=== PATIENT | female | born 1950 | race Caucasian/White ===

== ENCOUNTER 2021-03-18 19:56 | Inpatient (IN) | payer MEDICARE, SELFPAY ==
[2021-03-18 20:30] VITALS: BP 114/77; PULSE 84; PULSE 91; RESP 16; TEMP 36.1; O2SAT 96; O2SAT 97; BMI 24.5
[2021-03-18 21:03] VITALS: BP 114/77; PULSE 91; RESP 16; TEMP 36.1; O2SAT 97
--- NOTE | 2021-03-18 21:11 | PC.NURSE ---
PT arrived to the as an inpatient bed search, seen in the community by TORSTEN.
--- NOTE | 2021-03-18 21:12 | PC.NURSE ---
Aracely OLIVIER provided a contact for the PT's health care proxy. Sirena Brady (daughter) [phone].
--- NOTE | 2021-03-18 22:05 | ED.PSYCH ---
HPI - Psych General Chief Complaint: Psychiatric Symptoms Stated Complaint: SECTION 12 Time Seen by Provider: 03/18/21 21:57 Source: patient Mode of arrival: EMS Limitations: no limitations History of Present Illness HPI Narrative: Patient has history of bipolar disorder with multiple episodes of manic episode when she thrashes the stuff today she trashed her trailer and had only 1 glass of Kahlua earlier at this time patient's car relaxed does not know why this happened, patient on Zyprexa complaint: anxiety Duration: intermittent History of same: Yes Related Data Home Medications Medication Instructions Recorded Confirmed atorvastatin 1 tab PO BEDTIME 03/18/21 03/18/21 lisinopril 1 tab PO DAILY 03/18/21 03/18/21 olanzapine 1 tab PO BEDTIME 03/18/21 03/18/21 trazodone 1 tab PO BEDTIME 03/18/21 03/18/21 Allergies Allergy/AdvReac Type Severity Reaction Status Date / Time No Known Allergies Allergy Unverified 08/13/20 17:06 [No Known Allergies*] Review of Systems Review of Systems: Constitutional : No Fever, No Chills ENT/Mouth : No Ear Pain, No Nasal Congestion, No sore throat Eyes: No Eye Pain, No Swelling, No Redness Cardiovascular : No Chest Pain, No SOB Respiratory : No Cough, No Sputum, No Dyspnea Gastrointestinal : No Nausea, No Vomiting, No Diarrhea, No Hematochezia, No Melena Genitourinary : No Dysuria, No Urinary Frequency, No Hematuria Musculoskeletal : No Myalgias Skin : No Skin Lesions, No rash Neuro : No Weakness, No Numbness, No Paresthesias, No Dizziness, No Headache Psych : positive Anxiety, -ve Depression, -ve SI/HI Heme/Lymph: No Lymphadenopathy Endocrine : No Polyuria, No Polydipsia PMFSH Past Medical History Medical History (Updated 03/19/21 @ 01:36 by Mj Mccann MD) Bipolar 1 disorder Social History Social History Alcohol intake: current Alcohol intake frequency: a few times a month Alcohol type: other Smoking Status: Never smoker Use of substances other than those prescribed or required for medical reasons: No Advance Directives: No Advance Directives Information Provided: Yes Physical Exam Vital Signs: Vital Signs: Last Vital Signs Temp 97 F 03/18/21 21:03 Pulse 91 03/18/21 21:03 Resp 16 03/18/21 21:03 BP 114/77 03/18/21 21:03 Pulse Ox 97 03/18/21 21:03 Body Mass Index 24.5 Appearance: Alert. Oriented X3. No acute distress. Eyes: Pupils equal, round and reactive to light. ENT: Pharynx normal. Neck: Normal inspection. Neck supple. CVS: Normal heart rate and rhythm. Pulses normal. Respiratory: No respiratory distress. Breath sounds normal. Abdomen: Soft and nontender. Bowel sounds are present, no mass palpable, no CVA tenderness Skin: Skin warm and dry. Normal skin color. Normal skin turgor. Extremities: No lower extremity edema. No calf tenderness Neuro: Oriented X 3. No motor deficit. No sensory deficit. Cranial nerves intact no focal deficit Psych: Calm and cooperative fair judgment denied any suicidal ideation or homicidal feeling. No hallucination or delusions MDM - Psych MDM Narrative Medical decision making narrative: Patient with bipolar disorder with episodes of walter. Will get crisis evaluation. Lab Data Attestation: I reviewed the patient's lab results. Labs: Lab Results 03/18/21 03/18/21 03/18/21 Range/Units 21:16 21:16 23:24 Urine Color YELLOW Urine Appearance CLEAR Urine pH 7.0 (5.0-8.0) Ur Specific [place] 1.015 (1.005-1.025) Urine Protein NEG (NEG-TRACE) MG/DL Urine Glucose (UA) NEG (NEG) MG/DL Urine Ketones NEG (NEG) MG/DL Urine Blood NEG (NEG) Urine Nitrite NEG (NEG) Ur Leukocyte Esterase NEG (NEG) Urine Opiates Screen Not Detected (Not Detect) Ur Barbiturates Screen Not Detected (Not Detect) Ur Phencyclidine Scrn Not Detected (Not Detect) Ur Amphetamines Screen Not Detected (Not Detect) U Benzodiazepines Scrn Not Detected (Not Detect) Urine Cocaine Screen Not Detected (Not Detect) U Marijuana (THC) Screen Not Detected (Not Detect) COVID-19 ([facility]) Negative (Negative) COVID-19 Clin Com See Note Discharge Plan Discharge Clinical Impression: Bipolar disorder Qualifiers: Active/Remission status: currently active Current bipolar episode type: mixed Current episode severity: moderate Qualified Code(s): F31.62 - Bipolar disorder, current episode mixed, moderate Prescriptions: No Action atorvastatin 80 mg tablet 1 tab PO BEDTIME RF: 0 trazodone 50 mg tablet 1 tab PO BEDTIME RF: 0 lisinopril 20 mg tablet 1 tab PO DAILY RF: 0 olanzapine 20 mg tablet 1 tab PO BEDTIME RF: 0
[2021-03-18 22:25] LABS: Amphetamine Screen Urine Not Detected (Not Detect); Barbiturates, Urine Not Detected (Not Detect); Benzodiazepines Screen Urine Not Detected (Not Detect); Cannabinoid Screen Urine Not Detected (Not Detect); Cocaine Screen Urine Not Detected (Not Detect); Opiate Screen Urine Not Detected (Not Detect); Phencyclidine Screen Urine Not Detected (Not Detect)
--- NOTE | 2021-03-18 22:41 | PC.NURSE ---
This nurse made two attempt to collect labs from the PT. PT refused to have labs drawn.
[2021-03-18 22:46] LABS: Glucose Urine UA NEG (NEG); Leukocyte Esterase Urine NEG (NEG); Nitrite Urine NEG (NEG); Specific Gravity - Urine 1.015 (1.005-1.025); Urine Blood NEG (NEG); Urine Ketones NEG (NEG); Urine Protein NEG (NEG-TRACE)
[2021-03-18 22:49] LABS: Appearance Urine CLEAR; Color Urine YELLOW
[2021-03-18 23:46] LABS: COVID-19 Test Negative (Negative)
[2021-03-19] MEDS: OLANZapine 10 MG TABLET 20 MG PO ×2 (00:28→20:21)
[2021-03-19] MEDS: traZODone HCL 50 MG TABLET PO ×2 (00:29→20:21)
[2021-03-19] MEDS: Atorvastatin Calcium 80 MG TABLET PO (00:29)
[2021-03-19 01:50] VITALS: BP 122/78; PULSE 97; RESP 16; TEMP 36.9; O2SAT 95
--- NOTE | 2021-03-19 06:56 | PC.NURSE ---
Report recieved. PT currently sleeping, respirations even and unlabored, in no apparent distress. PT is inpatient bedsearch.
[2021-03-19 09:03] VITALS: BP 134/80; PULSE 91; RESP 14; TEMP 36.4; O2SAT 97
--- NOTE | 2021-03-19 09:16 | PC.NURSE ---
Pt politely declined AM medication, states she is too tired. Medication education provided, pt continues to decline.
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
[2021-03-19 12:56] VITALS: BP 146/104; PULSE 110; O2SAT 96
--- NOTE | 2021-03-19 13:00 | PC.NURSE ---
Pt's blood pressure elevated 146/104 HR 110, pt declined am lisinopril, provider notified, ok to give lisinopril now.
[2021-03-19 13:01] VITALS: BP 146/104; PULSE 110
[2021-03-19] MEDS: lisinopriL 20 MG TABLET PO (13:01)
[2021-03-19 18:28] VITALS: BP 103/70; PULSE 116; RESP 18; TEMP 36.6; O2SAT 98
[2021-03-19 20:31] VITALS: BP 107/91; PULSE 82; RESP 16; TEMP 36.7; O2SAT 94
[2021-03-20 01:12] VITALS: BP 101/51; PULSE 65; RESP 15; TEMP 36.7; O2SAT 97
[2021-03-20] MEDS: Docusate Sodium 100 MG CAPSULE PO (02:17)
--- NOTE | 2021-03-20 07:10 | PC.NURSE ---
Report received from PIA Webber. Pt awake, alert, no concerns reported at this time.
[2021-03-20 08:10] VITALS: BP 138/88; PULSE 98; RESP 17; TEMP 36.8; O2SAT 98
--- NOTE | 2021-03-20 08:27 | ECG_ITS ---
Test Reason : MEDCLEARANCE Blood Pressure : / mmHG Vent. Rate : 073 BPM Atrial Rate : 073 BPM P-R Int : 152 ms QRS Dur : 080 ms QT Int : 400 ms P-R-T Axes : 076 051 040 degrees QTc Int : 440 ms Normal sinus rhythm Normal ECG No previous ECGs available Referred By: Madison Rodriguez Electronically Signed By:BENJIE SAMUEL MD
[2021-03-20 08:30] VITALS: BP 138/88; PULSE 88
[2021-03-20] MEDS: lisinopriL 20 MG TABLET PO (08:30)
--- NOTE | 2021-03-20 08:56 | PC.NURSE ---
Pt alert, oriented x3 - states that she has not moved her bowels in one week. Provider aware. Pt denies pain when lying down but reports some when she is walking- walks w/ limp chronically. Pt offered ibuprofen for pain. Pt gives staff permission to speak with daughter.
[2021-03-20 09:17] LABS: MANUAL DIFF FLAG NO
[2021-03-20 09:18] LABS: Basophils Absolute Auto 0.1 X10*3/uL (0.0-0.2); Basophils Percent Auto 0.9 % (0-2); Eosinophils Absolute Auto 0.5 X10*3/uL (0.0-0.4); Eosinophils Percent Auto 6.7 % (0-4); Hematocrit 39.2 % (37-47); Hemoglobin 12.7 g/dl (12.0-16.0); Imm Gran Abs Auto 0.02 X10*3/uL (0.00-0.03); Imm Gran Pct Auto 0.3 % (0.0-0.4); Lymphocytes Absolute Auto 1.8 X10*3/uL (1.2-4.9); Mean Corpuscular HGB Conc 32.4 g/dl (31.0-35.0); Mean Corpuscular Hemoglobin 28.9 pg (27.0-33.0); Mean Corpuscular Volume 89.3 fL (80-98); Mean Platelet Volume 8.9 fL (9.4-12.3); Monocytes Absolute Auto 0.7 X10*3/uL (0.1-1.2); Monocytes Percent Auto 10.8 % (2-11); Neutrophils Absolute Auto 3.7 X10*3/uL (2.0-8.3); Neutrophils Percent Auto 54.3 % (45-73); Platelet Count 292 X10*3/uL (160-400); Red Blood Count 4.39 X10*6/uL (4.20-5.50); Red Cell Distribution Width 12.9 % (11.0-16.0); White Blood Count 6.7 X10*3/uL (4.8-10.8)
[2021-03-20 09:41] LABS: Alanine Aminotransferase 19 U/L (0-31); Albumin Level 3.7 g/dL (3.5-5.0); Alkaline Phosphatase 56 U/L (39-117); Anion Gap 11 (12-20); Aspartate Amino Transferase 19 U/L (5-31); Bilirubin Direct < 0.2 mg/dL (0.0-0.5); Bilirubin Total 0.3 mg/dL (0.0-1.0); Blood Urea Nitrogen 18 mg/dL (9-16); Calcium 8.9 mg/dL (8.4-10.2); Carbon Dioxide 26 mmol/L (22-29); Chloride 108 mmol/L (96-108); Creatinine Clr Calc Pharmacy 61.6; Estimated Glomerular Filt Rate > 60; Glucose Random 76 mg/dL (60-115); Sodium 141 mmol/L (135-145); Total Protein 6.4 g/dL (6.5-8.0)
[2021-03-20 09:49] LABS: Glucose Urine UA NEG (NEG); Leukocyte Esterase Urine 1+ (NEG); Nitrite Urine NEG (NEG); PH 6.5 (5.0-8.0); Specific Gravity - Urine <= 1.005 (1.005-1.025); UACC Culture Trigger YES; Urine Blood NEG (NEG); Urine Ketones NEG (NEG); Urine Protein NEG (NEG-TRACE)
[2021-03-20 09:50] LABS: Appearance Urine CLEAR; Color Urine STRAW
[2021-03-20 10:22] LABS: RBC Urine 0 /HPF (0); Squamous Epithelial Cell Urine 1+ /LPF
[2021-03-20] MEDS: Ibuprofen 600 MG TABLET PO ×2 (10:22→16:59)
--- NOTE | 2021-03-20 10:23 | PC.NURSE ---
Pt pleasant, conversing appropriately w/ staff, no concerns reported at this time.
--- NOTE | 2021-03-20 12:08 | PC.NURSE ---
Report received. Pt resting comfortably. No complaints at this time. Calm and cooperative. Continues to be a section 12 bed search
--- NOTE | 2021-03-20 15:24 | PC.NURSE ---
Pt watching TV in the common area at current, calm and cooperative, no complaints at this time.
[2021-03-20 15:53] VITALS: BP 130/94; PULSE 118; RESP 20; TEMP 36.2; O2SAT 99
--- NOTE | 2021-03-20 18:09 | PC.NURSE ---
Pt eating dinner in the common area, calm and cooperative, no complaints at this time.
[2021-03-20] MEDS: OLANZapine 10 MG TABLET 20 MG PO (20:22)
[2021-03-20] MEDS: traZODone HCL 50 MG TABLET PO (20:22)
[2021-03-20] MEDS: Ibuprofen 400 MG TABLET PO (23:57)
[2021-03-21 01:04] VITALS: BP 136/85; PULSE 64; RESP 15; TEMP 36.6; O2SAT 96
--- NOTE | 2021-03-21 07:08 | PC.NURSE ---
Report received from PIA Webber. Pt awake, stating she has not moved her bowels in '6 or 7 days.' Pt assured will review w/ provider.
[2021-03-21 07:45] VITALS: BP 142/76; PULSE 86
[2021-03-21] MEDS: lisinopriL 20 MG TABLET PO (07:45)
--- NOTE | 2021-03-21 07:50 | PC.NURSE ---
Pt alert, oriented x3. Pt reports no effect from Senna given yesterday. States that Fish oil is the only treatment helpful for constipation. Pt states she slept well.
[2021-03-21 07:53] VITALS: BP 142/76; PULSE 86; RESP 15; TEMP 36.7; O2SAT 96
--- NOTE | 2021-03-21 10:53 | PC.NURSE ---
Pt declined MOM stating 'I can't take that it makes me throw up.' Reviewed medications w/ pt- pt appears able to take medications as pill but not as liquid or powder.
--- NOTE | 2021-03-21 12:06 | PC.NURSE ---
Daughter in to visit- pt alert, pleasant. No concerns at this time.
[2021-03-21] MEDS: bisacodyL 5 MG TABLET.DR 10 MG PO (13:14)
[2021-03-21 14:00] VITALS: RESP 20
--- NOTE | 2021-03-21 16:22 | PC.NURSE ---
Pt awake, alert, pleasant. Conversing w/ staff and other patients at time. No report of any concerns, states visit w/ daughter and friend went well.
[2021-03-21 16:39] VITALS: BP 134/84; PULSE 112; RESP 18; TEMP 36.2; O2SAT 96
--- NOTE | 2021-03-21 17:23 | PC.NURSE ---
Pt initially reporting some pain, chronic in hip and knee- offered tylenol which pt refused. Pt then offered Ibuprofen but now stating she is not having significant pain, and declined. Pt states pain is worse when she has been lying down but when upright or in motion, pt states pain is not significant.
--- NOTE | 2021-03-21 18:16 | PC.NURSE ---
Pt awake, alert, pleasant- currently eating dinner. No concerns reported.
--- NOTE | 2021-03-21 19:36 | PC.NURSE ---
Patient in bed appears sleeping at this time, no distress reported, per report patient had uneventful day, will continue to monitor.
[2021-03-21] MEDS: OLANZapine 10 MG TABLET 20 MG PO (20:33)
[2021-03-21] MEDS: traZODone HCL 50 MG TABLET PO (20:33)
[2021-03-21 23:44] VITALS: BP 119/69; PULSE 87; RESP 16; TEMP 36.6; O2SAT 99
[2021-03-22] MEDS: Ibuprofen 600 MG TABLET PO (05:43)
--- NOTE | 2021-03-22 05:44 | PC.NURSE ---
Patient reported hip pain 05/06, administered Ibuprofen 600 mg as requested/ordered, pending effect, patient in her room refreshing with coffee and gram crackers, will continue to monitor
[2021-03-22 05:45] VITALS: RESP 16
--- NOTE | 2021-03-22 07:03 | PC.NURSE ---
Report received from PIA Webber. Pt resting, resp unlabored.
[2021-03-22 08:40] VITALS: BP 154/94; PULSE 91
[2021-03-22] MEDS: lisinopriL 20 MG TABLET PO (08:40)
--- NOTE | 2021-03-22 10:30 | PC.NURSE ---
Pt reports she moved her bowels yesterday. Also stating that she is having knee pain. Je Rodriguez notified. Pt alert, pleasant, no other concerns reported.
--- NOTE | 2021-03-22 12:08 | PC.NURSE ---
Pt resting, resp unlabored
[2021-03-22 14:00] VITALS: RESP 18
--- NOTE | 2021-03-22 14:48 | PC.NURSE ---
Pt updated re: bed status, currently resting in room.
[2021-03-22] MEDS: Ibuprofen 400 MG TABLET PO (14:55)
[2021-03-22 16:17] VITALS: BP 132/79; PULSE 81; RESP 20; O2SAT 97
--- NOTE | 2021-03-22 16:43 | PC.NURSE ---
Pt reports good effect from the ibuprofen given, awaiting re-evaluation by [facility].
--- NOTE | 2021-03-22 17:13 | PC.NURSE ---
Pt evaluated by TORSTEN
--- NOTE | 2021-03-22 18:39 | PC.NURSE ---
Pt resting, resp unlabored
--- NOTE | 2021-03-22 19:02 | PC.NURSE ---
Report received. PT is sleeping in bed. Respirations even and unlabored. PT is inpatient bed search.
[2021-03-22] MEDS: OLANZapine 10 MG TABLET 20 MG PO (20:38)
[2021-03-22] MEDS: traZODone HCL 50 MG TABLET PO (20:39)
[2021-03-22] MEDS: Atorvastatin Calcium 80 MG TABLET PO (20:40)
[2021-03-23 00:05] VITALS: BP 100/62; PULSE 80; RESP 16; TEMP 36.2; O2SAT 93
--- NOTE | 2021-03-23 07:06 | PC.NURSE ---
Report recieved. PT currently walking around unit, calm and cooperative. PT is inpatient bedsearch.
[2021-03-23 09:41] VITALS: BP 115/79; PULSE 96; RESP 17; TEMP 36.2; O2SAT 96
[2021-03-23 10:01] VITALS: BP 115/79; PULSE 96
[2021-03-23] MEDS: lisinopriL 20 MG TABLET PO (10:01)
[2021-03-23] MEDS: Docusate Sodium 100 MG CAPSULE PO (14:05)
[2021-03-23 18:46] VITALS: BP 118/62; PULSE 75; RESP 18; TEMP 36.7; O2SAT 95
--- NOTE | 2021-03-23 19:20 | PC.NURSE ---
Report received. Pt is sleeping in her room. Respirations even and unlabored. PT waiting to be transferred to .
[2021-03-23] MEDS: OLANZapine 10 MG TABLET 20 MG PO (20:25)
[2021-03-23] MEDS: traZODone HCL 50 MG TABLET PO (20:26)
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
[2021-03-24 06:00] VITALS: BP 147/98; PULSE 103; RESP 18; TEMP 36.2; O2SAT 97
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
[2021-03-24 09:13] VITALS: BP 112/61; PULSE 112; RESP 17; TEMP 36.4; O2SAT 96
[2021-03-24 09:15] VITALS: BP 112/61; PULSE 112
[2021-03-24] MEDS: lisinopriL 20 MG TABLET PO (09:15)
[2021-03-24 11:27] LABS: Cholesterol 155 mg/dL; HDL Cholesterol 69 mg/dL; LDL Cholesterol Calculated 61 mg/dl; Triglycerides 127 mg/dL
[2021-03-24 12:35] LABS: Estimated Average Glucose 111 mg/dL; Hemoglobin A1c % 5.5 %
[2021-03-24] MEDS: Docusate Sodium 100 MG CAPSULE PO (14:50)
[2021-03-24 18:00] VITALS: BP 145/70; PULSE 116; TEMP 36.6
[2021-03-24] MEDS: Ibuprofen 400 MG TABLET PO (19:44)
[2021-03-24] MEDS: OLANZapine 10 MG TABLET 20 MG PO (20:59)
[2021-03-24] MEDS: Atorvastatin Calcium 80 MG TABLET PO (20:59)
[2021-03-24] MEDS: traZODone HCL 50 MG TABLET PO (21:00)
[2021-03-25 05:11] VITALS: BP 101/68; PULSE 92; RESP 18; TEMP 36.4; O2SAT 95
[2021-03-25 07:00] VITALS: BMI 23.3
[2021-03-25 08:23] VITALS: BP 108/74; PULSE 85
[2021-03-25] MEDS: lisinopriL 20 MG TABLET PO (08:23)
--- NOTE | 2021-03-25 10:01 | HO.PSYCHPN ---
Subjective Subjective Date of Service: 03/25/21 Reason For Visit: Acute Psychosis Interim History: Vitals: WNL Pt friendly, calm and cooperative on approach. She reports she's in a good mood and that she slept well. Patient asked if flex o writer operator has spoken to her daughter and says she's hoping to go home soon. Parts Specialist discussed history further and pt explained that right after she spoke to her sister she became upset and started destroying the house but that it got it all out of me and fully resolved. She shared that she has a history of severe manic episodes but none for a while. Parts Specialist asked pt about daughters concern that patient sometimes lets homeless people stay with her. Dena says she does this from time to time and knows it's not a good idea; she explains she's trying to help them, but ultimately it's not really fair to [her] since they take advantage of [her] kindness and ultimately not fair to them since they expect money even when patient does not have extra. Patient says she won't do it anymore. Pt reiterates she'd like to go home but that she'll defer to teams decision. Other hx: hurt rt knee in skiing accident decades ago Hurt right hip from fall at work pt used to work for [employer] and retired at 65 Parts Specialist spoke with patients daughter Adriane who corroborates patients account Daughter, who visited yesterday and speaks to her daily while on the unit, agrees that patient is with it...not manic and pretty much back to her normal self. She reports patient has had a very good year since her last admission may 2020 and has been stable and in good mood. She says she may have been a little off in the day or two leading up to incident, but agrees it appears to have fully resolved and corroborates that patients relationship with sister is very triggering. Daughter agrees that patient is safe and likely able to discharge soon to return home. Medication Compliance: Yes Side effects from medications: No Mental Status Exam Mental Status Exam Narrative: Pt is alert and oriented; behavior is cooperative, friendly and calm; patient is not in distress; dressed in hospital gown with adequate hygiene; mood is described as good and affect congruent; eye contact appropriate; Speech is normal rate, volume and prosody and not pressured; no psychomotor agitation/retardation present; thought process is organized, linear, logical and goal directed. Thought content is on getting back home and otherwise pertinent to relevant topics and without any delusional content, paranoid ideations or grandiosity; denies any SI/HI. There is no evidence of perceptual disturbance. Patients insight and judgment appear intact. Diagnostics Vital Signs (24Hr): Vital Signs - 24 hr 03/24/21 18:00 03/25/21 05:11 03/25/21 08:23 Temperature 97.9 F 97.5 F Pulse Rate 116 H 92 85 Respiratory Rate 18 Blood Pressure 145/70 H 101/68 108/74 Pulse Oximetry 95 Body Mass Index 24.5 Labs Results: 03/20/21 09:12 03/20/21 09:12 Labs: Laboratory Results - last 48 hr 03/24/21 03/24/21 10:45 10:45 Estimat Average Glucose 111 Hemoglobin A1c % 5.5 Triglycerides 127 Cholesterol 155 LDL Cholesterol, Calc 61 HDL Cholesterol 69 Medications Medications Current Medications Generic Name Dose Route Start Last Admin Trade Name Freq PRN Reason Stop Dose Admin Acetaminophen 650 mg 03/23/21 21:34 Acetaminophen 325 Mg Tablet PO Q6H PRN Headache/Pain Mild Scale (1-3) Al Hydroxide/Mg Hydroxide 30 ml 03/23/21 21:34 Magnesium Hydrox/Alum Hydrox 30 Ml Oral.Susp PO Q6H PRN Heartburn/Nausea Atorvastatin Calcium 80 mg 03/18/21 23:45 03/24/21 20:59 Atorvastatin Calcium 80 Mg Tablet PO 80 mg BEDTIME RAFAELA Administration Cefuroxime Axetil 250 mg 03/22/21 10:00 03/24/21 21:00 Cefuroxime Axetil 250 Mg Tablet PO 03/29/21 09:59 250 mg Q12H RAFAELA Administration Docusate Sodium 100 mg 03/23/21 13:23 03/24/21 14:50 Docusate Sodium 100 Mg Capsule PO 100 mg BID PRN Administration Constipation Ibuprofen 400 mg 03/22/21 10:56 03/24/21 19:44 Ibuprofen 400 Mg Tablet PO 400 mg RQ6H PRN Administration pain Lisinopril 20 mg 03/19/21 09:00 03/25/21 08:23 Lisinopril 20 Mg Tablet PO 20 mg DAILY RAFAELA Administration Protocol Magnesium Hydroxide 30 ml 03/21/21 09:05 Milk Of Magnesia 30 Ml Oral.Susp PO DAILY PRN Constipation Magnesium Hydroxide 30 ml 03/23/21 21:34 Milk Of Magnesia 30 Ml Oral.Susp PO DAILY PRN Constipation Nicotine Polacrilex 4 mg 03/23/21 21:34 Nicotine Polacrilex 2 Mg Gum BUCCAL Q2H PRN Nicotine Cravings Olanzapine 20 mg 03/18/21 23:45 03/24/21 20:59 Olanzapine 10 Mg Tablet PO 20 mg BEDTIME RAFAELA Administration Senna 7.5 ml 03/20/21 10:28 03/20/21 15:55 Senna [place] Extract Oral Syrup 15 Ml Syrup PO 7.5 ml ONCE PRN Administration Constipation Trazodone HCl 50 mg 03/18/21 23:45 03/24/21 21:00 Trazodone Hcl 50 Mg Tablet PO 50 mg BEDTIME RAFAELA Administration Allergies Allergies Allergy/AdvReac Type Severity Reaction Status Date / Time No Known Allergies Allergy Unverified 08/13/20 17:06 [No Known Allergies*] Assessment & Plan Assessment/Plan: Pt is a 68 yo female with hx of Bipolar disorder, hx of trauma and etoh abuse (sober for 3 years) who presents following few days of decompensation and destructive behavior in face of psychosocial stresses. Pt has been stable for the past year, without manic or depressive episodes, sober and taking medications regularly until this incident, the explosive part only lasting a few hours. Pt's has chronic guilt over past behaviors which can intermittently become overwhelming; this recent brief bout of dysregulated behavior seems to have been triggered by upsetting phone call with patients sister which historically exacerbates guilt. Patient's behaviors did get out of control. However, given that pt was at baseline until the episode, the episode was triggered by a specific event, was brief and quickly fully resolved (pt says i got it out of my system ), it seems this incident was an overwhelmingly emotional response following exacerbation of her past trauma and not a manic episode. Since admission, pt has remained calm, in good behavioral control, without manic symptoms and with insight into illness. She is taking medications that seems to be effective and are well tolerated; she has good rapport with outpt providers and supportive family. Patient daughter corroborates and agrees patient is at baseline. Parts Specialist discussed admission and patient is willing to remain on unit to further demonstrate stability, however as long as she continues to remain stable, patient is appropriate for discharge on 03/26/21. DX: Adjustment disorder with disturbance of mood and conduct, in full remission Bipolar 1, severe, recurrent in remission (by hx) Provisional dx of PTSD, chronic PLAN: -safety, stabilization -pt on CV -continue Zyprexa 20mg at bedtime (flex o writer operator confirmed with [facility] in [place] that pt is consistent with this med); pt says she likes this med, it's effective and denies any side-effects. Parts Specialist offered to explain risks of taking this medication but patient said she did not want to hear it and wants to remain taking on it -continue other home meds -pt reached out to primary provider, Dr. Db Figueredo. Greater than 50% of the session was spent on counseling and/or coordination of care Reason for contiued inpatient stay Substantial Risk for: stable for discharge (further demonstrate stability)
--- NOTE | 2021-03-25 14:34 | PM.PSYDC ---
DS: Providers Provider Date of Service: 03/26/21 Date of admission: 03/23/21 21:22 Primary care physician: Unknown Physician DS: Diagnosis Discharge Diagnosis (1) Bipolar 1 disorder, manic, full remission: Status: Acute (2) Adjustment disorder with mixed disturbance of emotions and conduct in remission: Status: Acute DS: Medications Discharge Medications Home Medications: Home Medications Medication Instructions Recorded Confirmed atorvastatin 1 tab PO BEDTIME 03/18/21 03/18/21 lisinopril 1 tab PO DAILY 03/18/21 03/18/21 olanzapine 1 tab PO BEDTIME 03/18/21 03/18/21 trazodone 1 tab PO BEDTIME 03/18/21 03/18/21 Discharge Plan Discharge Patient Disposition: Home, Self-Care Discharge Diagnosis: adjustment disorder with disturbance of emotion and conduct, in full remission bipolar type I, severe in full remission Referrals: LIN [facility]IEST [Other] - 03/27/21 ([facility] 03[facility]21 they will assist with medication administration and will also assess the need for physical therapy. ) [facility] [Other] (Referral submitted. They will follow up with you to arrange an in-home assessment) Aparna Paez (therapist) [Other] (Referral made. Either they will call you, or hospital social work supervisor will call you with appointment) Db Figueredo (psychiatrist) [Other] (Referral made. Either they will call you, or hospital social work supervisor will call you with appointment) Gail Kirkpatrick MD [Physician] - 03/31/21 9:45 am (Follow up appointment over phone. ) Discharge Medications: Continued atorvastatin 80 mg tablet 1 tab PO BEDTIME RF: 0 trazodone 50 mg tablet 1 tab PO BEDTIME RF: 0 lisinopril 20 mg tablet 1 tab PO DAILY RF: 0 olanzapine 20 mg tablet 1 tab PO BEDTIME RF: 0 Discharge Orders: Discharge Order (Routine); Ordered 03/26/21 Ordered By: Wesley Bacon Diet: regular diet Activity on Discharge: As tolerated Stand Alone Forms: Patient Portal Discharge page, Community Support Care Plan Goals: Take medications as prescribed. See outpatient providers for follow up. Health Concerns: Follow up with PCP regarding lipid panel and HBA1C Plan of Treatment: Continue with outpatient providers Assessment: Patient is not in imminent risk of harm to self or others, is stable and appropriate for discharge Data Data Completed and Pending Completed studies during hospitalization [Text1]: 03/18/21 03/18/21 03/18/21 21:16 21:16 23:24 WBC RBC Hgb Hct MCV MCH MCHC RDW Plt Count MPV Immature Gran % (Auto) Neut % (Auto) Lymph % (Auto) [place] % (Auto) Eos % (Auto) Baso % (Auto) Lymph # (Auto) [place] # (Auto) Eos # (Auto) Baso # (Auto) Abs Immat Gran (auto) Absolute Neuts (auto) Absolute Nucleated RBC Nucleated RBC % (auto) Sodium Potassium Chloride Carbon Dioxide Anion Gap BUN Creatinine Estim Creat Clear Calc Estimated GFR Random Glucose Estimat Average Glucose Hemoglobin A1c % Calcium Total Bilirubin Direct Bilirubin AST ALT Alkaline Phosphatase Total Protein Albumin Triglycerides Cholesterol LDL Cholesterol, Calc HDL Cholesterol Urine Color YELLOW Urine Appearance CLEAR Urine pH 7.0 Ur Specific [place] 1.015 Urine Protein NEG Urine Glucose (UA) NEG Urine Ketones NEG Urine Blood NEG Urine Nitrite NEG Ur Leukocyte Esterase NEG Urine RBC Urine WBC Ur Squamous Epith Cells Urine Bacteria Urine Mucus Urine Opiates Screen Not Detected Ur Barbiturates Screen Not Detected Ur Phencyclidine Scrn Not Detected Ur Amphetamines Screen Not Detected U Benzodiazepines Scrn Not Detected Urine Cocaine Screen Not Detected U Marijuana (THC) Screen Not Detected COVID-19 ([facility]) Negative COVID-19 Clin Com See Note 03/20/21 03/20/21 03/20/21 09:12 09:12 09:35 WBC 6.7 RBC 4.39 Hgb 12.7 Hct 39.2 MCV 89.3 MCH 28.9 MCHC 32.4 RDW 12.9 Plt Count 292 MPV 8.9 L Immature Gran % (Auto) 0.3 Neut % (Auto) 54.3 Lymph % (Auto) 27.0 [place] % (Auto) 10.8 Eos % (Auto) 6.7 H Baso % (Auto) 0.9 Lymph # (Auto) 1.8 [place] # (Auto) 0.7 Eos # (Auto) 0.5 H Baso # (Auto) 0.1 Abs Immat Gran (auto) 0.02 Absolute Neuts (auto) 3.7 Absolute Nucleated RBC 0.000 Nucleated RBC % (auto) 0.0 Sodium 141 Potassium 4.0 Chloride 108 Carbon Dioxide 26 Anion Gap 11 L BUN 18 H Creatinine 0.69 Estim Creat Clear Calc 61.6 Estimated GFR > 60 Random Glucose 76 Estimat Average Glucose Hemoglobin A1c % Calcium 8.9 Total Bilirubin 0.3 Direct Bilirubin < 0.2 AST 19 ALT 19 Alkaline Phosphatase 56 Total Protein 6.4 L Albumin 3.7 Triglycerides Cholesterol LDL Cholesterol, Calc HDL Cholesterol Urine Color STRAW Urine Appearance CLEAR Urine pH 6.5 Ur Specific [place] <= 1.005 Urine Protein NEG Urine Glucose (UA) NEG Urine Ketones NEG Urine Blood NEG Urine Nitrite NEG Ur Leukocyte Esterase 1+ H Urine RBC 0 Urine WBC 5-9 H Ur Squamous Epith Cells 1+ Urine Bacteria NONE Urine Mucus NONE Urine Opiates Screen Ur Barbiturates Screen Ur Phencyclidine Scrn Ur Amphetamines Screen U Benzodiazepines Scrn Urine Cocaine Screen U Marijuana (THC) Screen COVID-19 ([facility]) Ion Core 03/24/21 03/24/21 10:45 10:45 WBC RBC Hgb Hct MCV MCH MCHC RDW Plt Count MPV Immature Gran % (Auto) Neut % (Auto) Lymph % (Auto) [place] % (Auto) Eos % (Auto) Baso % (Auto) Lymph # (Auto) [place] # (Auto) Eos # (Auto) Baso # (Auto) Abs Immat Gran (auto) Absolute Neuts (auto) Absolute Nucleated RBC Nucleated RBC % (auto) Sodium Potassium Chloride Carbon Dioxide Anion Gap BUN Creatinine Estim Creat Clear Calc Estimated GFR Random Glucose Estimat Average Glucose 111 Hemoglobin A1c % 5.5 Calcium Total Bilirubin Direct Bilirubin AST ALT Alkaline Phosphatase Total Protein Albumin Triglycerides 127 Cholesterol 155 LDL Cholesterol, Calc 61 HDL Cholesterol 69 Urine Color Urine Appearance Urine pH Ur Specific [place] Urine Protein Urine Glucose (UA) Urine Ketones Urine Blood Urine Nitrite Ur Leukocyte Esterase Urine RBC Urine WBC Ur Squamous Epith Cells Urine Bacteria Urine Mucus Urine Opiates Screen Ur Barbiturates Screen Ur Phencyclidine Scrn Ur Amphetamines Screen U Benzodiazepines Scrn Urine Cocaine Screen U Marijuana (THC) Screen COVID-19 ([facility]) COVID-[facility] CRM 03/20/21 09:32 Urine clean catch - Clean Catch Midstream Urine Culture - Final No growth. DS: Summary Time Spent with Patient Time attestation: Total time spent providing and/or coordinating discharge services:
[2021-03-25] MEDS: Ibuprofen 400 MG TABLET PO (16:19)
[2021-03-25 16:46] VITALS: BP 102/60; PULSE 86; RESP 16; TEMP 36.5; O2SAT 96
[2021-03-25] MEDS: Docusate Sodium 100 MG CAPSULE PO (18:43)
[2021-03-25] MEDS: OLANZapine 10 MG TABLET 20 MG PO (20:17)
[2021-03-25] MEDS: traZODone HCL 50 MG TABLET PO (20:17)
[2021-03-26 05:48] VITALS: BP 106/68; PULSE 104; RESP 18; TEMP 36.4; O2SAT 96
[2021-03-26 08:19] VITALS: BP 100/55; PULSE 93; RESP 16; O2SAT 95
[2021-03-26 08:48] VITALS: BP 100/55; PULSE 93
[2021-03-26] MEDS: lisinopriL 20 MG TABLET PO (08:48)
--- NOTE | 2021-03-26 10:05 | PC.NURSE ---
PT REPORTS READINESS AND AWARENESS FOR DISCHARGE. PT REPORTS A DECREASE IN ANXIETY AND DEPRESSION. PT STATES THAT SHE THOUGHT SHE WAS EMILIANO BUT REALIZED SHE IS NOT . PT DOES NOT RECALL WHAT HAPPENED WHEN SHE BLACKED OUT AND DESTROYED HER HOUSE. PT HAS BEEN VISIBLE ON THE UNIT. SHE IN SOCIALIZING WITH HER PEERS AND STAFF. PT HAS BEEN EATING WELL. SHE HAS BEEN SLEEPING BETTER. PT STATES THAT SHE IS EXCITED TO GO HOME BUT EVERYONEHERE HAS RACHAEL SO NICE AND IT HAS BEEN A PLEASANT EXPERIENCE . PT IS INDEPENDENTLY TAKING CARE OF HER ADLS, SHOWERING AND CHANGING HER CLOTHING. PT WAS RECEPTIVE TO EDUCATION REGARDING COPING SKILLS AND MEDICATION. PT IS GOAL ORIENTED AND DRIVEN TO SUCCEED IN HER TREATMENT PLAN. PTS PAPERWORK HAS BEEN FAXED TO PROVIDER PER PROTOCOL.
--- NOTE | 2021-03-26 10:31 | P.PNPSI_ITS ---
Subjective Subjective Date of Service: 03/26/21 Reason For Visit: Acute Psychosis Interim History: met with patient she reports being in a good mood and looking forward to returning home. She says she slept well and denies any SI or AVH. She continues to feel back to her normal self. She reiterates that she does not need any prescriptions for medications as they were recently filled. Medication Compliance: Yes Side effects from medications: No Attending Groups: Yes Mental Status Exam Mental Status Exam Narrative: Pt is alert and oriented; behavior is cooperative, friendly and calm; patient is not in distress; dressed in casual and appropriate cloths with good hygiene; mood is described as good and affect congruent; eye contact appropriate; Speech is normal rate, volume and prosody and not pressured; no psychomotor agitation/retardation present; thought process is organized, linear, logical and goal directed. Thought content is on getting back home and otherwise pertinent to relevant topics and without any delusional content, paranoid ideations or grandiosity; denies any SI/HI. There is no evidence of perceptual disturbance. Patients insight and judgment appear intact. Diagnostics Vital Signs (24Hr): Vital Signs - 24 hr 03/25/21 16:46 03/26/21 05:48 03/26/21 08:19 Temperature 97.7 F 97.6 F Pulse Rate 86 104 H 93 Respiratory Rate 16 18 16 Blood Pressure 102/60 106/68 100/55 L Pulse Oximetry 96 96 95 03/26/21 08:48 Temperature Pulse Rate 93 Respiratory Rate Blood Pressure 100/55 L Pulse Oximetry Body Mass Index 23.3 Labs Results: 03/20/21 09:12 03/20/21 09:12 Labs: Laboratory Results - last 48 hr 03/24/21 03/24/21 10:45 10:45 Estimat Average Glucose 111 Hemoglobin A1c % 5.5 Triglycerides 127 Cholesterol 155 LDL Cholesterol, Calc 61 HDL Cholesterol 69 Medications Medications Current Medications Generic Name Dose Route Start Last Admin Trade Name Freq PRN Reason Stop Dose Admin Acetaminophen 650 mg 03/23/21 21:34 Acetaminophen 325 Mg Tablet PO Q6H PRN Headache/Pain Mild Scale (1-3) Al Hydroxide/Mg Hydroxide 30 ml 03/23/21 21:34 Magnesium Hydrox/Alum Hydrox 30 Ml Oral.Susp PO Q6H PRN Heartburn/Nausea Atorvastatin Calcium 80 mg 03/18/21 23:45 03/25/21 20:18 Atorvastatin Calcium 80 Mg Tablet PO Not Given BEDTIME RAFAELA Cefuroxime Axetil 250 mg 03/22/21 10:00 03/26/21 08:48 Cefuroxime Axetil 250 Mg Tablet PO 03/29/21 09:59 250 mg Q12H RAFAELA Administration Docusate Sodium 100 mg 03/23/21 13:23 03/25/21 18:43 Docusate Sodium 100 Mg Capsule PO 100 mg BID PRN Administration Constipation Ibuprofen 400 mg 03/22/21 10:56 03/25/21 16:19 Ibuprofen 400 Mg Tablet PO 400 mg RQ6H PRN Administration pain Lisinopril 20 mg 03/19/21 09:00 03/26/21 08:48 Lisinopril 20 Mg Tablet PO 20 mg DAILY RAFAELA Administration Protocol Magnesium Hydroxide 30 ml 03/21/21 09:05 Milk Of Magnesia 30 Ml Oral.Susp PO DAILY PRN Constipation Magnesium Hydroxide 30 ml 03/23/21 21:34 Milk Of Magnesia 30 Ml Oral.Susp PO DAILY PRN Constipation Nicotine Polacrilex 4 mg 03/23/21 21:34 Nicotine Polacrilex 2 Mg Gum BUCCAL Q2H PRN Nicotine Cravings Olanzapine 20 mg 03/18/21 23:45 03/25/21 20:17 Olanzapine 10 Mg Tablet PO 20 mg BEDTIME RAFAELA Administration Senna 7.5 ml 03/20/21 10:28 03/20/21 15:55 Senna [place] Extract Oral Syrup 15 Ml Syrup PO 7.5 ml ONCE PRN Administration Constipation Trazodone HCl 50 mg 03/18/21 23:45 03/25/21 20:17 Trazodone Hcl 50 Mg Tablet PO 50 mg BEDTIME RAFAELA Administration Allergies Allergies Allergy/AdvReac Type Severity Reaction Status Date / Time No Known Allergies Allergy Unverified 08/13/20 17:06 [No Known Allergies*] Assessment & Plan Assessment & Plan (1) Bipolar 1 disorder, manic, full remission: Status: Acute Code(s): F31.74 - Bipolar disorder, in full remission, most recent episode manic (2) Adjustment disorder with mixed disturbance of emotions and conduct in remission: Status: Acute Code(s): F43.25 - Adjustment disorder with mixed disturbance of emotions and conduct Assessment and Plan: Impression Pt is a 68 yo female with hx of Bipolar disorder, hx of trauma and etoh abuse (sober for 3 years) who presents following few days of decompensation and destructive behavior in face of psychosocial stresses. Pt seems to have been stable, without manic episodes and taking medications until this incident which reportedly lasted only 1-2 days. Pt's has chronic guilt over past behaviors which can intermittently become overwhelming; this recent brief bout of dysreg ulation seems to have been triggered by upsetting phone call with patients sister which historically exacerbates guilt. Patient's behaviors did get out of control. However, although she dissociated, destroyed furniture and had delusional thought that she was Declan Dayo, this episode does not seem to be a manic episode, but rather an overwhelmingly emotional response following exacerbation of her past trauma. Patient was reportedly at baseline prior to this, the episode was triggered by a specific event, brief and now seems to have fully resolved. Patient currently presents as calm, in behavioral control and with insight into illness. She says she feels her normal self, stable and safe and would like discharge home. Her daughter agrees that patient is stable and appropriate for discharge home. Patient is taking medications that are effective and well tolerated and she has good rapport with outpt providers. Rib Cloth Knitter communicated with Dr. Figureedo who agrees that patient has been stable on Olanzapine and does not recommend med changes. In addition to enjoying support from her daughters, patient will also now have a VNA whose first visit is tomorrow. Patient is not in imminent risk of self-harm or harm of others and does not meet criteria for involuntary commitment; her request for discharge is honored. DX: adjustment disorder with mixed disturbance of emotions and conduct, in remission Bipolar 1, severe, recurrent in remission (by hx) Provisional dx of PTSD, chronic PLAN: appropriate for discharge PATIENT IS NOT ON MORE THAN ONE SCHEDULED ANTIPSYCHOTIC MEDICATION Greater than 50% of the session was spent on counseling and/or coordination of care Reason for contiued inpatient stay Substantial Risk for: stable for discharge
== END 2021-03-26 11:00 | disposition home or self-care (01) | DRG 882 ==
LOC: HO.ED 03-23 14:30 → HO.PM5 03-23 21:25
PROVIDERS: Physician Assistant; Admitting Provider Psychiatry & Neurology Psychiatry; Emergency Provider Internal Medicine; Visit Provider Psychiatry & Neurology Psychiatry
DX: F43.25 Adjustment disorder with mixed disturbance of emotions and conduct (principal); N39.0 Urinary tract infection, site not specified; F31.62 Bipolar disorder, current episode mixed, moderate; F10.11 Alcohol abuse, in remission; Z20.822 Contact with and (suspected) exposure to COVID-19; Z79.899 Other long term (current) drug therapy
CPT/HCPCS: 36415; 80048; 80061; 80076; 80307; 81001; 81003; 83036; 85025; 87086; 87635; 93005; 99285

== ENCOUNTER 2021-10-08 15:43 | Emergency (ER) | payer MEDICARE, SELFPAY ==
[2021-10-08 16:06] VITALS: BP 158/67; BP 171/96; PULSE 56; PULSE 75; RESP 18; TEMP 36.4; O2SAT 96; O2SAT 98; BMI 21.4
--- NOTE | 2021-10-08 16:29 | ED_ITS ---
HPI - General Adult General Chief complaint: Psychiatric Symptoms Stated complaint: CRISIS Time Seen by Provider: 10/08/21 16:26 Source: patient Limitations: no limitations History of Present Illness HPI narrative: This is a 71-year-old female who was brought in by ambulance. The the patient's family stated that they believe she is having a manic episode and has been destroying things at her home. Patient herself complains that she think she drank too much wine last night. She is somewhat vague. She cannot say if she drank anything today. She complains of nausea. She denies depression. She denies any headache, chest pain, shortness of breath, abdominal pain. She cannot explain who called the ambulance. She states she lives at home alone and that no one checks on her daily. She is not aware of any neighbor's she may have disrupted Related Data Home Medications Medication Instructions Recorded Confirmed atorvastatin 80 mg tablet 1 tab PO BEDTIME 03/18/21 03/18/21 lisinopril 20 mg tablet 1 tab PO DAILY 03/18/21 03/18/21 olanzapine 20 mg tablet 1 tab PO BEDTIME 03/18/21 03/18/21 trazodone 50 mg tablet 1 tab PO BEDTIME 03/18/21 03/18/21 Allergies Allergy/AdvReac Type Severity Reaction Status Date / Time No Known Allergies Allergy Unverified 08/13/20 17:06 [No Known Allergies*] Review of Systems Review of Systems: Yes all other systems are reviewed and are negative Constitutional: Constitutional: Reports as per HPI Eyes: Eyes: Reports as per HPI and Reports no additional eye complaints ENT: Reports system reviewed and no additional complaints, except as documented, Reports as per HPI, Denies nasal congestion, Denies nasal discharge and Denies sore throat Cardiovascular: Cardiovascular: Reports as per HPI, Denies chest pain and Denies dyspnea Respiratory: Respiratory: Reports as per HPI, Denies cough and Denies dyspnea Gastrointestinal: Gastrointestinal: Reports as per HPI, Denies abdominal pain, Denies diarrhea, Reports nausea and Denies vomiting Genitourinary: Genitourinary: Reports as per HPI, Denies hematuria, Denies urinary frequency and Denies dysuria Musculoskeletal: Musculoskeletal: Reports no additional musculoskeletal complaints and Denies numbness Integumentary/Breasts: Skin/Breast: Reports as per HPI and Denies rash Neurologic: Reports as per HPI, Denies focal weakness, Denies numbness and Denies Sensory deficit (Neuro) Psychiatric: Psychiatric: Reports no additional psychiatric complaints and Reports as per HPI Endocrine: Endocrine: Reports no additional endocrine complaints and Reports as per HPI Hematologic/Lymphatic: Hematologic/Lymphatic: Reports no additional hematologic/lymphatic complaints, Reports as per HPI and Reports other (No peripheral edema) [facility] Past Medical History Medical History Bipolar 1 disorder Social History Social History Household Members: None Housing: House Do you presently have visiting nurse or other home services: No Alcohol intake: current Alcohol intake frequency: a few times a month Alcohol type: other Advance Directives: Yes Advance Directives on File: Yes Advance Directives Date on File: 03/19/21 service: No Sexual orientation: Straight/Heterosexual Physical Exam Vital Signs: Vital Signs: Last Vital Signs Temp 97.6 F 10/08/21 16:06 Pulse 56 10/08/21 16:06 Resp 18 10/08/21 16:06 BP 158/67 H 10/08/21 16:06 Pulse Ox 96 10/08/21 16:06 Body Mass Index 21.4 Const: Other: Patient does not appear manic, she is lying on her side, holding a vomit bag over her mouth, speaking normally, without any pressured speech or tangential speech. Patient actually appears more depressed than manic. No psychomotor agitation General: cooperative, no acute distress and alert Orientation/consciousness: oriented to person and patient oriented x3 HENMT: Head: Yes normal to inspection Eyes: General: appearance normal, both eyes and all related structures Eyelids: Yes eyelids normal Conjunctivae: conjunctivae normal Pupils: Equal, round and reactive pupils present Neck: Neck: Yes normal visual inspection and Yes supple Chest: Chest palpation & inspection: normal inspection of the chest Resp: Effort & Inspection: normal respiratory effort Auscultation: clear to auscultation bilaterally Cardio: Rate: regular rate Rhythm: regular rhythm Heart sounds: S1 normal heart sound present, S2 normal heart sound present, no gallops, no murmurs and no rubs GI: Palpation (GI): Soft to palpation, nontender and Other GI palpation findings present (Non-distended) Auscultation: normal bowel sounds Skin: General skin exam: no rashes or lesions noted Neuro: General: oriented to person, patient oriented x3, no focal motor deficits and CN's II-XI intact bilaterally Cranial nerves: Yes Equal, round and reactive pupils present Cognition (Neuro): normal cognition Motor exam (neuro): 5/5 motor strength present throughout Sensory Exam: No Sensory deficit (Neuro) Extrem: General: Yes normal to inspection and Yes no pedal edema Psych: Appearance: grossly normal Affect: normal affect Medical Decision Making MDM Narrative Medical decision making narrative: Upon re-evaluation at 17:39, the patient is sitting up eating a sandwich, feels better. She wants to go home. She is not suicidal. She admits alcohol use but does not want her daughter to know that she is here. She recalls being on the floor but cannot recall exactly what happened. She wants to go home by taxi. She has common cooperative, no evidence of any manic episode. Review of records reveals that she had had a similar presentation in February and was evaluated by Psychiatry, was found not to be a danger to herself, was found not to have any reason to be held against her will, and was discharged. The patient's alcohol level is about 0.14. Labs are otherwise unremarkable. If the patient is clinically sober she will be discharged home The patient ate voraciously, but still stated that she felt weak. Ambulation was assessed and the patient still required assistance. Patient has no medical indication for admission. I do not believe she needs a crisis evaluation. Patient is to be held in the emergency department overnight and re-evaluated for discharge home in the morning. Patient is being signed out to Dr. Anderson at change of shift at 21:00, who will re-evaluate the patient prior to discharge in the morning Lab Data Result diagrams: 10/08/21 16:49 10/08/21 16:49 Labs: Lab Results 10/08/21 10/08/21 10/08/21 Range/Units 16:49 16:49 16:49 WBC 6.3 (4.8-10.8) X10*3/uL RBC 4.46 (4.20-5.50) X10*6/uL Hgb 12.9 (12.0-16.0) g/dl Hct 38.7 (37.0-47.0) % MCV 86.8 (80.0-98.0) fL MCH 28.9 (27.0-33.0) pg MCHC 33.3 (31.0-35.0) g/dl RDW 12.9 (11.0-16.0) % Plt Count 277 (160-400) X10*3/uL MPV 8.9 L (9.4-12.3) fL Immature Gran % (Auto) 0.3 (0.0-0.4) % Neut % (Auto) 70.4 (45-73) % Lymph % (Auto) 21.1 (20-40) % [place] % (Auto) 6.2 (2-11) % Eos % (Auto) 1.4 (0-4) % Baso % (Auto) 0.6 (0-2) % Lymph # (Auto) 1.3 (1.2-4.9) X10*3/uL [place] # (Auto) 0.4 (0.1-1.2) X10*3/uL Eos # (Auto) 0.1 (0.0-0.4) X10*3/uL Baso # (Auto) 0.0 (0.0-0.2) X10*3/uL Abs Immat Gran (auto) 0.02 (0.00-0.03) X10*3/uL Absolute Neuts (auto) 4.4 (2.0-8.3) x10*3/uL Absolute Nucleated RBC 0.000 (0.0-0.012) X10*3/uL Nucleated RBC % (auto) 0.0 (0.0-0.2) /100WBC Sodium 130 L (135-145) mmol/L Potassium 4.0 (3.3-5.1) mmol/L Chloride 100 (96-108) mmol/L Carbon Dioxide 16 L (22-29) mmol/L Anion Gap 18 (12-20) BUN 9 (9-16) mg/dL Creatinine 0.62 (0.5-1.4) mg/dL Estim Creat Clear Calc 59.8 Estimated GFR > 60 Random Glucose 92 (60-115) mg/dL Calcium 8.8 (8.4-10.2) mg/dL Total Bilirubin 0.6 (0.0-1.0) mg/dL AST 32 H D (5-31) U/L ALT 33 H (0-31) U/L Alkaline Phosphatase 59 (39-117) U/L Total Protein 7.2 (6.5-8.0) g/dL Albumin 4.2 (3.5-5.0) g/dL Urine Color Urine Appearance Urine pH (5.0-8.0) Ur Specific [place] (1.005-1.025) Urine Protein (NEG-TRACE) MG/DL Urine Glucose (UA) (NEG) MG/DL Urine Ketones (NEG) MG/DL Urine Blood (NEG) Urine Nitrite (NEG) Ur Leukocyte Esterase (NEG) Urine Opiates Screen (Not Detect) Urine Fentanyl Screen (Not Detect) Ur Barbiturates Screen (Not Detect) Ur Phencyclidine Scrn (Not Detect) Ur Amphetamines Screen (Not Detect) U Benzodiazepines Scrn (Not Detect) Urine Cocaine Screen (Not Detect) U Marijuana (THC) Screen (Not Detect) Ethyl Alcohol 141 mg/dL 10/08/21 10/08/21 Range/Units 17:38 17:38 WBC (4.8-10.8) X10*3/uL RBC (4.20-5.50) X10*6/uL Hgb (12.0-16.0) g/dl Hct (37.0-47.0) % MCV (80.0-98.0) fL MCH (27.0-33.0) pg MCHC (31.0-35.0) g/dl RDW (11.0-16.0) % Plt Count (160-400) X10*3/uL MPV (9.4-12.3) fL Immature Gran % (Auto) (0.0-0.4) % Neut % (Auto) (45-73) % Lymph % (Auto) (20-40) % [place] % (Auto) (2-11) % Eos % (Auto) (0-4) % Baso % (Auto) (0-2) % Lymph # (Auto) (1.2-4.9) X10*3/uL [place] # (Auto) (0.1-1.2) X10*3/uL Eos # (Auto) (0.0-0.4) X10*3/uL Baso # (Auto) (0.0-0.2) X10*3/uL Abs Immat Gran (auto) (0.00-0.03) X10*3/uL Absolute Neuts (auto) (2.0-8.3) x10*3/uL Absolute Nucleated RBC (0.0-0.012) X10*3/uL Nucleated RBC % (auto) (0.0-0.2) /100WBC Sodium (135-145) mmol/L Potassium (3.3-5.1) mmol/L Chloride (96-108) mmol/L Carbon Dioxide (22-29) mmol/L Anion Gap (12-20) BUN (9-16) mg/dL Creatinine (0.5-1.4) mg/dL Estim Creat Clear Calc Estimated GFR Random Glucose (60-115) mg/dL Calcium (8.4-10.2) mg/dL Total Bilirubin (0.0-1.0) mg/dL AST (5-31) U/L ALT (0-31) U/L Alkaline Phosphatase (39-117) U/L Total Protein (6.5-8.0) g/dL Albumin (3.5-5.0) g/dL Urine Color STRAW Urine Appearance CLEAR Urine pH 6.0 (5.0-8.0) Ur Specific [place] 1.010 (1.005-1.025) Urine Protein NEG (NEG-TRACE) MG/DL Urine Glucose (UA) NEG (NEG) MG/DL Urine Ketones NEG (NEG) MG/DL Urine Blood NEG (NEG) Urine Nitrite NEG (NEG) Ur Leukocyte Esterase NEG (NEG) Urine Opiates Screen Not Detected (Not Detect) Urine Fentanyl Screen Not Detected (Not Detect) Ur Barbiturates Screen Not Detected (Not Detect) Ur Phencyclidine Scrn Not Detected (Not Detect) Ur Amphetamines Screen Not Detected (Not Detect) U Benzodiazepines Scrn Not Detected (Not Detect) Urine Cocaine Screen Not Detected (Not Detect) U Marijuana (THC) Screen Not Detected (Not Detect) Ethyl Alcohol mg/dL Discharge Plan Discharge Clinical Impression: Alcohol intoxication, Weakness Patient Disposition: Still a Patient Instructions: Alcohol Intoxication (ED), Weakness (ED) Additional Instructions: Follow-up with your primary care physician. Take yourmedications as usual. Avoid alcohol use. Return for any new or worsened symptoms. Prescriptions: No Action atorvastatin 80 mg tablet 1 tab PO BEDTIME RF: 0 trazodone 50 mg tablet 1 tab PO BEDTIME RF: 0 lisinopril 20 mg tablet 1 tab PO DAILY RF: 0 olanzapine 20 mg tablet 1 tab PO BEDTIME RF: 0
[2021-10-08 16:55] LABS: MANUAL DIFF FLAG NO
[2021-10-08 16:56] LABS: Basophils Percent Auto 0.6 % (0-2); Eosinophils Absolute Auto 0.1 X10*3/uL (0.0-0.4); Eosinophils Percent Auto 1.4 % (0-4); Hematocrit 38.7 % (37.0-47.0); Hemoglobin 12.9 g/dl (12.0-16.0); Imm Gran Abs Auto 0.02 X10*3/uL (0.00-0.03); Imm Gran Pct Auto 0.3 % (0.0-0.4); Lymphocytes Absolute Auto 1.3 X10*3/uL (1.2-4.9); Lymphocytes Percent Auto 21.1 % (20-40); Mean Corpuscular HGB Conc 33.3 g/dl (31.0-35.0); Mean Corpuscular Hemoglobin 28.9 pg (27.0-33.0); Mean Corpuscular Volume 86.8 fL (80.0-98.0); Mean Platelet Volume 8.9 fL (9.4-12.3); Monocytes Absolute Auto 0.4 X10*3/uL (0.1-1.2); Monocytes Percent Auto 6.2 % (2-11); Neutrophils Absolute Auto 4.4 x10*3/uL (2.0-8.3); Neutrophils Percent Auto 70.4 % (45-73); Platelet Count 277 X10*3/uL (160-400); Red Blood Count 4.46 X10*6/uL (4.20-5.50); Red Cell Distribution Width 12.9 % (11.0-16.0); White Blood Count 6.3 X10*3/uL (4.8-10.8)
[2021-10-08] MEDS: Ondansetron ODT 4 MG TAB.RAPDIS TRANSLINGU (17:08)
[2021-10-08 17:28] LABS: Alanine Aminotransferase 33 U/L (0-31); Albumin Level 4.2 g/dL (3.5-5.0); Alkaline Phosphatase 59 U/L (39-117); Anion Gap 18 (12-20); Aspartate Amino Transferase 32 U/L (5-31); Bilirubin Total 0.6 mg/dL (0.0-1.0); Blood Urea Nitrogen 9 mg/dL (9-16); Calcium 8.8 mg/dL (8.4-10.2); Carbon Dioxide 16 mmol/L (22-29); Chloride 100 mmol/L (96-108); Creatinine Clr Calc Pharmacy 59.8; Estimated Glomerular Filt Rate > 60; Glucose Random 92 mg/dL (60-115); Sodium 130 mmol/L (135-145); Total Protein 7.2 g/dL (6.5-8.0)
[2021-10-08 17:32] LABS: Ethanol 141 mg/dL
[2021-10-08 18:12] LABS: Appearance Urine CLEAR; Color Urine STRAW; Glucose Urine UA NEG (NEG); Leukocyte Esterase Urine NEG (NEG); Nitrite Urine NEG (NEG); Urine Blood NEG (NEG); Urine Ketones NEG (NEG); Urine Protein NEG (NEG-TRACE)
[2021-10-08 18:25] LABS: Amphetamine Screen Urine Not Detected (Not Detect); Barbiturates, Urine Not Detected (Not Detect); Benzodiazepines Screen Urine Not Detected (Not Detect); Cannabinoid Screen Urine Not Detected (Not Detect); Cocaine Screen Urine Not Detected (Not Detect); Fentanyl, urine Not Detected (Not Detect); Opiate Screen Urine Not Detected (Not Detect); Phencyclidine Screen Urine Not Detected (Not Detect)
[2021-10-09 01:54] VITALS: BP 106/59; PULSE 70; RESP 18; TEMP 36.1; O2SAT 96
== END 2021-10-09 05:57 | disposition home or self-care (01) ==
PROVIDERS: Emergency Provider Emergency Medicine; PCP Internal Medicine
DX: F10.129 Alcohol abuse with intoxication, unspecified (principal); Y90.6 Blood alcohol level of 120-199 mg/100 ml; R53.1 Weakness; M16.11 Unilateral primary osteoarthritis, right hip
CPT/HCPCS: 36415; 80053; 80307; 81003; 82077; 85025; 99283; 99285

== ENCOUNTER 2021-10-15 09:43 | Inpatient (IN) | payer MEDICARE, SELFPAY ==
--- NOTE | 2021-10-15 09:51 | ED.PSYCH ---
HPI - Psych General Chief Complaint: Psychiatric Symptoms Stated Complaint: ams Time Seen by Provider: 10/15/21 09:51 Source: patient and EMS Mode of arrival: EMS Limitations: other (poor cooperation) History of Present Illness MD complaint: other (delusions not taking medications) Onset (ago): unknown Duration: constant History of same: Yes Relieving factors: none Exacerbating factors: none Context: not taking psychiatric medications Associated psychiatric symptoms: delusions ( I am Declan ) Associated symptoms: denies other symptoms Treatments prior to arrival: placed on mental health hold Related Data Home Medications Medication Instructions Recorded Confirmed lisinopril 20 mg tablet 1 tab PO DAILY 03/18/21 10/15/21 trazodone 50 mg tablet 1 tab PO BEDTIME PRN 03/18/21 10/15/21 Allergies Allergy/AdvReac Type Severity Reaction Status Date / Time No Known Allergies Allergy Unverified 08/13/20 17:06 [No Known Allergies*] Review of Systems Review of Systems: ROS unable to be obtained due to poor cooperation [facility] Past Medical History Attestation statement: The following information was validated with the patient. Medical History Bipolar 1 disorder Social History Social History Household Members: None Housing: House Do you presently have visiting nurse or other home services: No Alcohol intake: current Alcohol intake frequency: a few times a month Alcohol type: other Patient Tobacco Use Status: Tobacco use Unknown Advance Directives: Yes Advance Directives on File: Yes Advance Directives Date on File: 03/19/21 Healthcare Proxy: Yes Guardian: No service: No Sexual orientation: Straight/Heterosexual Physical Exam Vital Signs: Vital Signs: Last Vital Signs Temp 98.4 F 10/15/21 10:25 Pulse 92 10/15/21 10:25 Resp 16 10/15/21 10:25 BP 124/78 10/15/21 10:25 Pulse Ox 96 10/15/21 10:25 Body Mass Index 20.9 Appearance: Alert. Oriented X2. No acute distress. Eyes: Pupils equal, round and reactive to light. ENT: Pharynx normal. Neck: Normal inspection. Neck supple. CVS: Normal heart rate and rhythm. Pulses normal. Respiratory: No respiratory distress. Breath sounds normal. Abdomen: Soft and non-tender. Skin: Skin warm and dry. Normal skin color. Normal skin turgor. Extremities: trace pitting lower extremity edema. No calf ttp Neuro: Oriented X 2. No motor deficit. No sensory deficit. CN2-12 intact Psych: calm but then refuses workup, I am declan. my daughter states I need to get admitted. Course Course Course Narrative: Physician observation started at 123pm Patient placed in physician observation because the patient needed more time for evaluation and to assess the need for inpatient psychiatry. At the time observation was started the patient's vitals were stable, patient is alert and oriented but slightly agitated, Neuro confused: nonfocal, CV RRR, Lungs clear signed out pending labs MDM - Psych MDM Narrative Medical decision making narrative: 71 yo female with bipolar off of her medications at this time will obtain labs once medically cleared [facility] consult - dispo per their input Lab Data Labs: Lab Results 10/15/21 Range/Units 14:01 COVID-19 ([facility]) Negative (Negative) COVID-19 Clin Com See Note Discharge Plan Discharge Clinical Impression: Bipolar disorder Qualifiers: Active/Remission status: remission status unspecified Qualified Code(s): F31.9 - Bipolar disorder, unspecified Patient Disposition: Admitted As Inpatient
[2021-10-15 10:25] VITALS: BP 124/78; BP 137/84; PULSE 90; PULSE 92; RESP 16; TEMP 36.9; O2SAT 96; O2SAT 97; BMI 20.9
--- NOTE | 2021-10-15 10:47 | PHA.MEDREC ---
Pharmacy Consult ? Medication Reconciliation Pharmacy has completed the medication reconciliation. Patient reports the only medication she takes regular is her lisinopril but does not think she should be on it. She stoped taking atorvastatin 80 mg at bedtime and olanzaping 20 mg at bedtime. Suzie Joe, PharmD
--- NOTE | 2021-10-15 11:00 | PC.NURSE ---
patients daughter [phone] states shes the HCP reported last admits meds helped patient look her best
--- NOTE | 2021-10-15 11:39 | PC.NURSE ---
patient continues t refuse covid swab
--- NOTE | 2021-10-15 13:52 | PC.NURSE ---
despite agreeing to [facility] c., provider patient has since declined to be swabbed for covid, and to complete labs
[2021-10-15 14:27] LABS: COVID-19 Test Negative (Negative)
--- NOTE | 2021-10-15 16:49 | PC.NURSE ---
Rn to Rn with Hazel Duncan.
--- NOTE | 2021-10-15 17:49 | PC.NURSE ---
pt has been ambulatory in department since this rn arrival at 3pm. uses walker mostly. steady on feet. frequent snacks. answers questions appropriately. awaits transfer to S1. Report has been given to RN on S1. Pt finally gave a urine but continues to refuse EKG and labs.
[2021-10-15 18:03] LABS: Amphetamine Screen Urine Not Detected (Not Detect); Barbiturates, Urine Not Detected (Not Detect); Benzodiazepines Screen Urine Not Detected (Not Detect); Cannabinoid Screen Urine Not Detected (Not Detect); Cocaine Screen Urine Not Detected (Not Detect); Fentanyl, urine Not Detected (Not Detect); Opiate Screen Urine Not Detected (Not Detect); Phencyclidine Screen Urine Not Detected (Not Detect)
[2021-10-15 18:17] VITALS: BP 125/71; PULSE 94; TEMP 36.2; O2SAT 94
[2021-10-15 18:44] LABS: Appearance Urine CLEAR; Color Urine YELLOW; Glucose Urine UA NEG (NEG); Leukocyte Esterase Urine NEG (NEG); Nitrite Urine NEG (NEG); Specific Gravity - Urine >= 1.030 (1.005-1.025); Urine Blood NEG (NEG); Urine Ketones NEG (NEG); Urine Protein NEG (NEG-TRACE)
[2021-10-15 20:00] VITALS: BP 115/76; PULSE 92; RESP 17; TEMP 36.8; O2SAT 96
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
--- NOTE | 2021-10-15 22:04 | PC.ADMIT ---
PT is 71 year old female admitted to this unit at 19:50. Ar[place] [facility] by WC with [employer]PRES[employer]ATIVE, 2 MHAs, and RN. PT alert to self only. PT called her daughter Damaris to let her know she was here. PT has had prior admissions to . PT presnting with delusional toughts, I am Declan and so are you. PT signed CV in ER before arriving to unit, once on unit PT signed a 3 day, all parties were notified of this. PT has PMH of multiple [facility] admissions, manic episodes, bipolar D/O. Daughter Sirena reports PT has not been sleeping, off medications and recently went missing. PT unable to answer some admission questions, denies Si/HI A/VH. PT feels safe on unit.
[2021-10-16] MEDS: Acetaminophen 325 MG TABLET 650 MG PO (04:20)
[2021-10-16] MEDS: hydrOXYzine HCL 25 MG TABLET PO ×2 (04:21→11:26)
--- NOTE | 2021-10-16 05:40 | PC.NURSE ---
At about 00:00 pt woke up and requested to have toast and coffee which pt got and was redirected to bed. pt then woke up about 3 hours later, she appeared agitated, anxious, nervous, weepy, loud and disruptive. When staff approached pt, pt held on to staff and let go of her body weight. Staff assisted her to a sitting position on floor. Pt then began to yell, curse, threw her walker severally while stating we are a team. Team work. I am Declan and you fucking have to listen to me. Pt requested some coffee and water and on both occasions, pt threw them on floor and appeared to be smiling. Pt later requested some tylenol for headache which was given to pt.
[2021-10-16 06:00] VITALS: BP 149/79; TEMP 36.9
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
[2021-10-16] MEDS: OLANZapine 10 MG VIAL IM (17:15)
--- NOTE | 2021-10-16 17:56 | PC.NURSE ---
Pt. eating calmly standing at the dresser in her room. This nurse standing outside room, because pt threw food and drinks given to her earlier in the shift. Suddenly, without obvious external provocation, pt disrobed to naked and began throwing food and belongings around room, yelling, cursing at Lang and Aditya. Pt began walking toward doorway naked and agitated. Staff stood in doorway redirecting. Pt refused medication for agitation and continued throwing items and threatening staff ( get the f--- out or you will be condemned like Declan on the cross and i will hammer you with my own fists . Security and hospitalist informed. Zyprexa 10mg IM administered (right gluteus) at 1715. Pt cries, paces around room. Pt refuses vital signs at 1730, but states, I'm better now. Pt asleep on bed at 1740, no signs of discomfort or distress. Daughter notified of incident and need for medical intervention. Daughter reports that disrobing is a common behavior for this pt when not taking prescribed medications. Daughter reports however long she told you she's been off her meds, its actually way longer than that. I've been trying to get her help from crisis, but they wouldn't help, I'm so glad she is there now.
--- NOTE | 2021-10-16 18:15 | PM.EVENT ---
Event Note Date of Service: 10/16/21 Event Note: Patient seen examined post medical restraint, at 6:15 pm Patient noted to have normal breath sounds, awake answering questions appropriately in no distress Offered no acute complaints.
[2021-10-16 19:51] VITALS: BP 141/77; PULSE 98; RESP 18; TEMP 36.3; O2SAT 96
[2021-10-16] MEDS: OLANZapine 5 MG TABLET PO (20:04)
[2021-10-17 06:00] VITALS: BP 129/74; PULSE 99; RESP 16; TEMP 36.6; O2SAT 95
[2021-10-17 08:42] VITALS: BP 129/74; PULSE 99
[2021-10-17] MEDS: lisinopriL 20 MG TABLET PO (08:42)
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
[2021-10-17 19:52] VITALS: BP 115/60; PULSE 102; RESP 18; TEMP 36.5; O2SAT 92
[2021-10-17] MEDS: OLANZapine 10 MG TABLET PO (20:33)
[2021-10-17] MEDS: Acetaminophen 325 MG TABLET 650 MG PO (21:56)
[2021-10-18] MEDS: traZODone HCL 50 MG TABLET PO ×3 (01:22→23:23)
[2021-10-18 06:00] VITALS: BP 90/62; PULSE 82; TEMP 36.2; O2SAT 95
[2021-10-18 09:21] VITALS: BP 90/60; PULSE 82
[2021-10-18] MEDS: lisinopriL 20 MG TABLET PO (09:21)
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
[2021-10-18] MEDS: OLANZapine 10 MG TABLET PO (22:58)
[2021-10-19] MEDS: OLANZapine ODT 10 MG TAB.RAPDIS TRANSLINGU (03:55)
[2021-10-19] MEDS: traZODone HCL 50 MG TABLET PO (03:55)
[2021-10-19 06:00] VITALS: RESP 18; TEMP 36.4; O2SAT 99
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
[2021-10-19 18:00] VITALS: PULSE 94; RESP 18; TEMP 36.2; O2SAT 95
[2021-10-20] MEDS: OLANZapine ODT 10 MG TAB.RAPDIS 15 MG TRANSLINGU ×2 (02:00→20:36)
[2021-10-20 06:00] VITALS: RESP 18; TEMP 36.9; O2SAT 96
[2021-10-20] MEDS: OLANZapine ODT 10 MG TAB.RAPDIS TRANSLINGU (08:05)
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
[2021-10-21 01:40] VITALS: BP 121/68; PULSE 76; RESP 18; O2SAT 96
--- NOTE | 2021-10-21 01:54 | PC.NURSE ---
At about 01:15am, patient Dena was observed holding side bar while partially awake. Staff offered to assist patient to bed which she declined and would not move. Just about when staff had stepped away, patient was observed lowering self to floor in a sitting position while holding unto side bar. Staff immediately ran to assist patient and unfortunately, patient had already reached the floor by the time staff got to her. Vitals taken immediately after P76, Bp 121/68 and O2 sat 96%. MD Byrd aware. It is important to note that prior to this incident, patient has been and is independent with ambulation on unit.
[2021-10-21 06:00] VITALS: BP 106/52; PULSE 96; RESP 16; O2SAT 96
[2021-10-21 07:00] VITALS: BMI 22.4
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
[2021-10-21 18:00] VITALS: BP 129/83; PULSE 102; RESP 16; TEMP 36.8; O2SAT 95
[2021-10-21] MEDS: OLANZapine ODT 10 MG TAB.RAPDIS 15 MG TRANSLINGU (22:40)
--- NOTE | 2021-10-22 02:27 | PC.NURSE ---
PT needing frequent redirection to go to bed to try to sleep. PT ringing call light repeatedly asking for help. PT is independent with ambulation and transfers, asking for help to put shoes on, ect. At 2:20 am PT continuously ringing call barillas so RN was standing outside the room and had to go in every few seconds to turn off call barillas. This nurse witnessed PT slide from bed to purposely sit on floor. VSS, no injuries, playground supervisor and MD notified. T 97, O2 97%RA, P 68, BP 144/74. PT keeps coming out of room, not listening, being loud.
--- NOTE | 2021-10-22 02:46 | PC.NURSE ---
PT offerred prn zyprexa, at 2:40am PT took from RN threw it on the floor and threw cup of water on this RN. PT refused zyprexa prn for agitation at this time.
--- NOTE | 2021-10-22 05:32 | PC.NURSE ---
PT reaching over desk at nurse station to knock things over after being told phones do not get turned on until 7am, redirected away
[2021-10-22 06:00] VITALS: BP 110/55; PULSE 98; RESP 18; TEMP 36.4; O2SAT 94
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
[2021-10-22 21:20] VITALS: PULSE 88; RESP 17; TEMP 36.7; O2SAT 94
--- NOTE | 2021-10-23 04:20 | PC.NURSE ---
PT asking for 'a chocolate chip cookie' this gag writer said I do not have a chocolate chip cookie and PT proceeded to tip over computer monitors and throw pens and pencils that she had reached for. PT said 'if I don't get a cookie I will destroy the place.' PT trying to rip glass out at nurse station. PT also took apart the paper trash can and was walking around with it, PT dumped out the trash onto the floor. Security called, PT talked to security and was acting very calm and sweet. PT needs constant redirection.
[2021-10-23] MEDS: OLANZapine ODT 10 MG TAB.RAPDIS TRANSLINGU ×2 (05:19→23:11)
[2021-10-23 09:20] VITALS: BP 136/74; PULSE 100; RESP 14; TEMP 37.2; O2SAT 95
[2021-10-23 09:22] VITALS: BP 136/74; PULSE 100
[2021-10-23] MEDS: lisinopriL 20 MG TABLET PO (09:22)
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
[2021-10-23 18:00] VITALS: BP 130/78; PULSE 103; RESP 18; TEMP 36.4; O2SAT 95
[2021-10-23] MEDS: OLANZapine ODT 10 MG TAB.RAPDIS 15 MG TRANSLINGU (20:08)
[2021-10-23] MEDS: LORazepam 1 MG TABLET PO (23:11)
--- NOTE | 2021-10-24 00:19 | PC.NURSE ---
At 22:50 PT became verbally and physically aggressive yelling and swearing, throwing items which she reached for over nurse station. PT took a piece off printer and threw it at staff. Security and RN detasseling crew supervisor called. notified, new order to give 1mg Ativan stat along with prn zyprexa 10mg. PT compliant and took meds po with security present. PT currently sleeping.
[2021-10-24 06:00] VITALS: BP 129/83; PULSE 93; TEMP 36.9; O2SAT 96
[2021-10-24 09:00] VITALS: BP 129/83; PULSE 93
[2021-10-24] MEDS: lisinopriL 20 MG TABLET PO (09:00)
[2021-10-24] MEDS: LORazepam 2 MG/ML VIAL 1 MG IM (10:44)
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
[2021-10-24 20:44] VITALS: PULSE 88; RESP 16; TEMP 36.8; O2SAT 95
[2021-10-24] MEDS: OLANZapine ODT 10 MG TAB.RAPDIS 15 MG TRANSLINGU (21:40)
[2021-10-25] MEDS: OLANZapine ODT 10 MG TAB.RAPDIS TRANSLINGU ×2 (05:52→08:28)
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
[2021-10-25 08:00] VITALS: BP 119/80; PULSE 93; TEMP 36.4; O2SAT 94
[2021-10-25 08:28] VITALS: BP 119/80; PULSE 93
[2021-10-25] MEDS: lisinopriL 20 MG TABLET PO (08:28)
[2021-10-25] MEDS: Acetaminophen 325 MG TABLET 650 MG PO (09:56)
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
[2021-10-25] MEDS: OLANZapine ODT 10 MG TAB.RAPDIS 15 MG TRANSLINGU (22:08)
[2021-10-26] MEDS: OLANZapine ODT 10 MG TAB.RAPDIS TRANSLINGU ×2 (03:23→08:21)
[2021-10-26 03:32] VITALS: BP 121/83; PULSE 95; RESP 18; TEMP 37.1; O2SAT 97
[2021-10-26 08:21] VITALS: BP 134/75; PULSE 85
[2021-10-26] MEDS: lisinopriL 20 MG TABLET PO (08:21)
[2021-10-26 10:49] VITALS: BP 134/75; PULSE 85; RESP 16; TEMP 36.6; O2SAT 94
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
[2021-10-26] MEDS: OLANZapine ODT 10 MG TAB.RAPDIS 15 MG TRANSLINGU (23:00)
--- NOTE | 2021-10-27 11:34 | P.PNPSI_ITS ---
Subjective Subjective Date of Service: 10/27/21 Reason For Visit: ams Subjective Notes: Conditional Voluntary Interim History: The nursing staff reported that she can be very verbally abusive and angry and later she behaves childish and helpless. Yesterday, she couldn't sleep well and she was agitated, she tried to grab the computer of the vest front presser and needed to use PRN Zyprexa PO. Today, she was calm and pleasant with me but later she was very angry and abus adarsh towards an RN when she tried to grab the food of another patient. I could discuss with the patient treatment options and she agreed to add Depakoted as a mood stabilizer. Mental Status Exam Mental Status Exam Patient Appearance: Well Grooomed Patient Orientation: Person Level of Consciousness: Awake Patient Behavior: Guarded, Suspicious, Aggressive and Avoidant Mood Description: Labile Affect Description: Constricted Patient Cognition Impaired: Yes Ability to Follow Directions: Fair Speech Pattern: Soft-Spoken Hallucinations: Auditory Delusions: Paranoid Ideation and Grandiose Thought Process: Illogical and Evasive Thought Content: positive for Disorganized Judgement: Poor Diagnostics Vital Signs (24Hr): BMI result Body Mass Index 22.4 Medications Medications Current Medications Acetaminophen (Acetaminophen 325 Mg Tablet) 650 mg PO Q6H PRN PRN Reason: Headache/Pain Mild Scale (1-3) Last Admin: 10/25/21 09:56 Dose: 650 mg Documented by: Al Hydroxide/Mg Hydroxide (Magnesium Hydrox/Alum Hydrox 30 Ml Oral.Susp) 30 ml PO Q6H PRN PRN Reason: Heartburn/Nausea Lisinopril (Lisinopril 20 Mg Tablet) 20 mg PO DAILY [facility]; Protocol Last Admin: 10/26/21 08:21 Dose: 20 mg Documented by: Lorazepam (Lorazepam 1 Mg Tablet) 1 mg PO DAILY@1900 PRN PRN Reason: agitation Magnesium Hydroxide (Milk Of Magnesia 30 Ml Oral.Susp) 30 ml PO DAILY PRN PRN Reason: Constipation Olanzapine (Olanzapine Odt 10 Mg Tab.Rapdis) 10 mg TRANSLINGU BID PRN PRN Reason: agitation and psychosis Last Admin: 10/26/21 08:21 Dose: 10 mg Documented by: Olanzapine (Olanzapine Odt 10 Mg Tab.Rapdis) 15 mg TRANSLINGU BEDTIME [facility] Last Admin: 10/26/21 23:00 Dose: 15 mg Documented by: Allergies Allergies Allergy/AdvReac Type Severity Reaction Status Date / Time No Known Allergies Allergy Unverified 08/13/20 17:06 [No Known Allergies*] Assessment & Plan Assessment & Plan (1) Bipolar 1 disorder: Status: Acute Code(s): F31.9 - Bipolar disorder, unspecified Assessment and Plan: Pt is a 71 yo female with hx of Bipolar disorder, hx of trauma and etoh abuse (sober for 3 years) who presents following few days of decompensation and dest ructive and disorganized behavior. She had stopped Zyprexa, stopped sleeping, became delusional and left her home and went to a hotel. Believes she is Declan. DX: Bipolar 1, severe, manic with psychosis Provisional dx of PTSD, chronic PLAN: - Tiitration of Zyprexa was continued up to 20 mg po qhs. - Add Depakote 250 mg po tid as a mood stabilizer. - filing for 7 and 8 if the patient continues being noncompliant ativan 1 mg PRN after dinner added, for agitation I spent minutes with the patient and/or on the patient floor today, greater than?50% of which was spent counseling/coordinating care. Reason for contiued inpatient stay Substantial Risk for: harm to others, inability to function, rapid decompensation and med/psych decompensation
[2021-10-27] MEDS: Divalproex Sodium 250 MG TABLET.DR PO ×2 (16:15→20:10)
[2021-10-27] MEDS: OLANZapine ODT 10 MG TAB.RAPDIS 20 MG TRANSLINGU (20:10)
[2021-10-27] MEDS: diphenhydrAMINE HCL 25 MG TABLET PO (20:10)
[2021-10-28 07:00] VITALS: BMI 23.5
[2021-10-28] MEDS: lisinopriL 20 MG TABLET PO (08:10)
[2021-10-28] MEDS: Divalproex Sodium 250 MG TABLET.DR PO (08:10)
[2021-10-28 08:26] VITALS: BP 121/71; PULSE 95; RESP 16; TEMP 36.4; O2SAT 93
[2021-10-28] MEDS: OLANZapine ODT 10 MG TAB.RAPDIS TRANSLINGU (09:26)
--- NOTE | 2021-10-28 16:32 | HO.PSYCHPN ---
Subjective Subjective Date of Service: 10/28/21 Reason For Visit: ams Subjective Notes: Conditional Voluntary Interim History: The nursing staff reported that the patient was agitated that she needed to be medicated a.m. with olanzapine since she was aggressive, destroying property and throwing her tray into the nursing station. On interview, the patient talked to me after she had a long nap and she states that she was doing fine. She looks confused but still with severe mood lability Mental Status Exam Mental Status Exam Patient Appearance: Well Grooomed Patient Orientation: Person Level of Consciousness: Awake Patient Behavior: Cooperative Mood Description: Labile Affect Description: Constricted Patient Cognition Impaired: Yes Ability to Follow Directions: Fair Speech Pattern: Clear Hallucinations: None Delusions: Not Present Thought Process: Distracted Thought Content: positive for Perseveration, positive for Loose Associations and positive for Thought Blocking Judgement: Fair Diagnostics Vital Signs (24Hr): Vital Signs - 24 hr 10/28/21 08:26 Temperature 97.5 F Pulse Rate 95 Respiratory Rate 16 Blood Pressure 121/71 Pulse Oximetry 93 BMI result Body Mass Index 23.5 Medications Medications Current Medications Acetaminophen (Acetaminophen 325 Mg Tablet) 650 mg PO Q6H PRN PRN Reason: Headache/Pain Mild Scale (1-3) Last Admin: 10/25/21 09:56 Dose: 650 mg Documented by: Al Hydroxide/Mg Hydroxide (Magnesium Hydrox/Alum Hydrox 30 Ml Oral.Susp) 30 ml PO Q6H PRN PRN Reason: Heartburn/Nausea Divalproex Sodium (Divalproex Sodium 250 Mg Tablet.Dr) 250 mg PO TID [facility] Last Admin: 10/28/21 08:10 Dose: 250 mg Documented by: Lisinopril (Lisinopril 20 Mg Tablet) 20 mg PO DAILY [facility]; Protocol Last Admin: 10/28/21 08:10 Dose: 20 mg Documented by: Lorazepam (Lorazepam 1 Mg Tablet) 1 mg PO DAILY@1900 PRN PRN Reason: agitation Magnesium Hydroxide (Milk Of Magnesia 30 Ml Oral.Susp) 30 ml PO DAILY PRN PRN Reason: Constipation Olanzapine (Olanzapine Odt 10 Mg Tab.Rapdis) 10 mg TRANSLINGU BID PRN PRN Reason: agitation and psychosis Last Admin: 10/28/21 09:26 Dose: 10 mg Documented by: Olanzapine (Olanzapine Odt 10 Mg Tab.Rapdis) 20 mg TRANSLINGU BEDTIME [facility] Last Admin: 10/27/21 20:10 Dose: 20 mg Documented by: Allergies Allergies Allergy/AdvReac Type Severity Reaction Status Date / Time No Known Allergies Allergy Unverified 08/13/20 17:06 [No Known Allergies*] Assessment & Plan Assessment & Plan (1) Bipolar 1 disorder: Status: Acute Code(s): F31.9 - Bipolar disorder, unspecified Assessment and Plan: Pt is a 71 yo female with hx of Bipolar disorder, hx of trauma and etoh abuse (sober for 3 years) who presents following few days of decompensation and destructive and disorganized behavior. She had stopped Zyprexa, stopped sleeping, became delusional and left her home and went to a hotel. Believes she is Declan. DX: Bipolar 1, severe, manic with psychosis Provisional dx of PTSD, chronic PLAN: - Tiitration of Zyprexa was continued up to 20 mg po qhs. - increase Depakote up to 500 mg po tid as a mood stabilizer. - filing for 7 and 8 if the patient continues being noncompliant ativan 1 mg PRN after dinner added, for agitation I spent minutes with the patient and/or on the patient floor today, greater than?50% of which was spent counseling/coordinating care. Reason for contiued inpatient stay Substantial Risk for: inability to function, rapid decompensation and med/psych decompensation
[2021-10-28] MEDS: OLANZapine ODT 10 MG TAB.RAPDIS 20 MG TRANSLINGU (20:02)
[2021-10-28] MEDS: Divalproex Sodium 500 MG TABLET.DR PO (20:06)
[2021-10-28 20:13] VITALS: BP 124/74; PULSE 98; RESP 16; TEMP 36.3; O2SAT 94
[2021-10-29] MEDS: OLANZapine ODT 10 MG TAB.RAPDIS TRANSLINGU (08:26)
[2021-10-29] MEDS: Divalproex Sodium 500 MG TABLET.DR PO ×2 (08:26→19:58)
--- NOTE | 2021-10-29 15:04 | HO.PSYCHPN ---
Subjective Subjective Date of Service: 10/29/21 Reason For Visit: ams Subjective Notes: Conditional Voluntary Interim History: The nursing staff reports that she takes medications with a lot of encouragement. Still she remains with labral mood with episodes of agitation and episodes of helplessness and childish behavior. On interview she complains of pain and she agreed to increase Depakote up to 500 mg p.o. t.i.d. Mental Status Exam Mental Status Exam Patient Appearance: Well Grooomed Patient Orientation: Person Level of Consciousness: Awake Patient Behavior: Cooperative Mood Description: Labile Affect Description: Constricted Patient Cognition Impaired: Yes Speech Pattern: Clear Hallucinations: Auditory Delusions: Paranoid Ideation Thought Process: Goal Oriented Judgement: Fair Diagnostics Vital Signs (24Hr): Vital Signs - 24 hr 10/28/21 20:13 Temperature 97.3 F Pulse Rate 98 Respiratory Rate 16 Blood Pressure 124/74 Pulse Oximetry 94 BMI result Body Mass Index 23.5 Medications Medications Current Medications Acetaminophen (Acetaminophen 325 Mg Tablet) 650 mg PO Q6H PRN PRN Reason: Headache/Pain Mild Scale (1-3) Last Admin: 10/25/21 09:56 Dose: 650 mg Documented by: Al Hydroxide/Mg Hydroxide (Magnesium Hydrox/Alum Hydrox 30 Ml Oral.Susp) 30 ml PO Q6H PRN PRN Reason: Heartburn/Nausea Divalproex Sodium (Divalproex Sodium 500 Mg Tablet.Dr) 500 mg PO TID [facility] Last Admin: 10/29/21 08:26 Dose: 500 mg Documented by: Lisinopril (Lisinopril 20 Mg Tablet) 20 mg PO DAILY [facility]; Protocol Last Admin: 10/29/21 09:32 Dose: Not Given Documented by: Lorazepam (Lorazepam 1 Mg Tablet) 1 mg PO DAILY@1900 PRN PRN Reason: agitation Magnesium Hydroxide (Milk Of Magnesia 30 Ml Oral.Susp) 30 ml PO DAILY PRN PRN Reason: Constipation Olanzapine (Olanzapine Odt 10 Mg Tab.Rapdis) 10 mg TRANSLINGU BID PRN PRN Reason: agitation and psychosis Last Admin: 10/29/21 08:26 Dose: 10 mg Documented by: Olanzapine (Olanzapine Odt 10 Mg Tab.Rapdis) 20 mg TRANSLINGU BEDTIME [facility] Last Admin: 10/28/21 20:02 Dose: 20 mg Documented by: Allergies Allergies Allergy/AdvReac Type Severity Reaction Status Date / Time No Known Allergies Allergy Unverified 08/13/20 17:06 [No Known Allergies*] Assessment & Plan Assessment & Plan (1) Bipolar 1 disorder: Status: Acute Code(s): F31.9 - Bipolar disorder, unspecified Assessment and Plan: Pt is a 71 yo female with hx of Bipolar disorder, hx of trauma and etoh abuse (sober for 3 years) who presents following few days of decompensation and destructive and disorganized behavior. She had stopped Zyprexa, stopped sleeping, became delusional and left her home and went to a hotel. Believes she is Declan. DX: Bipolar 1, severe, manic with psychosis Provisional dx of PTSD, chronic PLAN: - Tiitration of Zyprexa was continued up to 20 mg po qhs. - increase Depakote up to 500 mg po tid as a mood stabilizer. - filing for 7 and 8 if the patient continues being noncompliant ativan 1 mg PRN after dinner added, for agitation I spent minutes with the patient and/or on the patient floor today, greater than?50% of which was spent counseling/coordinating care. Reason for contiued inpatient stay Substantial Risk for: inability to function, rapid decompensation and med/psych decompensation
[2021-10-29 19:43] VITALS: BP 103/59; PULSE 85; RESP 16; TEMP 36.6; O2SAT 95
[2021-10-29] MEDS: OLANZapine ODT 10 MG TAB.RAPDIS 20 MG TRANSLINGU (19:57)
[2021-10-30 06:00] VITALS: BP 124/72; PULSE 80; RESP 18; TEMP 36.6; O2SAT 95
[2021-10-30 08:56] VITALS: BP 124/72; PULSE 80
[2021-10-30] MEDS: lisinopriL 20 MG TABLET PO (08:56)
[2021-10-30] MEDS: Divalproex Sodium 500 MG TABLET.DR PO ×3 (08:57→19:56)
--- NOTE | 2021-10-30 13:07 | PC.NURSE ---
Pt. scored a 13/30 on the MOCA. Therefore, pt. is outside normal limits for pt.'s age and education status. MD and RN have been notified of results.
--- NOTE | 2021-10-30 14:24 | HO.PSYCHPN ---
Subjective Subjective Date of Service: 10/30/21 Reason For Visit: ams Subjective Notes: Conditional Voluntary Medical Problems Affecting Mental Status: No Interim History: patient is slightly guarded. Reports that she is here and taking medications because of her daughter. Does not feel she needs them. Reports she keeps saying that she is Declan and everybody tells her she is not. Reports she has to take on other people's Sins. Denies feeling burdened around this. denies depression. Denies SI. Denied hallucinations, but as per staff is internally preoccupied at times. Sleep okay. Is taking olanzapine and Depakote orally with encouragement. Medication Compliance: Yes Side effects from medications: No Review of Systems Acute medical concerns: No Review of Systems Review of Systems Unremarkable No all other systems are reviewed and are negative, unobtainable due to endotracheal tube, Unobtainable due to mental condition, Unobtainable due to mental status or Other Mental Status Exam Mental Status Exam Patient Appearance: Well Grooomed Patient Orientation: Person Level of Consciousness: Awake Patient Behavior: Cooperative Mood Description: Suspicious Affect Description: Constricted Patient Cognition Impaired: Yes Ability to Follow Directions: Fair Speech Pattern: Clear Memory Description: Normal for Patient Delusions: Grandiose Diagnostics Vital Signs (24Hr): Vital Signs - 24 hr 10/29/21 19:43 10/30/21 06:00 10/30/21 08:56 Temperature 97.8 F 97.8 F Pulse Rate 85 80 80 Respiratory Rate 16 18 Blood Pressure 103/59 L 124/72 124/72 Pulse Oximetry 95 95 BMI result Body Mass Index 23.5 Medications Medications Current Medications Acetaminophen (Acetaminophen 325 Mg Tablet) 650 mg PO Q6H PRN PRN Reason: Headache/Pain Mild Scale (1-3) Last Admin: 10/25/21 09:56 Dose: 650 mg Documented by: Al Hydroxide/Mg Hydroxide (Magnesium Hydrox/Alum Hydrox 30 Ml Oral.Susp) 30 ml PO Q6H PRN PRN Reason: Heartburn/Nausea Divalproex Sodium (Divalproex Sodium 500 Mg Tablet.) 500 mg PO TID [facility] Last Admin: 10/30/21 08:57 Dose: 500 mg Documented by: Lisinopril (Lisinopril 20 Mg Tablet) 20 mg PO DAILY [facility]; Protocol Last Admin: 10/30/21 08:56 Dose: 20 mg Documented by: Magnesium Hydroxide (Milk Of Magnesia 30 Ml Oral.Susp) 30 ml PO DAILY PRN PRN Reason: Constipation Olanzapine (Olanzapine Odt 10 Mg Tab.Rapdis) 10 mg TRANSLINGU BID PRN PRN Reason: agitation and psychosis Last Admin: 10/29/21 08:26 Dose: 10 mg Documented by: Olanzapine (Olanzapine Odt 10 Mg Tab.Rapdis) 20 mg TRANSLINGU BEDTIME [facility] Last Admin: 10/29/21 19:57 Dose: 20 mg Documented by: Allergies Allergies Allergy/AdvReac Type Severity Reaction Status Date / Time No Known Allergies Allergy Unverified 08/13/20 17:06 [No Known Allergies*] Assessment & Plan Assessment & Plan (1) Bipolar 1 disorder: Status: Acute Code(s): F31.9 - Bipolar disorder, unspecified Assessment and Plan: Pt is a 71 yo female with hx of Bipolar disorder, hx of trauma and etoh abuse (sober for 3 years) who presents following few days of decompensation and destructive and disorganized behavior. She had stopped Zyprexa, stopped sleeping, became delusional and left her home and went to a hotel. Believes she is Declan. DX: Bipolar 1, severe, manic with psychosis Provisional dx of PTSD, chronic PLAN: - Tiitration of Zyprexa was continued up to 20 mg po qhs. - increase Depakote up to 500 mg po tid as a mood stabilizer. - filing for 7 and 8 if the patient continues being noncompliant ativan 1 mg PRN after dinner added, for agitation 10/30/2021: No changes to primary team treatment plan I spent minutes with the patient and/or on the patient floor today, greater than?50% of which was spent counseling/coordinating care. Reason for contiued inpatient stay Substantial Risk for: inability to function
[2021-10-30 19:41] VITALS: BP 110/60; PULSE 100; RESP 16; TEMP 36.1; O2SAT 95
[2021-10-30] MEDS: OLANZapine ODT 10 MG TAB.RAPDIS 20 MG TRANSLINGU (19:56)
--- NOTE | 2021-10-31 10:54 | P.PNPSI_ITS ---
Subjective Subjective Date of Service: 10/31/21 Reason For Visit: paranoid Subjective Notes: Pawan Order and Section 8 Medical Problems Affecting Mental Status: No Interim History: Sleep OK. Refusing vitals and oral Depakote today. Very irri table. In day area. Eating well. Reports she did not want to talk and wanted space. Did agree to vitals for BP meds- later agreed to same. Was very clear she did not want Depakote and disagreed with IM meds as per Pawan, but aware of same. No evidence of depression or SI. Medication Compliance: Intermittent (as per pawan for antipsychotics) Side effects from medications: No Attending Groups: Intermittent Review of Systems Acute medical concerns: No Review of Systems Review of Systems No Unobtainable due to mental condition Mental Status Exam Mental Status Exam Narrative: In Day area. Fair hygiene and dress. Eating well. Irritable and guarded. Limited engagement. Paranoid. No evidence of depression or SI. Insight and judgment limited Diagnostics Vital Signs (24Hr): Vital Signs - 24 hr 10/30/21 19:41 Temperature 97 F Pulse Rate 100 Respiratory Rate 16 Blood Pressure 110/60 Pulse Oximetry 95 BMI result Body Mass Index 23.5 Medications Medications Current Medications Acetaminophen (Acetaminophen 325 Mg Tablet) 650 mg PO Q6H PRN PRN Reason: Headache/Pain Mild Scale (1-3) Last Admin: 10/25/21 09:56 Dose: 650 mg Documented by: Al Hydroxide/Mg Hydroxide (Magnesium Hydrox/Alum Hydrox 30 Ml Oral.Susp) 30 ml PO Q6H PRN PRN Reason: Heartburn/Nausea Divalproex Sodium (Divalproex Sodium 500 Mg Tablet.) 500 mg PO TID [facility] Last Admin: 10/31/21 10:34 Dose: Not Given Documented by: Lisinopril (Lisinopril 20 Mg Tablet) 20 mg PO DAILY [facility]; Protocol Last Admin: 10/31/21 10:34 Dose: Not Given Documented by: Magnesium Hydroxide (Milk Of Magnesia 30 Ml Oral.Susp) 30 ml PO DAILY PRN PRN Reason: Constipation Olanzapine (Olanzapine Odt 10 Mg Tab.Rapdis) 10 mg TRANSLINGU BID PRN PRN Reason: agitation and psychosis Last Admin: 10/29/21 08:26 Dose: 10 mg Documented by: Olanzapine (Olanzapine Odt 10 Mg Tab.Rapdis) 20 mg TRANSLINGU BEDTIME [facility] Last Admin: 10/30/21 19:56 Dose: 20 mg Documented by: Allergies Allergies Allergy/AdvReac Type Severity Reaction Status Date / Time No Known Allergies Allergy Unverified 08/13/20 17:06 [No Known Allergies*] Assessment & Plan Assessment & Plan (1) Bipolar 1 disorder: Status: Acute Code(s): F31.9 - Bipolar disorder, unspecified Assessment and Plan: Pt is a 71 yo female with hx of Bipolar disorder, hx of trauma and etoh abuse (sober for 3 years) who presents following few days of decompensation and destructive and disorganized behavior. She had stopped Zyprexa, stopped sleeping, became delusional and left her home and went to a hotel. Believes she is Declan. DX: Bipolar 1, severe, manic with psychosis Provisional dx of PTSD, chronic PLAN: - Tiitration of Zyprexa was continued up to 20 mg po qhs. - increase Depakote up to 500 mg po tid as a mood stabilizer. - filing for 7 and 8 if the patient continues being noncompliant ativan 1 mg PRN after dinner added, for agitation 10/31/2021: No changes to primary team treatment plan I spent minutes with the patient and/or on the patient floor today, greater than?50% of which was spent counseling/coordinating care. Reason for contiued inpatient stay Substantial Risk for: inability to function and rapid decompensation
[2021-10-31] MEDS: OLANZapine ODT 10 MG TAB.RAPDIS 20 MG TRANSLINGU (21:57)
[2021-10-31] MEDS: Divalproex Sodium 500 MG TABLET.DR PO (21:57)
[2021-11-01] MEDS: Divalproex Sodium 500 MG TABLET.DR PO (08:18)
[2021-11-01] MEDS: lisinopriL 20 MG TABLET PO (08:18)
--- NOTE | 2021-11-01 12:52 | HO.PSYCHPN ---
Subjective Subjective Date of Service: 11/01/21 Reason For Visit: paranoid Subjective Notes: Conditional Voluntary Interim History: The nursing staff reported the patient has been compliant with treatment. She is irritable at times and she complains of chronic pain. The occupational therapist reported that the patient scored 14/30 on her [employer]. We discussed the plan with the social media marketing specialist Ho's she has has advanced dementia but it seems that she can not handle herself well in the community. On interview the patient denies new symptoms she wants to be discharged Mental Status Exam Mental Status Exam Patient Appearance: Well Grooomed Patient Orientation: Person Level of Consciousness: Awake Patient Behavior: Cooperative Mood Description: Labile Affect Description: Constricted Patient Cognition Impaired: Yes Ability to Follow Directions: Good Speech Pattern: Appropriate Hallucinations: None Delusions: Not Present Thought Process: Evasive and Slowed Thinking Thought Content: positive for Thought Blocking Judgement: Fair Diagnostics Vital Signs (24Hr): BMI result Body Mass Index 23.5 Medications Medications Current Medications Acetaminophen (Acetaminophen 325 Mg Tablet) 650 mg PO Q6H PRN PRN Reason: Headache/Pain Mild Scale (1-3) Last Admin: 10/25/21 09:56 Dose: 650 mg Documented by: Al Hydroxide/Mg Hydroxide (Magnesium Hydrox/Alum Hydrox 30 Ml Oral.Susp) 30 ml PO Q6H PRN PRN Reason: Heartburn/Nausea Divalproex Sodium (Divalproex Sodium 500 Mg Tablet.Dr) 500 mg PO TID [facility] Last Admin: 11/01/21 08:18 Dose: 500 mg Documented by: Lisinopril (Lisinopril 20 Mg Tablet) 20 mg PO DAILY [facility] [place]; Protocol Last Admin: 11/01/21 08:18 Dose: 20 mg Documented by: Magnesium Hydroxide (Milk Of Magnesia 30 Ml Oral.Susp) 30 ml PO DAILY PRN PRN Reason: Constipation Olanzapine (Olanzapine Odt 10 Mg Tab.Rapdis) 10 mg TRANSLINGU BID PRN PRN Reason: agitation and psychosis Last Admin: 10/29/21 08:26 Dose: 10 mg Documented by: Olanzapine (Olanzapine Odt 10 Mg Tab.Rapdis) 20 mg TRANSLINGU BEDTIME [facility] Last Admin: 10/31/21 21:57 Dose: 20 mg Documented by: Allergies Allergies Allergy/AdvReac Type Severity Reaction Status Date / Time No Known Allergies Allergy Unverified 08/13/20 17:06 [No Known Allergies*] Assessment & Plan Assessment & Plan (1) Bipolar 1 disorder: Status: Acute Code(s): F31.9 - Bipolar disorder, unspecified Assessment and Plan: Pt is a 71 yo female with hx of Bipolar disorder, hx of trauma and etoh abuse (sober for 3 years) who presents following few days of decompensation and destructive and disorganized behavior. She had stopped Zyprexa, stopped sleeping, became delusional and left her home and went to a hotel. Believes she is Declan. DX: Bipolar 1, severe, manic with psychosis Provisional dx of PTSD, chronic PLAN: - Tiitration of Zyprexa was continued up to 20 mg po qhs. - increase Depakote up to 500 mg po tid as a mood stabilizer. Total dose of Depakote 1500 mg a day - blood work with Depakote level, lipid profile, hemoglobin A1c and liver function test ordered for tomorrow morning. I spent minutes with the patient and/or on the patient floor today, greater than?50% of which was spent counseling/coordinating care. Reason for contiued inpatient stay Substantial Risk for: harm to self, harm to others, inability to function, rapid decompensation and med/psych decompensation
[2021-11-02 07:55] LABS: Estimated Average Glucose 105 mg/dL; Hemoglobin A1c % 5.3 %
[2021-11-02 08:09] LABS: Valproate 35.6 mcg/mL (50.0-100.0)
[2021-11-02 08:12] LABS: Alanine Aminotransferase 25 U/L (0-31); Albumin Level 3.5 g/dL (3.5-5.0); Alkaline Phosphatase 62 U/L (39-117); Aspartate Amino Transferase 13 U/L (5-31); Bilirubin Direct 0.2 mg/dL (0.0-0.5); Bilirubin Total 0.5 mg/dL (0.0-1.0); Cholesterol 224 mg/dL; HDL Cholesterol 53 mg/dL; LDL Cholesterol Calculated 152 mg/dl; Total Protein 6.1 g/dL (6.5-8.0); Triglycerides 97 mg/dL
--- NOTE | 2021-11-02 16:31 | P.PNPSI_ITS ---
Subjective Subjective Date of Service: 11/02/21 Reason For Visit: paranoid Subjective Notes: Conditional Voluntary Interim History: The nursing staff reports the patient slept well last night but yesterday she was awake in her room seclusive. She had a [place] she scored 13/30. On interview, the patient reported that she has and chills. We interview with the social and political studies professor and she was in agreement of getting other ancillary services for discharge Mental Status Exam Mental Status Exam Patient Appearance: Well Grooomed Patient Orientation: Person Level of Consciousness: Awake Patient Behavior: Cooperative Mood Description: Constricted Affect Description: Calm Patient Cognition Impaired: Yes Ability to Follow Directions: Good Speech Pattern: Appropriate Hallucinations: None Delusions: Paranoid Ideation Thought Process: Evasive and Slowed Thinking Judgement: Fair Diagnostics Vital Signs (24Hr): BMI result Body Mass Index 23.5 Labs Labs: Laboratory Results - last 48 hr 11/02/21 11/02/21 07:11 07:11 Estimat Average Glucose 105 Hemoglobin A1c % 5.3 Total Bilirubin 0.5 Direct Bilirubin 0.2 AST 13 D ALT 25 Alkaline Phosphatase 62 Total Protein 6.1 L Albumin 3.5 Triglycerides 97 Cholesterol 224 D LDL Cholesterol, Calc 152 HDL Cholesterol 53 D Valproic Acid 35.6 L Medications Medications Current Medications Acetaminophen (Acetaminophen 325 Mg Tablet) 650 mg PO Q6H PRN PRN Reason: Headache/Pain Mild Scale (1-3) Last Admin: 10/25/21 09:56 Dose: 650 mg Documented by: Al Hydroxide/Mg Hydroxide (Magnesium Hydrox/Alum Hydrox 30 Ml Oral.Susp) 30 ml PO Q6H PRN PRN Reason: Heartburn/Nausea Divalproex Sodium (Divalproex Sodium 500 Mg Tablet.Dr) 500 mg PO TID [facility] Last Admin: 11/02/21 10:51 Dose: Not Given Documented by: Lisinopril (Lisinopril 20 Mg Tablet) 20 mg PO DAILY [facility]; Protocol Last Admin: 11/02/21 10:51 Dose: Not Given Documented by: Magnesium Hydroxide (Milk Of Magnesia 30 Ml Oral.Susp) 30 ml PO DAILY PRN PRN Reason: Constipation Olanzapine (Olanzapine Odt 10 Mg Tab.Rapdis) 10 mg TRANSLINGU BID PRN PRN Reason: agitation and psychosis Last Admin: 10/29/21 08:26 Dose: 10 mg Documented by: Olanzapine (Olanzapine Odt 10 Mg Tab.Rapdis) 20 mg TRANSLINGU BEDTIME [facility] Last Admin: 11/01/21 23:44 Dose: Not Given Documented by: Allergies Allergies Allergy/AdvReac Type Severity Reaction Status Date / Time No Known Allergies Allergy Unverified 08/13/20 17:06 [No Known Allergies*] Assessment & Plan Assessment & Plan (1) Bipolar 1 disorder: Status: Acute Code(s): F31.9 - Bipolar disorder, unspecified Assessment and Plan: Pt is a 71 yo female with hx of Bipolar disorder, hx of trauma and etoh abuse (sober for 3 years) who presents following few days of decompensation and destructive and disorganized behavior. She had stopped Zyprexa, stopped sleeping, became delusional and left her home and went to a hotel. Believes she is Declan. DX: Bipolar 1, severe, manic with psychosis Provisional dx of PTSD, chronic PLAN: - Tiitration of Zyprexa was continued up to 20 mg po qhs. - increase Depakote up to 500 mg po b.i.d. and at night 1000 mg as a mood stabilizer. Total dose of Depakote to 1000 mg mg a day, her last Depakote level of today was 36.5, when she was receiving 1500 mg a day. - reassessment in 3 days with a new Depakote level I spent minutes with the patient and/or on the patient floor today, greater than?50% of which was spent counseling/coordinating care. Reason for contiued inpatient stay Substantial Risk for: harm to self, inability to function, rapid decompensation and med/psych decompensation
[2021-11-02 20:07] VITALS: BP 105/78; PULSE 113; TEMP 36.7; O2SAT 95
[2021-11-03 08:00] VITALS: BP 107/71; PULSE 85; TEMP 36.4; O2SAT 95
[2021-11-03 08:08] VITALS: BP 107/71; PULSE 85
[2021-11-03] MEDS: lisinopriL 20 MG TABLET PO (08:08)
[2021-11-03] MEDS: OLANZapine ODT 10 MG TAB.RAPDIS TRANSLINGU (08:08)
[2021-11-03] MEDS: Divalproex Sodium 500 MG TABLET.DR PO ×2 (08:08→13:07)
--- NOTE | 2021-11-03 15:08 | HO.PSYCHPN ---
Subjective Subjective Date of Service: 11/03/21 Reason For Visit: paranoid Subjective Notes: Section 8 Interim History: Pt with brighter affect, less guarded. Pt reports she is sleeping and eating well. She denies symptoms of depression or anxiety. She denies SI/HI. She denies VH/AH. Some residual paranoia, does not think medications are that helpful but is taking them. She is looking forward to be discharged soon. No behavioral concerns. Medication Compliance: Yes Side effects from medications: No Attending Groups: No Review of Systems Review of Systems Unremarkable No all other systems are reviewed and are negative, unobtainable due to endotracheal tube, Unobtainable due to mental condition, Unobtainable due to mental status or Other Mental Status Exam Mental Status Exam Patient Appearance: Well Grooomed Patient Orientation: Person, Place and Time Level of Consciousness: Awake and Appropriate Patient Behavior: Appropriate Mood Description: Calm Affect Description: Calm Speech Pattern: Appropriate and Spontaneous Speech Hallucinations: None Delusions: Not Present (no overt delusional content reported) Thought Process: Linear Diagnostics Vital Signs (24Hr): Vital Signs - 24 hr 11/02/21 20:07 11/03/21 08:00 11/03/21 08:08 Temperature 98.0 F 97.6 F Pulse Rate 113 H 85 85 Blood Pressure 105/78 107/71 107/71 Pulse Oximetry 95 95 BMI result Body Mass Index 23.5 Labs Labs: Laboratory Results - last 48 hr 11/02/21 11/02/21 07:11 07:11 Estimat Average Glucose 105 Hemoglobin A1c % 5.3 Total Bilirubin 0.5 Direct Bilirubin 0.2 AST 13 D ALT 25 Alkaline Phosphatase 62 Total Protein 6.1 L Albumin 3.5 Triglycerides 97 Cholesterol 224 D LDL Cholesterol, Calc 152 HDL Cholesterol 53 D Valproic Acid 35.6 L Medications Medications Current Medications Acetaminophen (Acetaminophen 325 Mg Tablet) 650 mg PO Q6H PRN PRN Reason: Headache/Pain Mild Scale (1-3) Last Admin: 10/25/21 09:56 Dose: 650 mg Documented by: Al Hydroxide/Mg Hydroxide (Magnesium Hydrox/Alum Hydrox 30 Ml Oral.Susp) 30 ml PO Q6H PRN PRN Reason: Heartburn/Nausea Divalproex Sodium (Divalproex Sodium 500 Mg Tablet.) 500 mg PO BID@0830,1330 [facility] Last Admin: 11/03/21 13:07 Dose: 500 mg Documented by: Divalproex Sodium (Divalproex Sodium 500 Mg Tablet.Dr) 1,000 mg PO BEDTIME [facility] Last Admin: 11/02/21 22:01 Dose: Not Given Documented by: Lisinopril (Lisinopril 20 Mg Tablet) 20 mg PO DAILY [facility]; Protocol Last Admin: 11/03/21 08:08 Dose: 20 mg Documented by: Magnesium Hydroxide (Milk Of Magnesia 30 Ml Oral.Susp) 30 ml PO DAILY PRN PRN Reason: Constipation Olanzapine (Olanzapine Odt 10 Mg Tab.Rapdis) 10 mg TRANSLINGU BID PRN PRN Reason: agitation and psychosis Last Admin: 11/03/21 08:08 Dose: 10 mg Documented by: Olanzapine (Olanzapine Odt 10 Mg Tab.Rapdis) 20 mg TRANSLINGU BEDTIME [facility] Last Admin: 11/02/21 22:01 Dose: Not Given Documented by: Allergies Allergies Allergy/AdvReac Type Severity Reaction Status Date / Time No Known Allergies Allergy Unverified 08/13/20 17:06 [No Known Allergies*] Assessment & Plan Assessment & Plan (1) Bipolar 1 disorder: Status: Acute Code(s): F31.9 - Bipolar disorder, unspecified Assessment and Plan: Pt is a 71 yo female with hx of Bipolar disorder, hx of trauma and etoh abuse (sober for 3 years) who presents following few days of decompensation and destructive and disorganized behavior. She had stopped Zyprexa, stopped sleeping, became delusional and left her home and went to a hotel. Believes she is Declan. DX: Bipolar 1, severe, manic with psychosis Provisional dx of PTSD, chronic PLAN: - Tiitration of Zyprexa was continued up to 20 mg po qhs. - increase Depakote up to 500 mg po b.i.d. and at night 1000 mg as a mood stabilizer. Total dose of Depakote to 1000 mg mg a day, her last Depakote level was 36.5, when she was receiving 1500 mg a day. - reassessment in 3 days with a new Depakote level I spent minutes with the patient and/or on the patient floor today, greater than?50% of which was spent counseling/coordinating care. Reason for contiued inpatient stay Substantial Risk for: inability to function
[2021-11-03] MEDS: Divalproex Sodium 500 MG TABLET.DR 1000 MG PO (20:43)
[2021-11-03] MEDS: OLANZapine ODT 10 MG TAB.RAPDIS 20 MG TRANSLINGU (20:44)
[2021-11-03 21:01] VITALS: BP 107/73; PULSE 91; RESP 17; TEMP 36.8; O2SAT 95
[2021-11-04 07:00] VITALS: BMI 22.9
[2021-11-04] MEDS: OLANZapine ODT 10 MG TAB.RAPDIS TRANSLINGU (08:30)
[2021-11-04 08:31] VITALS: BP 132/81; PULSE 93
[2021-11-04] MEDS: Divalproex Sodium 500 MG TABLET.DR PO ×2 (08:31→13:03)
[2021-11-04] MEDS: lisinopriL 20 MG TABLET PO (08:31)
[2021-11-04 08:39] VITALS: BP 132/81; PULSE 93; TEMP 36.2; O2SAT 95
[2021-11-04] MEDS: OLANZapine ODT 10 MG TAB.RAPDIS 20 MG TRANSLINGU (19:31)
[2021-11-04] MEDS: Divalproex Sodium 500 MG TABLET.DR 1000 MG PO (19:32)
[2021-11-04 19:58] VITALS: BP 128/66; PULSE 86; RESP 17; TEMP 36.6; O2SAT 94
[2021-11-05 06:00] VITALS: BP 105/62; PULSE 961; RESP 18; TEMP 35.9; O2SAT 95
[2021-11-05 07:39] LABS: Valproate 112.9 mcg/mL (50.0-100.0)
[2021-11-05 08:20] VITALS: BP 105/62; PULSE 77
[2021-11-05] MEDS: lisinopriL 20 MG TABLET PO (08:20)
--- NOTE | 2021-11-05 12:51 | PC.NURSE ---
Critical VPA of 112.[address] Harp and AM Jayleen held.
--- NOTE | 2021-11-05 13:58 | HO.PSYCHPN ---
Subjective Subjective Date of Service: 11/05/21 Reason For Visit: paranoid Subjective Notes: Conditional Voluntary Interim History: The nursing staff reports that the patient is in her room most of the time, compliant with treatment. Depakote level came back on 112.91. On interview, the patient was pleasant and cooperative isolative but more oriented. She agreed to have new blood work to recheck Depakote level Mental Status Exam Mental Status Exam Patient Appearance: Well Grooomed Patient Orientation: Person Level of Consciousness: Awake Patient Behavior: Guarded and Passive Mood Description: Constricted Affect Description: Calm Patient Cognition Impaired: No Ability to Follow Directions: Good Speech Pattern: Clear Hallucinations: None Delusions: Not Present Thought Process: Linear Thought Content: positive for Circumstantial Judgement: Fair Diagnostics Vital Signs (24Hr): Vital Signs - 24 hr 11/04/21 19:58 11/05/21 06:00 11/05/21 08:20 Temperature 98 F 96.6 F L Pulse Rate 86 961 H 77 Respiratory Rate 17 18 Blood Pressure 128/66 105/62 105/62 Pulse Oximetry 94 95 BMI result Body Mass Index 22.9 Labs Labs: Laboratory Results - last 48 hr 11/05/21 06:47 Valproic Acid 112.9 H* Medications Medications Current Medications Acetaminophen (Acetaminophen 325 Mg Tablet) 650 mg PO Q6H PRN PRN Reason: Headache/Pain Mild Scale (1-3) Last Admin: 10/25/21 09:56 Dose: 650 mg Documented by: Al Hydroxide/Mg Hydroxide (Magnesium Hydrox/Alum Hydrox 30 Ml Oral.Susp) 30 ml PO Q6H PRN PRN Reason: Heartburn/Nausea Divalproex Sodium (Divalproex Sodium 500 Mg Tablet.) 500 mg PO BID@0830,1330 [facility] Last Admin: 11/05/21 10:57 Dose: Not Given Documented by: Divalproex Sodium (Divalproex Sodium 500 Mg Tablet.) 1,[address] [facility] Last Admin: 11/04/21 19:32 Dose: 1,000 mg Documented by: Lisinopril (Lisinopril 20 Mg Tablet) [address] [facility]; Protocol Last Admin: 11/05/21 08:20 Dose: 20 mg Documented by: Magnesium Hydroxide (Milk Of Magnesia 30 Ml Oral.Susp) 30 ml PO DAILY PRN PRN Reason: Constipation Olanzapine (Olanzapine Odt 10 Mg Tab.Rapdis) 10 mg TRANSLINGU BID PRN PRN Reason: agitation and psychosis Last Admin: 11/04/21 08:30 Dose: 10 mg Documented by: Olanzapine (Olanzapine Odt 10 Mg Tab.Rapdis) 20 mg TRANSLINGU BEDTIME [facility] Last Admin: 11/04/21 19:31 Dose: 20 mg Documented by: Allergies Allergies Allergy/AdvReac Type Severity Reaction Status Date / Time No Known Allergies Allergy Unverified 08/13/20 17:06 [No Known Allergies*] Assessment & Plan Assessment & Plan (1) Bipolar 1 disorder: Status: Acute Code(s): F31.9 - Bipolar disorder, unspecified Assessment and Plan: Pt is a 71 yo female with hx of Bipolar disorder, hx of trauma and etoh abuse (sober for 3 years) who presents following few days of decompensation and destructive and disorganized behavior. She had stopped Zyprexa, stopped sleeping, became delusional and left her home and went to a hotel. Believes she is Declan. DX: Bipolar 1, severe, manic with psychosis Provisional dx of PTSD, chronic PLAN: - Tiitration of Zyprexa was continued up to 20 mg po qhs. - increase Depakote up to 500 mg po b.i.d. and at night 1000 mg as a mood stabilizer. Total dose of Depakote to 1000 mg mg a day, her last Depakote level was 36.5, when she was receiving 1500 mg a day. - reassessment tomorrow with a new Depakote level I spent minutes with the patient and/or on the patient floor today, greater than?50% of which was spent counseling/coordinating care. Reason for contiued inpatient stay Substantial Risk for: inability to function, rapid decompensation and med/psych decompensation
[2021-11-05] MEDS: Divalproex Sodium 500 MG TABLET.DR PO (14:33)
[2021-11-05 18:00] VITALS: BP 122/72; PULSE 86; RESP 16; TEMP 36.2; O2SAT 95
[2021-11-05] MEDS: OLANZapine ODT 10 MG TAB.RAPDIS 20 MG TRANSLINGU (20:36)
[2021-11-05] MEDS: Divalproex Sodium 500 MG TABLET.DR 1000 MG PO (20:37)
--- NOTE | 2021-11-06 09:16 | HO.PSYCHPN ---
Subjective Subjective Date of Service: 11/06/21 Reason For Visit: paranoid Subjective Notes: Conditional Voluntary Interim History: Pt has been mostly in her room. She reports feeling tired. She reports slept well. She reports eating well. She is taking medications as prescribed. No overt signs of psychosis. No behavioral concerns. She denies SI/HI. She denies any physical pain. Medication Compliance: Yes Side effects from medications: No Review of Systems Review of Systems Unremarkable No all other systems are reviewed and are negative, unobtainable due to endotracheal tube, Unobtainable due to mental condition, Unobtainable due to mental status or Other Diagnostics Vital Signs (24Hr): Vital Signs - 24 hr 11/07/21 18:00 Temperature 97.7 F Pulse Rate 67 Respiratory Rate 18 Blood Pressure 104/58 L Pulse Oximetry 95 BMI result Body Mass Index 22.9 Labs Labs: Laboratory Results - last 48 hr 11/06/21 06:36 Valproic Acid 111.0 H* Medications Medications Current Medications Acetaminophen (Acetaminophen 325 Mg Tablet) 650 mg PO Q6H PRN PRN Reason: Headache/Pain Mild Scale (1-3) Last Admin: 10/25/21 09:56 Dose: 650 mg Documented by: Al Hydroxide/Mg Hydroxide (Magnesium Hydrox/Alum Hydrox 30 Ml Oral.Susp) 30 ml PO Q6H PRN PRN Reason: Heartburn/Nausea Divalproex Sodium (Divalproex Sodium 500 Mg Tablet.) 1,000 mg PO BEDTIME [facility] Last Admin: 11/07/21 20:34 Dose: 1,000 mg Documented by: Divalproex Sodium (Divalproex Sodium 500 Mg Tablet.) 500 mg PO DAILY [facility] Lisinopril (Lisinopril 20 Mg Tablet) 20 mg PO DAILY [facility]; Protocol Last Admin: 11/07/21 08:41 Dose: 20 mg Documented by: Magnesium Hydroxide (Milk Of Magnesia 30 Ml Oral.Susp) 30 ml PO DAILY PRN PRN Reason: Constipation Olanzapine (Olanzapine Odt 10 Mg Tab.Rapdis) 10 mg TRANSLINGU BID PRN PRN Reason: agitation and psychosis Last Admin: 11/04/21 08:30 Dose: 10 mg Documented by: Olanzapine (Olanzapine Odt 10 Mg Tab.Rapdis) 20 mg TRANSLINGU BEDTIME [facility] Last Admin: 11/07/21 20:34 Dose: 20 mg Documented by: Allergies Allergies Allergy/AdvReac Type Severity Reaction Status Date / Time No Known Allergies Allergy Unverified 08/13/20 17:06 [No Known Allergies*] Assessment & Plan Assessment & Plan (1) Bipolar 1 disorder: Status: Acute Code(s): F31.9 - Bipolar disorder, unspecified Assessment and Plan: Pt is a 71 yo female with hx of Bipolar disorder, hx of trauma and etoh abuse (sober for 3 years) who presents following few days of decompensation and destructive and disorganized behavior. She had stopped Zyprexa, stopped sleeping, became delusional and left her home and went to a hotel. Believes she is Declan. DX: Bipolar 1, severe, manic with psychosis Provisional dx of PTSD, chronic PLAN: - Tiitration of Zyprexa was continued up to 20 mg po qhs. - increase Depakote up to 500 mg po b.i.d. and at night 1000 mg as a mood stabilizer. Total dose of Depakote to 1000 mg mg a day, her last Depakote level was 36.5, when she was receiving 1500 mg a day. - reassessment tomorrow with a new Depakote level 11/06- depakote level 110, no signs of toxicity, dose decrease to 500mg po daily and 1000mg po qhs. recheck levels on 11/08. no further changes to medications. I spent minutes with the patient and/or on the patient floor today, greater than?50% of which was spent counseling/coordinating care. Reason for contiued inpatient stay Substantial Risk for: inability to function
[2021-11-06] MEDS: Divalproex Sodium 500 MG TABLET.DR 1000 MG PO (20:08)
[2021-11-06] MEDS: OLANZapine ODT 10 MG TAB.RAPDIS 20 MG TRANSLINGU (20:08)
[2021-11-06 21:11] VITALS: BP 101/56; PULSE 77; RESP 18; TEMP 37.1; O2SAT 94
[2021-11-07] MEDS: lisinopriL 20 MG TABLET PO (08:41)
[2021-11-07] MEDS: Divalproex Sodium 500 MG TABLET.DR PO (08:41)
--- NOTE | 2021-11-07 12:36 | P.PNPSI_ITS ---
Subjective Subjective Date of Service: 11/07/21 Reason For Visit: paranoid Subjective Notes: Section 8 Interim History: Pt mostly in bed in the morning, more visible later in the day. Pt reports mood is okay She denies SI/HI. She reports eating and sleeping well, which it is confirmed by nursing. She denies VH/AH. NO overt delusional content reported. Medication Compliance: Yes Side effects from medications: No Attending Groups: No Review of Systems Review of Systems Unremarkable No all other systems are reviewed and are negative, unobtainable due to endotracheal tube, Unobtainable due to mental condition, Unobtainable due to mental status or Other Diagnostics Vital Signs (24Hr): Vital Signs - 24 hr 11/07/21 18:00 Temperature 97.7 F Pulse Rate 67 Respiratory Rate 18 Blood Pressure 104/58 L Pulse Oximetry 95 BMI result Body Mass Index 22.9 Labs Labs: Laboratory Results - last 48 hr 11/06/21 06:36 Valproic Acid 111.0 H* Medications Medications Current Medications Acetaminophen (Acetaminophen 325 Mg Tablet) 650 mg PO Q6H PRN PRN Reason: Headache/Pain Mild Scale (1-3) Last Admin: 10/25/21 09:56 Dose: 650 mg Documented by: Al Hydroxide/Mg Hydroxide (Magnesium Hydrox/Alum Hydrox 30 Ml Oral.Susp) 30 ml PO Q6H PRN PRN Reason: Heartburn/Nausea Divalproex Sodium (Divalproex Sodium 500 Mg Tablet.) 1,000 mg PO BEDTIME [facility] Last Admin: 11/07/21 20:34 Dose: 1,000 mg Documented by: Divalproex Sodium (Divalproex Sodium 500 Mg Tablet.) 500 mg PO DAILY [facility] Lisinopril (Lisinopril 20 Mg Tablet) 20 mg PO DAILY [facility]; Protocol Last Admin: 11/07/21 08:41 Dose: 20 mg Documented by: Magnesium Hydroxide (Milk Of Magnesia 30 Ml Oral.Susp) 30 ml PO DAILY PRN PRN Reason: Constipation Olanzapine (Olanzapine Odt 10 Mg Tab.Rapdis) 10 mg TRANSLINGU BID PRN PRN Reason: agitation and psychosis Last Admin: 11/04/21 08:30 Dose: 10 mg Documented by: Olanzapine (Olanzapine Odt 10 Mg Tab.Rapdis) 20 mg TRANSLINGU BEDTIME [facility] Last Admin: 11/07/21 20:34 Dose: 20 mg Documented by: Allergies Allergies Allergy/AdvReac Type Severity Reaction Status Date / Time No Known Allergies Allergy Unverified 08/13/20 17:06 [No Known Allergies*] Assessment & Plan Assessment & Plan (1) Bipolar 1 disorder: Status: Acute Code(s): F31.9 - Bipolar disorder, unspecified Assessment and Plan: Pt is a 71 yo female with hx of Bipolar disorder, hx of trauma and etoh abuse (sober for 3 years) who presents following few days of decompensation and destructive and disorganized behavior. She had stopped Zyprexa, stopped sleeping, became delusional and left her home and went to a hotel. Believes she is Declan. DX: Bipolar 1, severe, manic with psychosis Provisional dx of PTSD, chronic PLAN: - Tiitration of Zyprexa was continued up to 20 mg po qhs. - increase Depakote up to 500 mg po b.i.d. and at night 1000 mg as a mood stabilizer. Total dose of Depakote to 1000 mg mg a day, her last Depakote level was 36.5, when she was receiving 1500 mg a day. - reassessment tomorrow with a new Depakote level 11/06- depakote level 110, no signs of toxicity, dose decrease to 500mg po daily and 1000mg po qhs. recheck levels on 11/08. no further changes to medications. I spent minutes with the patient and/or on the patient floor today, greater than?50% of which was spent counseling/coordinating care. Reason for contiued inpatient stay Substantial Risk for: inability to function
[2021-11-07 18:00] VITALS: BP 104/58; PULSE 67; RESP 18; TEMP 36.5; O2SAT 95
[2021-11-07] MEDS: OLANZapine ODT 10 MG TAB.RAPDIS 20 MG TRANSLINGU (20:34)
[2021-11-07] MEDS: Divalproex Sodium 500 MG TABLET.DR 1000 MG PO (20:34)
[2021-11-08 06:00] VITALS: BP 132/79; PULSE 77; TEMP 35.9; O2SAT 95
[2021-11-08 06:48] LABS: Valproate 110.3 mcg/mL (50.0-100.0)
[2021-11-08 09:26] VITALS: BP 132/79; PULSE 77
[2021-11-08] MEDS: Divalproex Sodium 500 MG TABLET.DR PO (09:26)
[2021-11-08] MEDS: lisinopriL 20 MG TABLET PO (09:26)
--- NOTE | 2021-11-08 12:19 | PM.PSYDC ---
DS: Providers Provider Date of Service: 11/08/21 Date of admission: 10/15/21 20:14 Date of discharge: 11/08/21 Primary care physician: Chinyere Luna MD Consults: 10/16/21 12:03 Consult to Hospitalist Routine Consulting Provider: Hospitalist Reason For Exam: Geriatric psychiatry Aadmission 10/16/21 17:27 Consult to Hospitalist Stat Consulting Provider: Hospitalist Reason For Exam: Medication Restraint follow up. Attending physician on discharge: Eugene Harp DS: Diagnosis Discharge Diagnosis (1) Bipolar 1 disorder: Status: Acute DS: Medications Discharge Medications Home Medications: Home Medications Medication Instructions Recorded Confirmed lisinopril 20 mg tablet 1 tab PO DAILY 03/18/21 10/15/21 trazodone 50 mg tablet 1 tab PO BEDTIME PRN 03/18/21 10/15/21 Mental Status Exam Mental Status Exam Patient Appearance: Well Grooomed Patient Orientation: Person and Situation Level of Consciousness: Awake and Appropriate Patient Behavior: Cooperative Mood Description: Calm Affect Description: Constricted Patient Cognition Impaired: No Ability to Follow Directions: Good Speech Pattern: Clear Hallucinations: None Delusions: Not Present Thought Process: Linear Thought Content: positive for Circumstantial Judgement: Fair Data Data Completed and Pending Completed studies during hospitalization [Text1]: 11/02/21 11/02/21 11/05/21 07:11 07:11 06:47 Estimat Average Glucose 105 Hemoglobin A1c % 5.3 Total Bilirubin 0.5 Direct Bilirubin 0.2 AST 13 D ALT 25 Alkaline Phosphatase 62 Total Protein 6.1 L Albumin 3.5 Triglycerides 97 Cholesterol 224 D LDL Cholesterol, Calc 152 HDL Cholesterol 53 D Valproic Acid 35.6 L 112.9 H* 11/06/21 11/08/21 06:36 06:02 Estimat Average Glucose Hemoglobin A1c % Total Bilirubin Direct Bilirubin AST ALT Alkaline Phosphatase Total Protein Albumin Triglycerides Cholesterol LDL Cholesterol, Calc HDL Cholesterol Valproic Acid 111.0 H* 110.3 H* DS: Summary Hospital Course Hospital Course: The patient carries a diagnosis of bipolar disorder type 1, she was admitted for exacerbation of her symptoms with psychosis and a new city in the context of noncompliance. Please see the HPI of the admission note for more details. On admission, she was restarted on Zyprexa sings historically it has helped her. He was titrated slowly up to 20 mg p.o. q.h.s. with improvement of psychosis but not mood lability. She had periods of being extremely angry with staff and peers of being compliant, pleasant and sometimes helpless. Since she has responded to Depakote in the past, she agreed to restart Depakote. Head Depakote was titrated slowly up to 1500 mg a day with a subtherapeutic level. We titrated up to 2000 mg but unfortunately her Depakote level was over 100 so we have to go back to 1500 mg a day. The patient's mood improved, her psychotic symptoms improved and she was able to contract for safety, ready to go for discharge back to her home with ancillary services. Status at Discharge Cognitive/behavioral status at discharge: At baseline Functional status at discharge: independent ambulation Overall status at discharge: patient is back to baseline Time Spent with Patient Time attestation: Total time spent providing and/or coordinating discharge services: Time spent: Less than 30 minutes Discharge Plan Discharge Patient Disposition: Home, Self-Care Discharge Diagnosis: Bipolar disorder type 1 most recent episode manic with psychotic symptoms Referrals: Aparna Paez [Other] - 11/11/21 9:30 am (Your next therapy appointment is scheduled for 11/11/21 telehealth at 9:45-10:30am with Aparna.) [facility] [Other] - 11/22/21 2:00 pm (Referral for [facility] home care was placed and your assigned manager of case management's name is Paige. She will provide home visit for assessment for services on 11/22/21 at 2pm. ) Ana BUCHANAN [Other] - 11/09/21 ([facility] for medication management, RN, and Occupational therapy. To begin 11/09/21 in the morning. [facility] to contact you and come to your home for visit and assessment.) Liza Carrillo [Other] - 12/23/21 9:20 am (Your next appointment with Liza is 12/23/20 at 9:20am. This is telehealth appointment. ) Chinyere Luna MD [Primary Care Provider] - 1 Week Discharge Medications: New divalproex 500 mg Tablet,Delayed Release (Dr/Ec) 500 mg PO DAILY 30 Days Qty: 30 RF: 0 divalproex 500 mg Tablet,Delayed Release (Dr/Ec) 1,000 mg PO BEDTIME 30 Days Qty: 60 RF: 0 olanzapine 20 mg tablet 20 mg PO BEDTIME Qty: 30 RF: 0 Continued trazodone 50 mg tablet 1 tab PO BEDTIME PRN (Reason: Insomnia) 30 Days Qty: 30 RF: 0 lisinopril 20 mg tablet 1 tab PO DAILY 30 Days Qty: 30 RF: 0 Discharge Orders: Discharge Order (Routine); Ordered 11/08/21 Ordered By: Eugene Harp Diet: advance to usual diet Activity on Discharge: As tolerated Stand Alone Forms: Patient Portal Discharge page, Community Support Care Plan Goals: Care plan goals achieved in this an admission Health Concerns: Continue treatment will by PCP as an outpatient Plan of Treatment: Medication management but regular prescriber. [facility] another ancillary services please refer to social welfare administrator plan Assessment: Elderly female with a long history of bipolar disorder readmitted for exacerbation of walter and psychosis in the context of noncompliance. She was restarted on Zyprexa titrated up to 20 mg p.o. q.h.s. with for improvement of psychosis but still with mood lability so we had to at Depakote titrated up to 1500 mg a day the patient's mood improved and she is ready for discharge
== END 2021-11-08 14:10 | disposition home or self-care (01) | DRG 885 ==
LOC: HO.ED 20:10 → HO.PGERI 20:15
PROVIDERS: Social Worker; Admitting Provider Registered Nurse; Emergency Provider Emergency Medicine; PCP Internal Medicine; Visit Provider Psychiatry & Neurology Psychiatry
DX: F31.2 Bipolar disorder, current episode manic severe with psychotic features (principal); F10.11 Alcohol abuse, in remission; Z20.822 Contact with and (suspected) exposure to COVID-19; F43.12 Post-traumatic stress disorder, chronic; Z91.14 Patient's other noncompliance with medication regimen; Z79.899 Other long term (current) drug therapy
CPT/HCPCS: 36415; 80061; 80076; 80164; 80307; 81003; 83036; 87635; 97161; 97162; 99285; J2060; Q0163

== ENCOUNTER 2021-11-17 12:03 | Inpatient (IN) | payer MEDICARE, SELFPAY ==
--- NOTE | ~2021-11-17 | XR_ITS ---
EXAMINATION: XR CHEST CLINICAL INFORMATION: Lethargy COMPARISON: None TECHNIQUE: 2 views of the chest were obtained. FINDINGS: Trace blunting of both costophrenic angles posteriorly suggestive of minor pleural fluid. There is a focal approximately 13 mm irregular density question anteriorly on the lateral projection. Otherwise no significant abnormality is noted involving the heart, lungs, mediastinum, bony thorax or soft tissues. XR/XR chest 2V IMPRESSION: 13 mm irregular lesion question as above. Recommend elective CT for further assessment. Trace nonspecific pleural effusions both bases.
[2021-11-17 12:07] VITALS: BP 130/88; PULSE 88; RESP 14; TEMP 36.7; O2SAT 95; BMI 23.1
--- NOTE | 2021-11-17 12:17 | ECG_ITS ---
Test Reason : WEAKNESS Blood Pressure : / mmHG Vent. Rate : 089 BPM Atrial Rate : 089 BPM P-R Int : 120 ms QRS Dur : 072 ms QT Int : 488 ms P-R-T Axes : 083 042 084 degrees QTc Int : 593 ms Artifact in tracing likely Normal sinus rhythm Nonspecific T wave abnormality Abnormal ECG When compared with ECG of 20-MAR-2021 09:20, Nonspecific ST and T wave abnormality now present Referred By: Toni Self Electronically Signed By:MIGUEL CRAMER
--- NOTE | 2021-11-17 12:19 | ED.GENADULT ---
HPI - General Adult General Chief complaint: General Medical Stated complaint: LETHARGY FROM DEPAKOTE PER EMS Time Seen by Provider: 11/17/21 12:07 Source: patient and EMS History of Present Illness HPI narrative: Per patient and EMS, she has been getting more lethargic over the past 7 days. She has a history of bipolar disorder and recently was placed on a higher dose of Depakote. 1500 mg daily starting approximately 1 month ago. She denies any other symptoms other than feeling very tired and generally weak. No recent fevers or chills. No shortness of breath. No nausea vomiting diarrhea. She states she has been vaccinated against COVID. No headache No focal weakness No history of diabetes or thyroid disorder Related Data Previous Rx's Medication Instructions Recorded divalproex 500 mg tablet,delayed 1,000 mg PO BEDTIME 30 Days #60 tab 11/08/21 release divalproex 500 mg tablet,delayed 500 mg PO DAILY 30 Days #30 tab 11/08/21 release lisinopril 20 mg tablet 1 tab PO DAILY 30 Days #30 tab 11/08/21 olanzapine 20 mg tablet 20 mg PO BEDTIME #30 tab 11/08/21 trazodone 50 mg tablet 1 tab PO BEDTIME PRN 30 Days #30 11/08/21 tab Allergies Allergy/AdvReac Type Severity Reaction Status Date / Time No Known Allergies Allergy Unverified 08/13/20 17:06 [No Known Allergies*] Review of Systems Constitutional: Comments: General malaise without fevers chills or headaches Cardiovascular: Comments: No chest pain Respiratory: Comments: No shortness of breath Gastrointestinal: Comments: No nausea vomiting diarrhea constipation or abdominal pain Musculoskeletal: Comments: No extremity pain Integumentary/Breasts: Comments: No rash Neurologic: Comments: Generalized weakness without focal weakness Psychiatric: Comments: History of bipolar disorder with recent ER visit in September [facility] Past Medical History Medical History (Updated 11/17/21 @ 16:12 by Toni Self MD) Bipolar 1 disorder Social History Social History Household Members: None Housing: Other Housing Other:: triler Do you presently have visiting nurse or other home services: No Alcohol intake: current Alcohol intake frequency: a few times a month Alcohol type: other Patient Tobacco Use Status: Never used Tobacco e-Cigarette/Vaping Use: Never Used Second Hand Smoke Exposure: No Advance Directives: Yes Advance Directives on File: Yes Advance Directives Date on File: 03/19/21 service: No Sexual orientation: Straight/Heterosexual Physical Exam Vital Signs: Vital Signs: Last Vital Signs Temp 98.1 F 11/17/21 12:07 Pulse 88 11/17/21 12:07 Resp 14 11/17/21 12:07 BP 130/88 11/17/21 12:07 Pulse Ox 95 11/17/21 12:07 BMI result Body Mass Index 23.1 Const: Other: Patient appears drowsy but is awake and able to hold a full conversation. No acute distress. She is comfortable on the stretcher. Cooperative. HENMT: Other: Normocephalic atraumatic Eyes: Other: Pupils equal round reactive to light. Extraocular muscles intact without nystagmus Neck: Other: No meningismus Resp: Other: Clear and equal bilaterally without wheezes rales or rhonchi Cardio: Other: Regular rate and rhythm without murmurs rubs or gallops GI: Other: Flat soft nontender nondistended normoactive bowel sounds Skin: Other: Warm pink and dry without rash Neuro: Other: No focal neural deficit Extrem: Other: No injuries noted Course Course Course Narrative: Patient with general malaise and increased somnolence. Valproic acid toxicity Metabolic encephalopathy No evidence of sepsis Electrolyte imbalance Title failure Hypothyroidism 4:09 p.m.. Workup shows a valproic acid level of 131. Remainder of labs are unremarkable. Reassessment patient show she is still hemodynamically stable and awake and able to hold a conversation without respiratory compromise. But she is still too weak and ataxic to sit up on her own let alone ambulate. Will hospitalize for valproic acid toxicity. Medical Decision Making Lab Data Result diagrams: 11/17/21 13:14 11/17/21 13:14 Labs: Lab Results 11/17/21 11/17/21 11/17/21 Range/Units 13:14 13:14 13:14 WBC 9.2 (4.8-10.8) X10*3/uL RBC 4.90 (4.20-5.50) X10*6/uL Hgb 14.3 (12.0-16.0) g/dl Hct 43.6 (37.0-47.0) % MCV 89.0 (80.0-98.0) fL MCH 29.2 (27.0-33.0) pg MCHC 32.8 (31.0-35.0) g/dl RDW 13.2 (11.0-16.0) % Plt Count 142 L D (160-400) X10*3/uL MPV 9.1 L (9.4-12.3) fL Immature Gran % (Auto) 0.4 (0.0-0.4) % Neut % (Auto) 74.7 H (45-73) % Lymph % (Auto) 11.8 L (20-40) % [place] % (Auto) 11.5 H (2-11) % Eos % (Auto) 1.5 (0-4) % Baso % (Auto) 0.1 (0-2) % Lymph # (Auto) 1.1 L (1.2-4.9) X10*3/uL [place] # (Auto) 1.1 (0.1-1.2) X10*3/uL Eos # (Auto) 0.1 (0.0-0.4) X10*3/uL Baso # (Auto) 0.0 (0.0-0.2) X10*3/uL Abs Immat Gran (auto) 0.04 H (0.00-0.03) X10*3/uL Absolute Neuts (auto) 6.9 (2.0-8.3) x10*3/uL Absolute Nucleated RBC 0.000 (0.0-0.012) X10*3/uL Nucleated RBC % (auto) 0.0 (0.0-0.2) /100WBC Sodium 144 (135-145) mmol/L Potassium 3.9 (3.3-5.1) mmol/L Chloride 108 (96-108) mmol/L Carbon Dioxide 28 (22-29) mmol/L Anion Gap 12 (12-20) BUN 24 H (9-16) mg/dL Creatinine 0.73 (0.5-1.4) mg/dL Estim Creat Clear Calc 53.3 Estimated GFR > 60 Random Glucose 90 (60-115) mg/dL Lactic Acid 0.9 (0.5-2.0) mmol/L Calcium 8.8 (8.4-10.2) mg/dL Total Bilirubin 0.4 (0.0-1.0) mg/dL AST 16 (5-31) U/L ALT 15 (0-31) U/L Alkaline Phosphatase 65 (39-117) U/L Ammonia (13-55) umol/L Total Protein 6.6 (6.5-8.0) g/dL Albumin 3.7 (3.5-5.0) g/dL TSH (0.32-4.0) uIU/mL Valproic Acid 131.8 H* (50.0-100.0) mcg/mL Ethyl Alcohol mg/dL COVID-19 ([facility]) (Negative) COVID-19 Clin Com 11/17/21 11/17/21 11/17/21 Range/Units 13:14 13:14 13:14 WBC (4.8-10.8) X10*3/uL RBC (4.20-5.50) X10*6/uL Hgb (12.0-16.0) g/dl Hct (37.0-47.0) % MCV (80.0-98.0) fL MCH (27.0-33.0) pg MCHC (31.0-35.0) g/dl RDW (11.0-16.0) % Plt Count (160-400) X10*3/uL MPV (9.4-12.3) fL Immature Gran % (Auto) (0.0-0.4) % Neut % (Auto) (45-73) % Lymph % (Auto) (20-40) % [place] % (Auto) (2-11) % Eos % (Auto) (0-4) % Baso % (Auto) (0-2) % Lymph # (Auto) (1.2-4.9) X10*3/uL [place] # (Auto) (0.1-1.2) X10*3/uL Eos # (Auto) (0.0-0.4) X10*3/uL Baso # (Auto) (0.0-0.2) X10*3/uL Abs Immat Gran (auto) (0.00-0.03) X10*3/uL Absolute Neuts (auto) (2.0-8.3) x10*3/uL Absolute Nucleated RBC (0.0-0.012) X10*3/uL Nucleated RBC % (auto) (0.0-0.2) /100WBC Sodium (135-145) mmol/L Potassium (3.3-5.1) mmol/L Chloride (96-108) mmol/L Carbon Dioxide (22-29) mmol/L Anion Gap (12-20) BUN (9-16) mg/dL Creatinine (0.5-1.4) mg/dL Estim Creat Clear Calc Estimated GFR Random Glucose (60-115) mg/dL Lactic Acid (0.5-2.0) mmol/L Calcium (8.4-10.2) mg/dL Total Bilirubin (0.0-1.0) mg/dL AST (5-31) U/L ALT (0-31) U/L Alkaline Phosphatase (39-117) U/L Ammonia 25 (13-55) umol/L Total Protein (6.5-8.0) g/dL Albumin (3.5-5.0) g/dL TSH 2.28 (0.32-4.0) uIU/mL Valproic Acid (50.0-100.0) mcg/mL Ethyl Alcohol mg/dL COVID-19 ([facility]) Negative (Negative) COVID-19 Clin Com See Note 11/17/21 Range/Units 13:14 WBC (4.8-10.8) X10*3/uL RBC (4.20-5.50) X10*6/uL Hgb (12.0-16.0) g/dl Hct (37.0-47.0) % MCV (80.0-98.0) fL MCH (27.0-33.0) pg MCHC (31.0-35.0) g/dl RDW (11.0-16.0) % Plt Count (160-400) X10*3/uL MPV (9.4-12.3) fL Immature Gran % (Auto) (0.0-0.4) % Neut % (Auto) (45-73) % Lymph % (Auto) (20-40) % [place] % (Auto) (2-11) % Eos % (Auto) (0-4) % Baso % (Auto) (0-2) % Lymph # (Auto) (1.2-4.9) X10*3/uL [place] # (Auto) (0.1-1.2) X10*3/uL Eos # (Auto) (0.0-0.4) X10*3/uL Baso # (Auto) (0.0-0.2) X10*3/uL Abs Immat Gran (auto) (0.00-0.03) X10*3/uL Absolute Neuts (auto) (2.0-8.3) x10*3/uL Absolute Nucleated RBC (0.0-0.012) X10*3/uL Nucleated RBC % (auto) (0.0-0.2) /100WBC Sodium (135-145) mmol/L Potassium (3.3-5.1) mmol/L Chloride (96-108) mmol/L Carbon Dioxide (22-29) mmol/L Anion Gap (12-20) BUN (9-16) mg/dL Creatinine (0.5-1.4) mg/dL Estim Creat Clear Calc Estimated GFR Random Glucose (60-115) mg/dL Lactic Acid (0.5-2.0) mmol/L Calcium (8.4-10.2) mg/dL Total Bilirubin (0.0-1.0) mg/dL AST (5-31) U/L ALT (0-31) U/L Alkaline Phosphatase (39-117) U/L Ammonia (13-55) umol/L Total Protein (6.5-8.0) g/dL Albumin (3.5-5.0) g/dL TSH (0.32-4.0) uIU/mL Valproic Acid (50.0-100.0) mcg/mL Ethyl Alcohol < 10 mg/dL COVID-19 ([facility]) (Negative) COVID-19 Clin Com Critical Care Time Critical Care Time Total Critical Care Time: 60 Attestation: Critical care time outside of separately billable procedure time. Critical care due to significant valproic acid intoxication with neurological side effects Discharge Plan Discharge Patient Disposition: Admitted As Inpatient Prescriptions: No Action divalproex 500 mg Tablet,Delayed Release (Dr/Ec) 500 mg PO DAILY 30 Days Qty: 30 RF: 0 divalproex 500 mg Tablet,Delayed Release (Dr/Ec) 1,000 mg PO BEDTIME 30 Days Qty: 60 RF: 0 olanzapine 20 mg tablet 20 mg PO BEDTIME Qty: 30 RF: 0 trazodone 50 mg tablet 1 tab PO BEDTIME PRN (Reason: Insomnia) 30 Days Qty: 30 RF: 0 lisinopril 20 mg tablet 1 tab PO DAILY 30 Days Qty: 30 RF: 0
[2021-11-17 13:20] LABS: MANUAL DIFF FLAG NO
[2021-11-17 13:23] LABS: Basophils Percent Auto 0.1 % (0-2); Eosinophils Absolute Auto 0.1 X10*3/uL (0.0-0.4); Eosinophils Percent Auto 1.5 % (0-4); Hematocrit 43.6 % (37.0-47.0); Hemoglobin 14.3 g/dl (12.0-16.0); Imm Gran Abs Auto 0.04 X10*3/uL (0.00-0.03); Imm Gran Pct Auto 0.4 % (0.0-0.4); Lymphocytes Absolute Auto 1.1 X10*3/uL (1.2-4.9); Lymphocytes Percent Auto 11.8 % (20-40); Mean Corpuscular HGB Conc 32.8 g/dl (31.0-35.0); Mean Corpuscular Hemoglobin 29.2 pg (27.0-33.0); Monocytes Absolute Auto 1.1 X10*3/uL (0.1-1.2); Monocytes Percent Auto 11.5 % (2-11); Neutrophils Absolute Auto 6.9 x10*3/uL (2.0-8.3); Neutrophils Percent Auto 74.7 % (45-73); Red Cell Distribution Width 13.2 % (11.0-16.0); White Blood Count 9.2 X10*3/uL (4.8-10.8)
[2021-11-17 13:27] LABS: Ammonia 25 umol/L (13-55)
[2021-11-17 13:30] LABS: Lactic Acid 0.9 mmol/L (0.5-2.0)
[2021-11-17] MEDS: 0.9 % Sodium Chloride 500 ML IV (13:36)
[2021-11-17 13:37] LABS: COVID-19 Test Negative (Negative); IDNOW Serial# 9DD0AD1C
[2021-11-17 13:42] LABS: Ethanol < 10 mg/dL
[2021-11-17 13:45] LABS: Alanine Aminotransferase 15 U/L (0-31); Albumin Level 3.7 g/dL (3.5-5.0); Alkaline Phosphatase 65 U/L (39-117); Anion Gap 12 (12-20); Aspartate Amino Transferase 16 U/L (5-31); Bilirubin Total 0.4 mg/dL (0.0-1.0); Blood Urea Nitrogen 24 mg/dL (9-16); Calcium 8.8 mg/dL (8.4-10.2); Carbon Dioxide 28 mmol/L (22-29); Chloride 108 mmol/L (96-108); Creatinine Clr Calc Pharmacy 53.3; Estimated Glomerular Filt Rate > 60; Glucose Random 90 mg/dL (60-115); Potassium 3.9 mmol/L (3.3-5.1); Sodium 144 mmol/L (135-145); Total Protein 6.6 g/dL (6.5-8.0)
[2021-11-17 13:48] LABS: Mean Platelet Volume 9.1 fL (9.4-12.3); Platelet Count 142 X10*3/uL (160-400)
[2021-11-17 14:06] LABS: TSH reflex Free T4 2.28 uIU/mL (0.32-4.0)
[2021-11-17 14:18] LABS: Valproate 131.8 mcg/mL (50.0-100.0)
[2021-11-17 16:56] VITALS: BP 122/83; PULSE 80; RESP 16; TEMP 36.7; O2SAT 96
--- NOTE | 2021-11-17 17:18 | PC.NURSE ---
Pt assumed care of pt: Pt alert but confused with place and time. Pt offers no complaints at this time but is noted to be generally weak. Pt abd round and nontender.
--- NOTE | 2021-11-17 17:53 | PHA.MEDREC ---
MED REC COMPLETE, PATIENT NOT A GOOD HISTORIAN, REPEATED I GUESS SO WHEN ASKED ABOUT INDIVIDUAL MEDS. DID NOT WISH FOR ME TO REACH OUT TO HER CONTACTS. MED LIST BASED ON PHARMACY HISTORY, CAN TRY TO CALL OFFICE IN AM Pharmacy Consult ? Medication Reconciliation Pharmacy has completed the medication reconciliation.
--- NOTE | 2021-11-17 18:10 | PM.IMHP ---
History of Present Illness Date of Service: 11/17/21 Chief Complaint: Depakote toxicity 71-year-old female fully vaccinated presents with approximately 7 days of worsening fatigue and lethargy that culminated today and inability to walk or get out of bed. She has been on Depakote 1500 mg daily x1 month. In ER, Depakote level found to be 131.8. At this time she will be admitted with diagnosis of Depakote toxicity. All other lab work including ammonia level were unremarkable Review of Systems Review of Systems: denies chest pain Denies shortness of breath Denies nausea vomiting diarrhea PMFSH Medical History Bipolar 1 disorder Social History Household Members: None Housing: Other Housing Other:: triler Do you presently have visiting nurse or other home services: No Alcohol intake: current Alcohol intake frequency: a few times a month Alcohol type: other Patient Tobacco Use Status: Never used Tobacco e-Cigarette/Vaping Use: Never Used Second Hand Smoke Exposure: No Advance Directives: Yes Advance Directives on File: Yes Advance Directives Date on File: 03/19/21 service: No Sexual orientation: Straight/Heterosexual Meds Allergies Allergy/AdvReac Type Severity Reaction Status Date / Time No Known Allergies Allergy Unverified 08/13/20 17:06 [No Known Allergies*] Active Medications: Current Medications Acetaminophen (Acetaminophen 325 Mg Tablet) 650 mg PO Q6H PRN PRN Reason: Pain, Mild (Pain Scale 1-3) Atorvastatin Calcium (Atorvastatin Calcium 80 Mg Tablet) 80 mg PO DAILY [facility] Enoxaparin Sodium (Enoxaparin Sodium 40 Mg/0.4 Ml Syringe) 40 mg SUBCUT Q24H [facility] Lisinopril (Lisinopril 20 Mg Tablet) 20 mg PO DAILY [facility]; Protocol Olanzapine (Olanzapine 10 Mg Tablet) 20 mg PO BEDTIME [facility] Pharmacy Consult (Consult Rx Perform Med Rec) 1 each MISCELLANE ONCE PRN PRN Reason: Consult order Sodium Chloride (0.9 % Sodium Chloride Flush 3 Ml Syringe) 3 ml IVFLUSH QSHIFT [facility] Trazodone HCl (Trazodone Hcl 50 Mg Tablet) 50 mg PO BEDTIME PRN PRN Reason: Insomnia Home Medications Medication Instructions Recorded Confirmed Last Taken Type atorvastatin 80 mg tablet 80 mg PO DAILY 11/17/21 11/17/21 Unknown History Physical Exam Vital Signs and Narrative: Vital Signs: Last Vital Signs Temp 98.1 F 11/17/21 16:56 Pulse 80 11/17/21 16:56 Resp 16 11/17/21 16:56 BP 122/83 11/17/21 16:56 Pulse Ox 96 11/17/21 16:56 BMI result Body Mass Index 23.1 Const: Other: awake alert oriented x3 no acute distress Resp: Other: clear to auscultation bilaterally. No rales rhonchi or wheezes Cardio: Other: no S4; positive S1-S2; no S3 murmurs rubs or gallops GI: Other: soft nontender nondistended with normoactive bowel sounds Neuro: Other: cranial nerves 2-12 grossly intact as tested motor is limited by toxicity movements are short and deliberate Extrem: Other: no edema bilaterally Results Labs CBC and Chem 7: 11/17/21 13:14 11/17/21 13:14 Labs: Laboratory Results - last 24 hr 11/17/21 11/17/21 11/17/21 13:14 13:14 13:14 MCV 89.0 MCH 29.2 MCHC 32.8 RDW 13.2 Plt Count 142 L D MPV 9.1 L Immature Gran % (Auto) 0.4 Neut % (Auto) 74.7 H Lymph % (Auto) 11.8 L [place] % (Auto) 11.5 H Eos % (Auto) 1.5 Baso % (Auto) 0.1 Lymph # (Auto) 1.1 L [place] # (Auto) 1.1 Eos # (Auto) 0.1 Baso # (Auto) 0.0 Abs Immat Gran (auto) 0.04 H Absolute Neuts (auto) 6.9 Absolute Nucleated RBC 0.000 Nucleated RBC % (auto) 0.0 Anion Gap 12 Estim Creat Clear Calc 53.3 Estimated GFR > 60 Random Glucose 90 Lactic Acid 0.9 Calcium 8.8 Total Bilirubin 0.4 AST 16 ALT 15 Alkaline Phosphatase 65 Ammonia Total Protein 6.6 Albumin 3.7 TSH Valproic Acid 131.8 H* Ethyl Alcohol COVID-19 ([facility]) COVID-19 Clin Com 11/17/21 11/17/21 11/17/21 13:14 13:14 13:14 MCV MCH MCHC RDW Plt Count MPV Immature Gran % (Auto) Neut % (Auto) Lymph % (Auto) [place] % (Auto) Eos % (Auto) Baso % (Auto) Lymph # (Auto) [place] # (Auto) Eos # (Auto) Baso # (Auto) Abs Immat Gran (auto) Absolute Neuts (auto) Absolute Nucleated RBC Nucleated RBC % (auto) Anion Gap Estim Creat Clear Calc Estimated GFR Random Glucose Lactic Acid Calcium Total Bilirubin AST ALT Alkaline Phosphatase Ammonia 25 Total Protein Albumin TSH 2.28 Valproic Acid Ethyl Alcohol COVID-19 ([facility]) Negative COVID-19 Clin Com See Note 11/17/21 13:14 MCV MCH MCHC RDW Plt Count MPV Immature Gran % (Auto) Neut % (Auto) Lymph % (Auto) [place] % (Auto) Eos % (Auto) Baso % (Auto) Lymph # (Auto) [place] # (Auto) Eos # (Auto) Baso # (Auto) Abs Immat Gran (auto) Absolute Neuts (auto) Absolute Nucleated RBC Nucleated RBC % (auto) Anion Gap Estim Creat Clear Calc Estimated GFR Random Glucose Lactic Acid Calcium Total Bilirubin AST ALT Alkaline Phosphatase Ammonia Total Protein Albumin TSH Valproic Acid Ethyl Alcohol < 10 COVID-19 ([facility]) COVID-19 Clin Com Imaging Radiologist's Impressions: Impressions Chest X-Ray 11/17/21 12:25 IMPRESSION: 13 mm irregular lesion question as above. Recommend elective CT for further assessment. Trace nonspecific pleural effusions both bases. Assessment and Plan (1) Valproic acid toxicity: Qualifiers: Encounter type: initial encounter Injury intent: accidental or unintentional Qualified Code(s): T42.6X1A - Poisoning by other antiepileptic and sedative-hypnotic drugs, accidental (unintentional), initial encounter Status: Acute (2) Bipolar 1 disorder: Status: Acute 71-year-old female fully vaccinated with a history of bipolar disorder type 1 presents with inability to ambulate secondary to Depakote toxicity 1. Depakote toxicity will admit to hospital IV fluids overnight and check level in the morning. Therapy consists of withholding meds and rechecking levels in a.m.. No need for telemetry 2. Bipolar 1 disorder Willi to follow up with outpatient provider for alternative dosing in closer follow-up 3. Hypertension Continue lisinopril at 20 mg daily. Adjust as indicated full code Lovenox Quality Stroke Does the patient have a stroke diagnosis?: No VTE Prior VTE?: No VTE Risk Level:: Medical - moderate - high VTE Device Contraindication: Treatment Not Indicated VTE Drug Contraindication: N/A - Med Ordered
[2021-11-17 19:11] LABS: Appearance Urine CLEAR; Color Urine YELLOW; Glucose Urine UA NEG (NEG); Leukocyte Esterase Urine TRACE (NEG); Nitrite Urine NEG (NEG); Specific Gravity - Urine >= 1.030 (1.005-1.025); UACC Culture Trigger YES; Urine Blood NEG (NEG); Urine Ketones 15 MG/DL (NEG); Urine Protein TRACE MG/DL (NEG-TRACE)
[2021-11-17 19:20] LABS: Amphetamine Screen Urine Not Detected (Not Detect); Barbiturates, Urine Not Detected (Not Detect); Benzodiazepines Screen Urine Not Detected (Not Detect); Cannabinoid Screen Urine Not Detected (Not Detect); Cocaine Screen Urine Not Detected (Not Detect); Fentanyl, urine Not Detected (Not Detect); Mucus Urine 1+ /LPF; Opiate Screen Urine Not Detected (Not Detect); Phencyclidine Screen Urine Not Detected (Not Detect); Squamous Epithelial Cell Urine 1+ /LPF
[2021-11-17] MEDS: OLANZapine 10 MG TABLET 20 MG PO (21:24)
--- NOTE | 2021-11-18 05:02 | PC.NURSE ---
Pt resting on stretcher. Pt states still feeling tired. Pt offered to use bedpan. Pt refused Pt offered some water. Pt refused Will continue to monitor
[2021-11-18 05:03] VITALS: BP 108/77; PULSE 83; RESP 20; TEMP 36; O2SAT 96
[2021-11-18 06:53] LABS: MANUAL DIFF FLAG NO
[2021-11-18 06:58] LABS: Basophils Percent Auto 0.3 % (0-2); Eosinophils Absolute Auto 0.3 X10*3/uL (0.0-0.4); Eosinophils Percent Auto 3.9 % (0-4); Hematocrit 37.8 % (37.0-47.0); Hemoglobin 12.3 g/dl (12.0-16.0); Imm Gran Abs Auto 0.05 X10*3/uL (0.00-0.03); Imm Gran Pct Auto 0.7 % (0.0-0.4); Lymphocytes Percent Auto 13.8 % (20-40); Mean Corpuscular HGB Conc 32.5 g/dl (31.0-35.0); Mean Corpuscular Hemoglobin 29.1 pg (27.0-33.0); Mean Corpuscular Volume 89.4 fL (80.0-98.0); Mean Platelet Volume 9.3 fL (9.4-12.3); Monocytes Absolute Auto 1.1 X10*3/uL (0.1-1.2); Monocytes Percent Auto 15.3 % (2-11); Neutrophils Absolute Auto 4.9 x10*3/uL (2.0-8.3); Red Blood Count 4.23 X10*6/uL (4.20-5.50); Red Cell Distribution Width 13.5 % (11.0-16.0); White Blood Count 7.4 X10*3/uL (4.8-10.8)
[2021-11-18 07:17] LABS: Alanine Aminotransferase 12 U/L (0-31); Albumin Level 3.1 g/dL (3.5-5.0); Alkaline Phosphatase 56 U/L (39-117); Anion Gap 9 (12-20); Aspartate Amino Transferase 14 U/L (5-31); Bilirubin Total 0.4 mg/dL (0.0-1.0); Blood Urea Nitrogen 20 mg/dL (9-16); Calcium 8.4 mg/dL (8.4-10.2); Carbon Dioxide 27 mmol/L (22-29); Chloride 111 mmol/L (96-108); Creatinine Clr Calc Pharmacy 60.8; Estimated Glomerular Filt Rate > 60; Glucose Fasting 86 mg/dL (60-99); Potassium 3.8 mmol/L (3.3-5.1); Sodium 143 mmol/L (135-145); Total Protein 5.6 g/dL (6.5-8.0)
[2021-11-18 07:19] LABS: Valproate 60.4 mcg/mL (50.0-100.0)
[2021-11-18 07:55] LABS: Platelet Count 103 X10*3/uL (160-400)
--- NOTE | 2021-11-18 08:10 | PC.NURSE ---
Received pt from [employer] shift supervisor: Pt slight sleepy but easily arousable. Pt AOx4 and offers no complaints. Heart sounds normal and lungs clear. Pt abd soft and non-tender.
[2021-11-18 08:45] VITALS: BP 116/82; PULSE 92; RESP 16; TEMP 36.9; O2SAT 95
[2021-11-18] MEDS: Atorvastatin Calcium 80 MG TABLET PO (08:47)
[2021-11-18] MEDS: lisinopriL 20 MG TABLET PO (08:47)
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
--- NOTE | 2021-11-18 12:51 | PC.NURSE ---
Pt update status given to pt;s daughter Sirena ([phone]) who relays she would like the consulted psychiatrist to be aware of medications that work with the pt: deyexa, trazadone, and depakote (500mg) Daily in AM. Sirena also gave pt's outpt psychiatrist MD Carrillo number ([phone]). Dr Thomas made aware of this conversation.
--- NOTE | 2021-11-18 15:47 | HO.PM.IMPN ---
Subjective Subjective Date of Service: 11/22/21 Interval History: improved overnight. Able to move with assistance this morning Review of Systems denies chest pain Denies shortness of breath Denies nausea vomiting diarrhea Physical Exam Vital Signs: Vital Signs: Last Vital Signs Temp 98.4 F 11/18/21 08:45 Pulse 92 11/18/21 08:45 Resp 16 11/18/21 08:45 BP 116/82 11/18/21 08:45 Pulse Ox 95 11/18/21 08:45 BMI result Body Mass Index 23.1 Const: Other: awake alert oriented x3 no acute distress Resp: Other: clear to auscultation bilaterally. No rales rhonchi or wheezes Cardio: Other: no S4; positive S1-S2; no S3 murmurs rubs or gallops GI: Other: soft nontender nondistended with normoactive bowel sounds Neuro: Other: cranial nerves 2-12 grossly intact as tested motor is limited by toxicity movements are short and deliberate Extrem: Other: no edema bilaterally Objective Data Active Medications Acetaminophen (Acetaminophen 325 Mg Tablet) 650 mg PO Q6H PRN PRN Reason: Pain, Mild (Pain Scale 1-3) Atorvastatin Calcium (Atorvastatin Calcium 80 Mg Tablet) 80 mg PO DAILY [facility] Last Admin: 11/18/21 08:47 Dose: 80 mg Documented by: BIANKA Divalproex Sodium (Divalproex Sodium Er 500 Mg Tab.Er.24h) 500 mg PO BEDTIME [facility] Enoxaparin Sodium (Enoxaparin Sodium 40 Mg/0.4 Ml Syringe) 40 mg SUBCUT Q24H [facility] Last Admin: 11/17/21 21:28 Dose: Not Given Documented by: DEVON Non-Admin Reason: Patient Refused Lisinopril (Lisinopril 20 Mg Tablet) 20 mg PO DAILY [facility]; Protocol Last Admin: 11/18/21 08:47 Dose: 20 mg Documented by: BIANKA Olanzapine (Olanzapine 10 Mg Tablet) 20 mg PO BEDTIME [facility] Last Admin: 11/17/21 21:24 Dose: 20 mg Documented by: DEVON Pharmacy Consult (Consult Rx Perform Med Rec) 1 each MISCELLANE ONCE PRN PRN Reason: Consult order Sodium Chloride (0.9 % Sodium Chloride Flush 3 Ml Syringe) 3 ml IVFLUSH QSHIFT [facility] Last Admin: 11/18/21 12:00 Dose: Not Given Documented by: BIANKA Non-Admin Reason: Med Not Available Trazodone HCl (Trazodone Hcl 50 Mg Tablet) 50 mg PO BEDTIME PRN PRN Reason: Insomnia Labs CBC & Chem 7: 11/20/21 05:44 11/20/21 05:44 Labs: Laboratory Results - last 24 hr 11/17/21 11/17/21 11/18/21 18:56 18:56 06:32 MCV 89.4 MCH 29.1 MCHC 32.5 RDW 13.5 Plt Count 103 L D MPV 9.3 L Immature Gran % (Auto) 0.7 H Neut % (Auto) 66.0 Lymph % (Auto) 13.8 L [place] % (Auto) 15.3 H Eos % (Auto) 3.9 Baso % (Auto) 0.3 Lymph # (Auto) 1.0 L [place] # (Auto) 1.1 Eos # (Auto) 0.3 Baso # (Auto) 0.0 Abs Immat Gran (auto) 0.05 H Absolute Neuts (auto) 4.9 Absolute Nucleated RBC 0.000 Nucleated RBC % (auto) 0.0 Anion Gap Estim Creat Clear Calc Estimated GFR Fasting Glucose Calcium Total Bilirubin AST ALT Alkaline Phosphatase Total Protein Albumin Urine Color YELLOW Urine Appearance CLEAR Urine pH 6.0 Ur Specific [place] >= 1.030 H Urine Protein TRACE Urine Glucose (UA) NEG Urine Ketones 15 Urine Blood NEG Urine Nitrite NEG Ur Leukocyte Esterase TRACE H Urine RBC 1-4 Urine WBC 5-9 H Ur Squamous Epith Cells 1+ Urine Bacteria NONE Urine Mucus 1+ Urine Opiates Screen Not Detected Urine Fentanyl Screen Not Detected Ur Barbiturates Screen Not Detected Valproic Acid Ur Phencyclidine Scrn Not Detected Ur Amphetamines Screen Not Detected U Benzodiazepines Scrn Not Detected Urine Cocaine Screen Not Detected U Marijuana (THC) Screen Not Detected 11/18/21 06:32 MCV MCH MCHC RDW Plt Count MPV Immature Gran % (Auto) Neut % (Auto) Lymph % (Auto) [place] % (Auto) Eos % (Auto) Baso % (Auto) Lymph # (Auto) [place] # (Auto) Eos # (Auto) Baso # (Auto) Abs Immat Gran (auto) Absolute Neuts (auto) Absolute Nucleated RBC Nucleated RBC % (auto) Anion Gap 9 L Estim Creat Clear Calc 60.8 Estimated GFR > 60 Fasting Glucose 86 Calcium 8.4 Total Bilirubin 0.4 AST 14 ALT 12 Alkaline Phosphatase 56 Total Protein 5.6 L Albumin 3.1 L Urine Color Urine Appearance Urine pH Ur Specific [place] Urine Protein Urine Glucose (UA) Urine Ketones Urine Blood Urine Nitrite Ur Leukocyte Esterase Urine RBC Urine WBC Ur Squamous Epith Cells Urine Bacteria Urine Mucus Urine Opiates Screen Urine Fentanyl Screen Ur Barbiturates Screen Valproic Acid 60.4 Ur Phencyclidine Scrn Ur Amphetamines Screen U Benzodiazepines Scrn Urine Cocaine Screen U Marijuana (THC) Screen Microbiology Microbiology Results: Microbiology 11/17/21 19:13 Urine Culture - Preliminary Urine clean catch - Urine lo top Culture too young to evaluate. Assessment and Plan Assessment and Plan: 71-year-old female fully vaccinated with a history of bipolar disorder type 1 presents with inability to ambulate secondary to Depakote toxicity 1. Depakote toxicity level normalized overnight. Patient more freely moving. Will ask PT to eval 2. Bipolar 1 disorder Seen by psych; they will restart Depakote in a.m. and follow 3. Hypertension Continue lisinopril at 20 mg daily. Adjust as indicated full code Prometheon Pharmanox Quality Stroke Does the patient have a stroke diagnosis?: No VTE Prior VTE?: No VTE Risk Level:: Medical - moderate - high VTE Device Contraindication: Treatment Not Indicated VTE Drug Contraindication: N/A - Med Ordered
--- NOTE | 2021-11-18 15:49 | MHC.CM.PN ---
CM CALLED PTS DAUGHTER/HCP, NOREEN CASE [phone]. SHE REPORTS THE PT LIVES ALONE AND IS NOW ACTIVE WITH [facility] FOR DAILY MEDICATION MANAGEMENT SHE REPORTS THE PT HAS NEEDED SERVICES FORA LONG TIME BUT IS ONLY NOW AGREEABLE SHE REPORTS SHE HAS BEEN TRYING TO GET [facility] IN THE HOME. THE PT HAD AN APPT WITH THEM COMING UP BUT IT WILL NOW BE POSTPONED DUE TO PTS ADMISSION [facility] REPORTS THE PT WAS JUST DISCHARGED FROM [facility] SO SHE HAS A LIST OF THE PTS PROVIDERS AND REFERRALS MADE: THERAPY @ [facility]: DENG GONZALEZ [phone] PSYCH @ [facility]: GERTRUDIS VENCES [phone] REFERRAL TO [facility] TO SECURE SERVICES REFERRAL TO [facility] FOR DAILY MEDICATION MANAGEMENT AND LOCK BOX GAM[facility]IEL WAS INFORMED JAMES WOULD UPDATE BOTH [facility] AND [facility] IMM DELIVERED ORIGINAL WILL BE MAILED TO [facility]. COPY SENT TO [facility] CURRENT DC PLAN IS HOME WITH RESUMPTION OF [facility] AND REFERRAL TO [facility] TO TRANSPORT
[2021-11-18 18:07] VITALS: BP 147/83; PULSE 95; RESP 16; TEMP 37.3; O2SAT 96
[2021-11-18 20:48] VITALS: BP 131/73; PULSE 86; RESP 18; TEMP 36.8; O2SAT 95
[2021-11-18] MEDS: OLANZapine 10 MG TABLET 20 MG PO (21:24)
[2021-11-18] MEDS: 0.9 % Sodium Chloride Flush 3 ML SYRINGE IVFLUSH (21:26)
[2021-11-18 23:38] VITALS: BP 122/81; PULSE 86; RESP 18; TEMP 36.6; O2SAT 94
[2021-11-19 03:11] VITALS: BP 119/75; PULSE 93; RESP 18; TEMP 36.2; O2SAT 94
[2021-11-19 06:21] LABS: Basophils Percent Auto 0.4 % (0-2); Eosinophils Absolute Auto 0.4 X10*3/uL (0.0-0.4); Eosinophils Percent Auto 4.6 % (0-4); Hematocrit 38.5 % (37.0-47.0); Hemoglobin 12.6 g/dl (12.0-16.0); Imm Gran Abs Auto 0.07 X10*3/uL (0.00-0.03); Imm Gran Pct Auto 0.8 % (0.0-0.4); Lymphocytes Absolute Auto 1.4 X10*3/uL (1.2-4.9); MANUAL DIFF FLAG SCAN; Mean Corpuscular HGB Conc 32.7 g/dl (31.0-35.0); Mean Corpuscular Hemoglobin 29.2 pg (27.0-33.0); Mean Corpuscular Volume 89.3 fL (80.0-98.0); Mean Platelet Volume 9.8 fL (9.4-12.3); Monocytes Absolute Auto 1.4 X10*3/uL (0.1-1.2); Monocytes Percent Auto 16.2 % (2-11); Neutrophils Absolute Auto 5.1 x10*3/uL (2.0-8.3); PLT CLUMP 1; Red Blood Count 4.31 X10*6/uL (4.20-5.50); Red Cell Distribution Width 13.5 % (11.0-16.0); SCAN SMEAR FLAG 1
[2021-11-19 06:22] LABS: Valproate 30.1 mcg/mL (50.0-100.0)
[2021-11-19 06:26] LABS: Alanine Aminotransferase 11 U/L (0-31); Albumin Level 3.1 g/dL (3.5-5.0); Alkaline Phosphatase 58 U/L (39-117); Anion Gap 10 (12-20); Aspartate Amino Transferase 13 U/L (5-31); Bilirubin Total 0.5 mg/dL (0.0-1.0); Blood Urea Nitrogen 20 mg/dL (9-16); Calcium 8.5 mg/dL (8.4-10.2); Carbon Dioxide 27 mmol/L (22-29); Chloride 109 mmol/L (96-108); Creatinine Clr Calc Pharmacy 61.8; Estimated Glomerular Filt Rate > 60; Glucose Fasting 99 mg/dL (60-99); Potassium 3.5 mmol/L (3.3-5.1); Sodium 142 mmol/L (135-145); Total Protein 5.6 g/dL (6.5-8.0)
[2021-11-19 06:28] LABS: Platelet Count 95 X10*3/uL (160-400); White Blood Count 8.4 X10*3/uL (4.8-10.8)
[2021-11-19 06:29] LABS: SLIDE REVIEW VERIFIED
[2021-11-19 07:25] VITALS: BP 112/76; PULSE 83; RESP 18; TEMP 36.5; O2SAT 94
[2021-11-19 07:32] LABS: Glucose, Whole Blood 96 mg/dL (60-115)
[2021-11-19 09:17] VITALS: BP 112/76; PULSE 83
[2021-11-19] MEDS: lisinopriL 20 MG TABLET PO (09:17)
[2021-11-19] MEDS: Atorvastatin Calcium 80 MG TABLET PO (09:17)
[2021-11-19] MEDS: 0.9 % Sodium Chloride Flush 3 ML SYRINGE IVFLUSH ×3 (09:18→21:24)
--- NOTE | 2021-11-19 09:48 | MHC.CM.PN ---
Addendum entered by Lacy Mancilla 11/19/21 11:22: [facility] WILL [facility] FOR AN OFFER OF STR BED. CURRENTLY [facility] HAS NO BEDS. Original Note: PER CONVERSATION WITH HOSPITALIST, PATIENT WOULD BENEFIT FROM SHORT TERM REHAB. PATIENT IS AGREEABLE TO THIS PLAN CALL TO [facility] (PER PATIENT REQUEST) @ [phone] AND MESSAGE LEFT FOR A CALL BACK. REQUEST FOR SNF CHOICES TO BE MADE.
[2021-11-19 11:19] VITALS: BP 119/75; PULSE 84; RESP 16; TEMP 36.2; O2SAT 95
--- NOTE | 2021-11-19 11:41 | HO.PM.IMPN ---
Subjective Subjective Date of Service: 11/19/21 Interval History: the patient was seen and evaluated this morning Laying in bed, feels Very weak and has no energy Denies any fever, chills or shortness of breath No reported other overnight events. Systemic review: No fever, chills but reports generalized weakness No chest pain, palpitation No shortness of breath or coughing No abdominal pain, but mild nausea No urinary symptoms No any rash or wounds Physical Exam Vital Signs: Vital Signs: Last Vital Signs Temp 97.2 F 11/19/21 11:19 Pulse 84 11/19/21 11:19 Resp 16 11/19/21 11:19 BP 119/75 11/19/21 11:19 Pulse Ox 95 11/19/21 11:19 BMI result Body Mass Index 23.1 Const: Other: Constitutional : Alert, looks weak, not in distress, looks lethargic and has no energy Neck : Normal inspection, Supple Cardiovascular : RRR, S1 S2, no lower extremity edema Respiratory : fair bilateral air entry, no crackles, wheezes or rhonchi Gastrointestinal: soft, lax, Normal bowel sounds, Non tender Skin : Warm, Dry Neurological : Alert & oriented to self and placed, No focal deficit Objective Data Active Medications Acetaminophen (Acetaminophen 325 Mg Tablet) 650 mg PO Q6H PRN PRN Reason: Pain, Mild (Pain Scale 1-3) Atorvastatin Calcium (Atorvastatin Calcium 80 Mg Tablet) 80 mg PO DAILY [facility] Last Admin: 11/19/21 09:17 Dose: 80 mg Documented by: SENTHIL Divalproex Sodium (Divalproex Sodium Er 500 Mg Tab.Er.24h) 500 mg PO BEDTIME [facility] Enoxaparin Sodium (Enoxaparin Sodium 40 Mg/0.4 Ml Syringe) 40 mg SUBCUT Q24H [facility] Last Admin: 11/18/21 21:28 Dose: Not Given Documented by: CHELA Non-Admin Reason: Patient Refused Lisinopril (Lisinopril 20 Mg Tablet) 20 mg PO DAILY [facility]; Protocol Last Admin: 11/19/21 09:17 Dose: 20 mg Documented by: SENTHIL Olanzapine (Olanzapine 10 Mg Tablet) 20 mg PO BEDTIME [facility] Last Admin: 11/18/21 21:24 Dose: 20 mg Documented by: CHELA Pharmacy Consult (Consult Rx Perform Med Rec) 1 each MISCELLANE ONCE PRN PRN Reason: Consult order Sodium Chloride (0.9 % Sodium Chloride Flush 3 Ml Syringe) 3 ml IVFLUSH QSHIFT [facility] Last Admin: 11/19/21 09:18 Dose: 3 ml Documented by: SENTHIL Trazodone HCl (Trazodone Hcl 50 Mg Tablet) 50 mg PO BEDTIME PRN PRN Reason: Insomnia Labs CBC & Chem 7: 11/19/21 05:23 11/19/21 05:23 Labs: Laboratory Results - last 24 hr 11/19/21 11/19/21 11/19/21 05:23 05:23 07:27 MCV 89.3 MCH 29.2 MCHC 32.7 RDW 13.5 Plt Count 95 L MPV 9.8 Immature Gran % (Auto) 0.8 H Neut % (Auto) 61.0 Lymph % (Auto) 17.0 L [place] % (Auto) 16.2 H Eos % (Auto) 4.6 H Baso % (Auto) 0.4 Lymph # (Auto) 1.4 [place] # (Auto) 1.4 H Eos # (Auto) 0.4 Baso # (Auto) 0.0 Abs Immat Gran (auto) 0.07 H Absolute Neuts (auto) 5.1 Absolute Nucleated RBC 0.000 Nucleated RBC % (auto) 0.0 Smear Tech's Comments VERIFIED Anion Gap 10 L Estim Creat Clear Calc 61.8 Estimated GFR > 60 POC Glucose 96 Fasting Glucose 99 Calcium 8.5 Total Bilirubin 0.5 AST 13 ALT 11 Alkaline Phosphatase 58 Total Protein 5.6 L Albumin 3.1 L Valproic Acid 30.1 L Microbiology Microbiology Results: Microbiology 11/17/21 19:13 Urine Culture - Final Urine clean catch - Urine lo top Assessment and Plan (1) Physical deconditioning: Status: Acute (2) Valproic acid toxicity: Status: Acute Assessment and Plan: 71-year-old female fully vaccinated with a history of bipolar disorder type 1 presents with inability to ambulate secondary to Depakote toxicity Depakote toxicity level went below normal Pending PT eval restarted at a lower dose by the psych team Physical deconditioning Related to general deconditioning decreased exercise To do PT evaluation with possible SNF placement Bipolar 1 disorder Seen by psych; they will restart Depakote in a.m. and follow Hypertension Continue lisinopril at 20 mg daily. Adjust as indicated full code Lovenox Quality Stroke Does the patient have a stroke diagnosis?: No VTE Prior VTE?: No VTE Risk Level:: Medical - moderate - high VTE Device Contraindication: Treatment Not Indicated VTE Drug Contraindication: N/A - Med Ordered
[2021-11-19 12:18] LABS: Glucose, Whole Blood 80 mg/dL (60-115)
[2021-11-19 15:03] VITALS: BP 105/64; PULSE 70; RESP 20; TEMP 36.4; O2SAT 95
[2021-11-19 18:57] VITALS: BP 140/90; PULSE 77; RESP 20; TEMP 36.2; O2SAT 98
[2021-11-19] MEDS: OLANZapine 10 MG TABLET 20 MG PO (21:22)
[2021-11-19] MEDS: Divalproex Sodium ER 500 MG TAB.ER.24H PO (21:22)
[2021-11-20] VITALS: BP 131/83; PULSE 86; RESP 15; TEMP 36.8; O2SAT 97
[2021-11-20 03:51] VITALS: BP 108/66; PULSE 88; RESP 16; TEMP 36.4; O2SAT 96
[2021-11-20 07:18] LABS: Mean Corpuscular Volume 90.1 fL (80.0-98.0); Mean Platelet Volume 9.8 fL (9.4-12.3); PLT CLUMP 1
[2021-11-20 07:20] LABS: Hematocrit 37.2 % (37.0-47.0); Hemoglobin 11.9 g/dl (12.0-16.0); Mean Corpuscular Hemoglobin 28.8 pg (27.0-33.0); Platelet Count 123 X10*3/uL (160-400); Red Blood Count 4.13 X10*6/uL (4.20-5.50); Red Cell Distribution Width 13.6 % (11.0-16.0); White Blood Count 10.1 X10*3/uL (4.8-10.8)
[2021-11-20 07:28] VITALS: BP 112/75; PULSE 83; RESP 14; TEMP 36.4; O2SAT 96
[2021-11-20 07:35] LABS: Glucose, Whole Blood 95 mg/dL (60-115)
[2021-11-20 07:42] LABS: Anion Gap 9 (12-20); Blood Urea Nitrogen 19 mg/dL (9-16); Calcium 8.3 mg/dL (8.4-10.2); Carbon Dioxide 27 mmol/L (22-29); Chloride 109 mmol/L (96-108); Creatinine Clr Calc Pharmacy 63.8; Estimated Glomerular Filt Rate > 60; Glucose Random 93 mg/dL (60-115); Potassium 3.8 mmol/L (3.3-5.1); Sodium 141 mmol/L (135-145)
--- NOTE | 2021-11-20 09:25 | MHC.CM.PN ---
Addendum entered by Shantelle Grant RN 11/20/21 12:18: BOTH SNF'S REQUESTING CM FOLLOW-UP ON MONDAY D/T NO AUTH D/T W/E. Original Note: PER HOSPITALIST PT CLEARED FOR D/C, CM HAS SENT MESSAGES TO BOTH SNF'S PT HAS REFERRALS TO [facility] CURRENTLY AWAITING RESPONSE.
[2021-11-20] MEDS: lisinopriL 20 MG TABLET PO (09:45)
[2021-11-20] MEDS: 0.9 % Sodium Chloride Flush 3 ML SYRINGE IVFLUSH ×3 (09:45→20:26)
[2021-11-20] MEDS: Atorvastatin Calcium 80 MG TABLET PO (09:45)
--- NOTE | 2021-11-20 10:36 | HO.PM.IMPN ---
Subjective Subjective Date of Service: 11/20/21 Interval History: the patient was seen and evaluated this morning Laying in bed, feels much bowel are and having more energy Denies any fever, chills or shortness of breath No reported other overnight events. Systemic review: No fever, chills and feels better today No chest pain, palpitation No shortness of breath or coughing No abdominal pain, but mild nausea No urinary symptoms No any rash or wounds Physical Exam Vital Signs: Vital Signs: Last Vital Signs Temp 97.6 F 11/20/21 07:28 Pulse 83 11/20/21 07:28 Resp 14 11/20/21 07:28 BP 112/75 11/20/21 07:28 Pulse Ox 96 11/20/21 07:28 BMI result Body Mass Index 23.1 Const: Other: Constitutional : Alert, looks weak, not in distress, more interactive Neck : Normal inspection, Supple Cardiovascular : RRR, S1 S2, no lower extremity edema Respiratory : fair bilateral air entry, no crackles, wheezes or rhonchi Gastrointestinal: soft, lax, Normal bowel sounds, Non tender Skin : Warm, Dry Neurological : Alert & oriented to self and placed, No focal deficit Objective Data Active Medications Acetaminophen (Acetaminophen 325 Mg Tablet) 650 mg PO Q6H PRN PRN Reason: Pain, Mild (Pain Scale 1-3) Atorvastatin Calcium (Atorvastatin Calcium 80 Mg Tablet) 80 mg PO DAILY [facility] Last Admin: 11/20/21 09:45 Dose: 80 mg Documented by: CARMEN Divalproex Sodium (Divalproex Sodium Er 500 Mg Tab.Er.24h) 500 mg PO BEDTIME [facility] Last Admin: 11/19/21 21:22 Dose: 500 mg Documented by: SHAD Enoxaparin Sodium (Enoxaparin Sodium 40 Mg/0.4 Ml Syringe) 40 mg SUBCUT Q24H [facility] Last Admin: 11/19/21 21:24 Dose: Not Given Documented by: SHAD Non-Admin Reason: Patient Refused Lisinopril (Lisinopril 20 Mg Tablet) 20 mg PO DAILY [facility]; Protocol Last Admin: 11/20/21 09:45 Dose: 20 mg Documented by: CARMEN Olanzapine (Olanzapine 10 Mg Tablet) 20 mg PO BEDTIME [facility] Last Admin: 11/19/21 21:22 Dose: 20 mg Documented by: SHAD Pharmacy Consult (Consult Rx Perform Med Rec) 1 each MISCELLANE ONCE PRN PRN Reason: Consult order Sodium Chloride (0.9 % Sodium Chloride Flush 3 Ml Syringe) 3 ml IVFLUSH QSHIFT [facility] Last Admin: 11/20/21 09:45 Dose: 3 ml Documented by: CARMEN Trazodone HCl (Trazodone Hcl 50 Mg Tablet) 50 mg PO BEDTIME PRN PRN Reason: Insomnia Labs CBC & Chem 7: 11/20/21 05:44 11/20/21 05:44 Labs: Laboratory Results - last 24 hr 11/19/21 11/20/21 11/20/21 11:24 05:44 05:44 MCV 90.1 MCH 28.8 MCHC 32.0 RDW 13.6 Plt Count 123 L D MPV 9.8 Absolute Nucleated RBC 0.000 Nucleated RBC % (auto) 0.0 Anion Gap 9 L Estim Creat Clear Calc 63.8 Estimated GFR > 60 POC Glucose 80 Random Glucose 93 Calcium 8.3 L 11/20/21 07:31 MCV MCH MCHC RDW Plt Count MPV Absolute Nucleated RBC Nucleated RBC % (auto) Anion Gap Estim Creat Clear Calc Estimated GFR POC Glucose 95 Random Glucose Calcium Microbiology Microbiology Results: Microbiology 11/17/21 19:13 Urine Culture - Final Urine clean catch - Urine lo top Assessment and Plan (1) Physical deconditioning: Status: Acute (2) Valproic acid toxicity: Status: Acute Assessment and Plan: 71-year-old female fully vaccinated with a history of bipolar disorder type 1 presents with inability to ambulate secondary to Depakote toxicity Depakote toxicity level went below normal restarted at a lower dose by the psych team Physical deconditioning Related to general deconditioning decreased exercise PT evaluation, plan to SNF placement Bipolar 1 disorder Seen by psych; they restart Depakote in a.m. and follow Hypertension Continue lisinopril at 20 mg daily. Adjust as indicated full code Lovenox Quality Stroke Does the patient have a stroke diagnosis?: No VTE Prior VTE?: No VTE Risk Level:: Medical - moderate - high VTE Device Contraindication: Treatment Not Indicated VTE Drug Contraindication: N/A - Med Ordered
[2021-11-20 12:00] VITALS: BP 101/66; PULSE 91; RESP 16; TEMP 36.9; O2SAT 94
[2021-11-20 13:04] LABS: Glucose, Whole Blood 96 mg/dL (60-115)
[2021-11-20 15:22] VITALS: BP 129/76; PULSE 99; RESP 18; TEMP 36.3; O2SAT 97
[2021-11-20 16:36] LABS: Glucose, Whole Blood 99 mg/dL (60-115)
[2021-11-20 18:58] VITALS: BP 99/57; PULSE 87; RESP 18; TEMP 36.3; O2SAT 96
[2021-11-20 19:50] LABS: Glucose, Whole Blood 104 mg/dL (60-115)
[2021-11-20] MEDS: Divalproex Sodium ER 500 MG TAB.ER.24H PO (20:26)
[2021-11-20] MEDS: OLANZapine 10 MG TABLET 20 MG PO (20:26)
[2021-11-21] VITALS (7 sets, daily range): BP systolic 103–130; BP diastolic 67–77; PULSE 81–100; RESP 15–18; TEMP 36–37.2; O2SAT 94–97
[2021-11-21] MEDS: lisinopriL 20 MG TABLET PO (09:19)
[2021-11-21] MEDS: Atorvastatin Calcium 80 MG TABLET PO (09:19)
[2021-11-21] MEDS: 0.9 % Sodium Chloride Flush 3 ML SYRINGE IVFLUSH ×3 (09:19→20:26)
--- NOTE | 2021-11-21 11:27 | MHC.CM.PN ---
[facility] REFERRAL
--- NOTE | 2021-11-21 12:37 | P.PNIM_ITS ---
Subjective Subjective Date of Service: 11/21/21 Interval History: the patient was seen and evaluated this morning Sitting in chair, having more energy Denies any fever, chills or shortness of breath No reported other overnight events. Systemic review: No fever, chills and feels better today No chest pain, palpitation No shortness of breath or coughing No abdominal pain, but mild nausea No urinary symptoms No any rash or wounds Physical Exam Vital Signs: Vital Signs: Last Vital Signs Temp 98.9 F 11/21/21 11:44 Pulse 96 11/21/21 11:44 Resp 18 11/21/21 11:44 BP 103/67 11/21/21 11:44 Pulse Ox 96 11/21/21 11:44 BMI result Body Mass Index 23.1 Const: Other: Constitutional : Alert, looks weak, not in distress, more interactive Neck : Normal inspection, Supple Cardiovascular : RRR, S1 S2, no lower extremity edema Respiratory : fair bilateral air entry, no crackles, wheezes or rhonchi Gastrointestinal: soft, lax, Normal bowel sounds, Non tender Skin : Warm, Dry Neurological : Alert & oriented to self and placed, No focal deficit Objective Data Active Medications Acetaminophen (Acetaminophen 325 Mg Tablet) 650 mg PO Q6H PRN PRN Reason: Pain, Mild (Pain Scale 1-3) Atorvastatin Calcium (Atorvastatin Calcium 80 Mg Tablet) 80 mg PO DAILY [facility]S [facility] Last Admin: 11/21/21 09:19 Dose: 80 mg Documented by: ALVIN Divalproex Sodium (Divalproex Sodium Er 500 Mg Tab.Er.24h) 500 mg PO BEDTIME [facility]S AT [facility] Last Admin: 11/20/21 20:26 Dose: 500 mg Documented by: CHELA Enoxaparin Sodium (Enoxaparin Sodium 40 Mg/0.4 Ml Syringe) 40 mg SUBCUT Q24H [facility] 234 B[facility]S AT [facility] Last Admin: 11/20/21 20:26 Dose: Not Given Documented by: CHELA Non-Admin Reason: Patient Refused Lisinopril (Lisinopril 20 Mg Tablet) 20 mg PO DAILY [facility]S [facility]; Protocol Last Admin: 11/21/21 09:19 Dose: 20 mg Documented by: ALVIN Olanzapine (Olanzapine 10 Mg Tablet) 20 mg PO BEDTIME [facility] 234 BEDS AT [facility] Last Admin: 11/20/21 20:26 Dose: 20 mg Documented by: CHELA Pharmacy Consult (Consult Rx Perform Med Rec) 1 each MISCELLANE ONCE PRN PRN Reason: Consult order Sodium Chloride (0.9 % Sodium Chloride Flush 3 Ml Syringe) 3 ml IVFLUSH QSHIFT [facility]S [facility]CLUDE 234 BEDS AT [facility] Last Admin: 11/21/21 09:19 Dose: 3 ml Documented by: ALVIN Trazodone HCl (Trazodone Hcl 50 Mg Tablet) 50 mg PO BEDTIME PRN PRN Reason: Insomnia Labs CBC & Chem 7: 11/20/21 05:44 11/20/21 05:44 Labs: Laboratory Results - last 24 hr 11/20/21 11/20/21 11/20/21 12:20 16:31 19:44 POC Glucose 96 99 104 Assessment and Plan (1) Physical deconditioning: Status: Acute (2) Valproic acid toxicity: Status: Acute (3) Bipolar 1 disorder: Status: Acute Assessment and Plan: 71-year-old female fully vaccinated with a history of bipolar disorder type 1 presents with inability to ambulate secondary to Depakote toxicity Depakote toxicity level went below normal restarted at a lower dose by the psych team Physical deconditioning Related to general deconditioning decreased exercise PT evaluation, plan to SNF placement Bipolar 1 disorder Seen by psych; they restart Depakote in a.m. and follow Hypertension Continue lisinopril at 20 mg daily. Adjust as indicated full code Lovenox Dispo, pending SNF placement. Quality Stroke Does the patient have a stroke diagnosis?: No VTE Prior VTE?: No VTE Risk Level:: Medical - moderate - high VTE Device Contraindication: Treatment Not Indicated VTE Drug Contraindication: N/A - Med Ordered
[2021-11-21] MEDS: Divalproex Sodium ER 500 MG TAB.ER.24H PO (20:23)
[2021-11-21] MEDS: OLANZapine 10 MG TABLET 20 MG PO (20:23)
[2021-11-22] VITALS (8 sets, daily range): BP systolic 96–119; BP diastolic 64–69; PULSE 78–104; RESP 16–18; TEMP 36.2–36.6; O2SAT 93–97
[2021-11-22] MEDS: lisinopriL 20 MG TABLET PO (08:56)
[2021-11-22] MEDS: Atorvastatin Calcium 80 MG TABLET PO (08:56)
[2021-11-22] MEDS: 0.9 % Sodium Chloride Flush 3 ML SYRINGE IVFLUSH ×2 (08:59→17:33)
--- NOTE | 2021-11-22 13:49 | P.PNIM_ITS ---
Subjective Subjective Date of Service: 11/22/21 Interval History: continues to improve. No acute events overnight Review of Systems denies chest pain Denies shortness of breath Denies nausea vomiting diarrhea Physical Exam Vital Signs: Vital Signs: Last Vital Signs Temp 97.4 F 11/22/21 11:24 Pulse 96 11/22/21 11:24 Resp 18 11/22/21 11:24 BP 103/68 11/22/21 11:24 Pulse Ox 97 11/22/21 11:24 BMI result Body Mass Index 23.1 Const: Other: awake alert oriented x3 no acute distress Resp: Other: clear to auscultation bilaterally. No rales rhonchi or wheezes Cardio: Other: no S4; positive S1-S2; no S3 murmurs rubs or gallops GI: Other: soft nontender nondistended with normoactive bowel sounds Neuro: Other: cranial nerves 2-12 grossly intact as tested motor is limited by toxicity movements are short and deliberate Extrem: Other: no edema bilaterally Objective Data Active Medications Acetaminophen (Acetaminophen 325 Mg Tablet) 650 mg PO Q6H PRN PRN Reason: Pain, Mild (Pain Scale 1-3) Atorvastatin Calcium (Atorvastatin Calcium 80 Mg Tablet) 80 mg PO DAILY [facility] Last Admin: 11/22/21 08:56 Dose: 80 mg Documented by: ABELARDO Divalproex Sodium (Divalproex Sodium Er 500 Mg Tab.Er.24h) 500 mg PO BEDTIME [facility] Last Admin: 11/21/21 20:23 Dose: 500 mg Documented by: KARTHIK Enoxaparin Sodium (Enoxaparin Sodium 40 Mg/0.4 Ml Syringe) 40 mg SUBCUT Q24H [facility] Last Admin: 11/21/21 20:27 Dose: Not Given Documented by: KARTHIK Non-Admin Reason: Patient Refused Lisinopril (Lisinopril 20 Mg Tablet) 20 mg PO DAILY [facility]; Protocol Last Admin: 11/22/21 08:56 Dose: 20 mg Documented by: ABELARDO Olanzapine (Olanzapine 10 Mg Tablet) 20 mg PO BEDTIME [facility] Last Admin: 11/21/21 20:23 Dose: 20 mg Documented by: KARTHIK Pharmacy Consult (Consult Rx Perform Med Rec) 1 each MISCELLANE ONCE PRN PRN Reason: Consult order Sodium Chloride (0.9 % Sodium Chloride Flush 3 Ml Syringe) 3 ml IVFLUSH QSHIFT [facility] Last Admin: 11/22/21 08:59 Dose: 3 ml Documented by: ABELARDO Trazodone HCl (Trazodone Hcl 50 Mg Tablet) 50 mg PO BEDTIME PRN PRN Reason: Insomnia Labs CBC & Chem 7: 11/20/21 05:44 11/20/21 05:44 Assessment and Plan (1) Valproic acid toxicity: Status: Acute (2) Bipolar 1 disorder: Status: Acute Assessment and Plan: 71-year-old female fully vaccinated with a history of bipolar disorder type 1 presents with inability to ambulate secondary to Depakote toxicity 1. Depakote toxicity Resolved. . Psych resume dosing at 500 at HS. Seen by PT. . . Recommend SNF less than 30 day stay anticipated. 2. Bipolar 1 disorder stable on current therapy 3. Hypertension Continue lisinopril at 20 mg daily. Adjust as indicated full code Lovenox Quality Stroke Does the patient have a stroke diagnosis?: No VTE Prior VTE?: No VTE Risk Level:: Medical - moderate - high VTE Device Contraindication: Treatment Not Indicated VTE Drug Contraindication: N/A - Med Ordered
--- NOTE | 2021-11-22 14:46 | MHC.CM.PN ---
PT DISCHARGING TO [facility] FOR STR PENDING INSURANCE AUTH, [facility] FOR BLS TRANSPORT
[2021-11-22 15:23] LABS: COVID-19 Test Negative (Negative)
[2021-11-22] MEDS: OLANZapine 10 MG TABLET 20 MG PO (20:31)
[2021-11-22] MEDS: Divalproex Sodium ER 500 MG TAB.ER.24H PO (20:32)
[2021-11-23 03:54] VITALS: BP 107/68; PULSE 92; RESP 19; TEMP 36.7; O2SAT 96
[2021-11-23] MEDS: 0.9 % Sodium Chloride Flush 3 ML SYRINGE IVFLUSH ×2 (05:31→08:45)
[2021-11-23 07:37] VITALS: BP 119/69; PULSE 88; RESP 16; TEMP 36.4; O2SAT 97
[2021-11-23] MEDS: lisinopriL 20 MG TABLET PO (08:45)
[2021-11-23] MEDS: Atorvastatin Calcium 80 MG TABLET PO (08:45)
--- NOTE | 2021-11-23 08:48 | P.DS_ITS ---
DS: Providers Provider Date of Service: 11/23/21 Date of admission: 11/17/21 18:06 Date of discharge: 11/23/21 Primary care physician: Chinyere Luna MD Consults: 11/17/21 15:00 Consult to Psychiatry Stat Consulting Provider: Elier Goldstein Reason for consultation: Valproic acid toxicity with mental status change Has provider been notified: Yes DS: Diagnosis Discharge Diagnosis (1) Valproic acid toxicity: Status: Acute (2) Bipolar 1 disorder: Status: Acute DS: Summary Hospital Course Hospital Course: 71-year-old female fully vaccinated presents with approximately 7 days of worsening fatigue and lethargy that culminated today and inability to walk or get out of bed.? She has been on Depakote 1500 mg daily x1 month.? In ER, Depakote level found to be 131.8.? At this time she will be admitted with diagnosis of Depakote toxicity.? All other lab work including ammonia level were unremarkable Hospital Course Admitted and given IV fluids overnight. Level dropped to 60.4 morning of 11/18/2021. On 11/19/2021, level 30.1. Seen by Psychiatry; started back on Depakote 500 mg extended release at bedtime. On admission, patient was extremely ?stiff? per her account. She was observed having difficulty sitting up in bed. Over the course the next several days, she began to regain her mobility and was able to walk with a walker. She was seen by Physical therapy, who stated she would benefit from short-term SNF. Her estimated length of stay would be 30 days or less. At this point, she is medically suitable for transfer to stay for short-term rehab and follow up with PCP and Psychiatry as outpatient. Her bipolar 1 disorder did not exacerbate with changes in level. Time Spent with Patient Time attestation: Total time spent providing and/or coordinating discharge services: Discharge coordination time: Greater than 30 minutes Quality: Stroke Does the patient have a stroke diagnosis?: No Physical Exam Vital Signs: Vital Signs: Last Vital Signs Temp 97.6 F 11/23/21 07:37 Pulse 88 11/23/21 07:37 Resp 16 11/23/21 07:37 BP 119/69 11/23/21 07:37 Pulse Ox 97 11/23/21 07:37 BMI result Body Mass Index 23.1 Const: Other: awake alert oriented x3 no acute distress Resp: Other: clear to auscultation bilaterally. No rales rhonchi or wheezes Cardio: Other: no S4; positive S1-S2; no S3 murmurs rubs or gallops GI: Other: soft nontender nondistended with normoactive bowel sounds Neuro: Other: cranial nerves 2-12 grossly intact as tested . Motor is 5/5 all extremities, sensation is intact. Cognition normal. Gait steady with w alker; movements much more fluid since admission Extrem: Other: no edema bilaterally DS: Data Data Completed and Pending Labs on day of discharge: Laboratory Results - last 24 hr 11/22/21 14:54 COVID-19 ([facility]) Negative COVID-19 Clin Com See Note Discharge Plan Discharge Patient Disposition: Xfer Inpatient Rehab Fac Discharge Diagnosis: Valproic acid toxicity Referrals: [facility] [Outside] - 1 Day (SHORT TERM REHAB) Chinyere Luna MD [Primary Care Provider] - 1 Week Discharge Medications: Continued divalproex 500 mg Tablet,Delayed Release (Dr/Ec) 500 mg PO DAILY 30 Days Qty: 30 RF: 0 olanzapine 20 mg tablet 20 mg PO BEDTIME Qty: 30 RF: 0 trazodone 50 mg tablet 1 tab PO BEDTIME PRN (Reason: Insomnia) 30 Days Qty: 30 RF: 0 lisinopril 20 mg tablet 1 tab PO DAILY 30 Days Qty: 30 RF: 0 atorvastatin 80 mg Tablet 80 mg PO DAILY RF: 0 Discharge Orders: Discharge Order (Routine); Ordered 11/23/21 Ordered By: Rex Burgess Diet: advance to usual diet Activity on Discharge: As tolerated Stand Alone Forms: Patient Portal Discharge page Care Plan Goals: As per SNF evaluation Health Concerns: Close monitoring of Depakote levels Plan of Treatment: Resumed Depakote as ordered; follow levels and response. Assessment: As above
--- NOTE | 2021-11-23 09:05 | MHC.CM.PN ---
PT DISCHARGING TO [facility] FOR STR AT 10AM W/[facility] FOR TRANSPORT
== END 2021-11-23 10:41 | DRG 948 ==
LOC: HO.ED 16:12 → HO.EDOVER 19:56 → HO.S3 11-19 08:00 → HO.EDOVER 11-21 12:12
PROVIDERS: Student in an Organized Health Care Education/Training Program; Admitting Provider Hospitalist; Emergency Provider Emergency Medicine; PCP Internal Medicine; Visit Provider Hospitalist
DX: R53.1 Weakness (principal); F31.9 Bipolar disorder, unspecified; I10 Essential (primary) hypertension; T42.6X5A Adverse effect of other antiepileptic and sedative-hypnotic drugs, initial encounter; Y92.9 Unspecified place or not applicable; Z20.822 Contact with and (suspected) exposure to COVID-19; Z79.899 Other long term (current) drug therapy
CPT/HCPCS: 36415; 71046; 80048; 80053; 80164; 80307; 81001; 82077; 82140; 82947; 83605; 84443; 85025; 85027; 87086; 87635; 93005; 96360; 97110; 97116; 97161; 99285; 99291; J1650

== ENCOUNTER 2021-11-24 06:32 | Outpatient (REF) | payer MEDICARE, SELFPAY ==
[2021-11-24 06:48] LABS: Basophils Percent Auto 0.4 % (0-2); Eosinophils Absolute Auto 0.3 X10*3/uL (0.0-0.4); Eosinophils Percent Auto 3.3 % (0-4); Hematocrit 33.8 % (37.0-47.0); Hemoglobin 10.9 g/dl (12.0-16.0); Imm Gran Abs Auto 0.07 X10*3/uL (0.00-0.03); Imm Gran Pct Auto 0.9 % (0.0-0.4); Lymphocytes Absolute Auto 1.5 X10*3/uL (1.2-4.9); Lymphocytes Percent Auto 19.2 % (20-40); MANUAL DIFF FLAG SCAN; Mean Corpuscular HGB Conc 32.2 g/dl (31.0-35.0); Mean Corpuscular Hemoglobin 29.1 pg (27.0-33.0); Mean Corpuscular Volume 90.4 fL (80.0-98.0); Mean Platelet Volume 9.2 fL (9.4-12.3); Monocytes Absolute Auto 1.8 X10*3/uL (0.1-1.2); Monocytes Percent Auto 22.8 % (2-11); Neutrophils Absolute Auto 4.2 x10*3/uL (2.0-8.3); Neutrophils Percent Auto 53.4 % (45-73); Platelet Count 183 X10*3/uL (160-400); Red Blood Count 3.74 X10*6/uL (4.20-5.50); Red Cell Distribution Width 13.6 % (11.0-16.0); SCAN SMEAR FLAG 1; White Blood Count 7.9 X10*3/uL (4.8-10.8)
[2021-11-24 07:11] LABS: Alanine Aminotransferase 15 U/L (0-31); Alkaline Phosphatase 58 U/L (39-117); Anion Gap 9 (12-20); Aspartate Amino Transferase 18 U/L (5-31); Bilirubin Total 0.4 mg/dL (0.0-1.0); Blood Urea Nitrogen 17 mg/dL (9-16); Calcium 8.2 mg/dL (8.4-10.2); Carbon Dioxide 29 mmol/L (22-29); Chloride 107 mmol/L (96-108); Estimated Glomerular Filt Rate > 60; Glucose Random 86 mg/dL (60-115); Potassium 3.4 mmol/L (3.3-5.1); Sodium 142 mmol/L (135-145); Total Protein 5.5 g/dL (6.5-8.0)
[2021-11-24 07:15] LABS: SLIDE REVIEW VERIFIED
== END 2021-11-24 06:33 | disposition home or self-care (01) ==
LOC: HO.MMNH1L 06:32
PROVIDERS: Visit Provider Family Medicine
DX: I10 Essential (primary) hypertension (principal); E78.5 Hyperlipidemia, unspecified
CPT/HCPCS: 36415; 80053; 85025

== ENCOUNTER 2021-11-26 06:59 | Outpatient (REF) | payer MEDICARE, SELFPAY ==
[2021-11-26 07:45] LABS: Valproate 55.2 mcg/mL (50.0-100.0)
== END 2021-11-26 07:00 | disposition home or self-care (01) ==
LOC: HO.MMNH1L 06:59
PROVIDERS: Visit Provider Family Medicine
DX: E78.5 Hyperlipidemia, unspecified (principal); T42.6X1D Poisoning by other antiepileptic and sedative-hypnotic drugs, accidental (unintentional), subsequent encounter
CPT/HCPCS: 36415; 80164

== ENCOUNTER 2021-11-29 00:18 | Outpatient (REF) | payer MEDICARE, SELFPAY ==
[2021-11-29 07:12] LABS: Hematocrit 32.9 % (37.0-47.0); Hemoglobin 10.4 g/dl (12.0-16.0); Mean Corpuscular HGB Conc 31.6 g/dl (31.0-35.0); Mean Corpuscular Hemoglobin 28.5 pg (27.0-33.0); Mean Corpuscular Volume 90.1 fL (80.0-98.0); Platelet Count 286 X10*3/uL (160-400); Red Blood Count 3.65 X10*6/uL (4.20-5.50); Red Cell Distribution Width 13.8 % (11.0-16.0); White Blood Count 9.4 X10*3/uL (4.8-10.8)
[2021-11-29 07:38] LABS: Anion Gap 11 (12-20); Blood Urea Nitrogen 16 mg/dL (9-16); Calcium 8.1 mg/dL (8.4-10.2); Carbon Dioxide 26 mmol/L (22-29); Chloride 111 mmol/L (96-108); Estimated Glomerular Filt Rate > 60; Glucose Random 72 mg/dL (60-115); Potassium 3.9 mmol/L (3.3-5.1); Sodium 144 mmol/L (135-145)
[2021-11-29 08:36] LABS: Valproate 51.8 mcg/mL (50.0-100.0)
== END 2021-11-29 00:19 | disposition home or self-care (01) ==
LOC: HO.MMNH1L 00:18
PROVIDERS: Visit Provider Family Medicine
DX: I10 Essential (primary) hypertension (principal); E78.5 Hyperlipidemia, unspecified; Z79.899 Other long term (current) drug therapy
CPT/HCPCS: 36415; 80048; 80164; 85027

== ENCOUNTER 2021-12-06 00:45 | Outpatient (REF) | payer MEDICARE, SELFPAY | END 2021-12-06 00:46 | disposition home or self-care (01) | LOC: HO.MMNH1L 00:45 | PROVIDERS: Visit Provider Family Medicine | DX: Z13.89 Encounter for screening for other disorder (principal) ==

== ENCOUNTER 2021-12-27 10:04 | Inpatient (IN) | payer MEDICARE, SELFPAY ==
[2021-12-27] VITALS (7 sets, daily range): BP systolic 86–134; BP diastolic 57–90; PULSE 96–113; RESP 12–18; TEMP 35.7–36.7; O2SAT 92–98; BMI 22.3
--- NOTE | 2021-12-27 | ECG_ITS ---
Test Reason : weakness Blood Pressure : / mmHG Vent. Rate : 102 BPM Atrial Rate : 102 BPM P-R Int : 106 ms QRS Dur : 068 ms QT Int : 336 ms P-R-T Axes : 059 047 022 degrees QTc Int : 437 ms Artifact in tracing Likely sinus rhythm Nonspecific ST and T wave abnormality Abnormal ECG When compared with ECG of 27-DEC-2021 12:31, Cannot compare due to poor quality. Referred By: Stephanie Salinas Electronically Signed By:MIGUEL CRAMER
--- NOTE | ~2021-12-27 | XR_ITS ---
EXAMINATION: ULTRASOUND VENOUS DUPLEX LEFT LEG. CHEST. CLINICAL INFORMATION: Swelling and pain. COMPARISON: None TECHNIQUE: Chest 2 views. Routine grayscale, color and Doppler imaging of left lower leg venous study is performed. FINDINGS: Chest: The lungs are hypoexpanded with platelike atelectasis right lung base. Rest of the lungs are clear. The heart size and pulmonary vascularity is normal. No gross bony abnormality seen. XR/XR chest 2V IMPRESSION: Platelike atelectasis right lung base. No acute cardiopulmonary process seen.
--- NOTE | ~2021-12-27 | CT_ITS ---
EXAMINATION: CT ANGIOGRAM OF THE CHEST WITH AND WITHOUT CONTRAST (CT PULMONARY ANGIOGRAM FOR PE) CLINICAL INFORMATION: Reason for Exam extensive DVT COMPARISON: Previous chest x-ray 12/27/2021 TECHNIQUE: Prior to contrast administration, noncontrast localization images were obtained. Subsequently, multidetector volumetric imaging was performed from the thoracic inlet to below the diaphragms following the administration of 65 mL Omnipaque 350 intravenous contrast. No contrast reaction reported Sagittal, coronal, and MIP oblique sagittal reformatted images were obtained on the CT workstation, uploaded to PACS, and reviewed. This CT examination was performed using dose optimization techniques as appropriate, variously including the following: *Automated exposure control *Adjustment of mA and/or kV according to patient size (this includes techniques or standardized protocols for targeted exams where dose is matched to indication/reason for exam; i.e. extremities or head) *Use of iterative reconstruction technique Total exam dose-length product 179 mGy-cm FINDINGS: QUALITY OF STUDY/CONTRAST BOLUS: Satisfactory. PULMONARY ARTERIES: There are diffuse segmental and subsegmental bilateral pulmonary emboli. THORACIC AORTA: No aneurysm or dissection. LUNG: There is atelectasis in the right lower lobe. PLEURA: There is a trace right pleural effusion pleural thickening. There is no left pleural effusion. There is no pneumothorax. MEDIASTINUM: Normal heart size. No pericardial effusion. No hilar or mediastinal lymphadenopathy. No evidence of septal bowing or right heart strain. CHEST WALL/AXILLA: No axillary or internal mammary lymphadenopathy. OSSEOUS STRUCTURES: No acute or suspicious osseous abnormality. There are degenerative changes of the spine. UPPER ABDOMEN: There are several low-attenuation liver lesions. The largest measure 1 x 2 cm in lateral segment of the left lobe axial image 42 series 5. This may represent cysts. There is a 5 mm low-attenuation lesion in the neck of the pancreas axial image 47 series 5. Difficult to characterize. There may be diverticulosis of the colon.. No reflux of contrast into the hepatic veins to suggest elevated right heart pressures. CT/CT angio chest PE protocol IMPRESSION: Bilateral pulmonary emboli. VTE: positive Findings were communicated to Brandee Driver by telephone on 12/27/2021 at 1:15 PM.
--- NOTE | ~2021-12-27 | US_ITS ---
EXAMINATION: ULTRASOUND VENOUS DUPLEX LEFT LEG. CHEST. CLINICAL INFORMATION: Swelling and pain. COMPARISON: None TECHNIQUE: Chest 2 views. Routine grayscale, color and Doppler imaging of left lower leg venous study is performed. FINDINGS: Chest: The lungs are hypoexpanded with platelike atelectasis right lung base. Rest of the lungs are clear. The heart size and pulmonary vascularity is normal. No gross bony abnormality seen. US/US venous duplex LE LT IMPRESSION: Platelike atelectasis right lung base. No acute cardiopulmonary process seen.
--- NOTE | ~2021-12-27 | US_ITS ---
EXAMINATION: US RETROPERITONEAL LIMITED (RENAL ONLY) CLINICAL INFORMATION: Urinary retention. COMPARISON: None TECHNIQUE: Grayscale and color Doppler imaging was obtained of the bilateral kidneys. FINDINGS: RIGHT KIDNEY: 9.9 x 3.9 x 3.2 cm (SAG x AP x TRV). The kidney is normal in size, contour, and echogenicity. Renal cortical thickness is normal. No calculi or focal parenchymal lesions. No hydronephrosis. LEFT KIDNEY: 10.0 x 4.7 x 4.3 cm (SAG x AP x TRV). The kidney is normal in size, contour, and echogenicity. Renal cortical thickness is normal. No calculi or focal parenchymal lesions. No hydronephrosis. US/US renal BI IMPRESSION: No renal calculi or hydronephrosis of either kidney.
--- NOTE | 2021-12-27 10:21 | ECG_ITS ---
Test Reason : WEAKNESS Blood Pressure : / mmHG Vent. Rate : 104 BPM Atrial Rate : 104 BPM P-R Int : 130 ms QRS Dur : 062 ms QT Int : 426 ms P-R-T Axes : 030 030 035 degrees QTc Int : 560 ms Significant artifact in tracing Not suitable for interpretation When compared with ECG of 17-NOV-2021 13:51, due to poor quality, cannot compare Referred By: Narcisa Driver Electronically Signed By:MIGULE CRAMER
--- NOTE | 2021-12-27 10:24 | ED_ITS ---
HPI - Weakness General Chief complaint: Weakness Stated complaint: INCREASED WEAKNESS Time Seen by Provider: 12/27/21 10:05 Source: EMS Mode of arrival: EMS Limitations: no limitations History of Present Illness HPI Narrative: 71-year-old female with a history of bipolar disease, hypertension, hyperlipidemia here with reports of generalized weakness. Patient provides a limited history. Additional history is provided by EMS. Per report the patient has had increasing weakness over the last 1 week with poor p.o. intake. She called her therapist today but was not willing to speak to her over the phone. The therapist was concerned for the patient's safety and therefore EMS was called. The patient denies any suicidal homicidal ideations. She tells me she has been medication compliant with all of her medications. She tells me she has had generalized weakness with poor ambulation and poor p.o. intake over the last 1 week. No chest pain, abdominal pain, vomiting, headache or head trauma, urinary problems. Of note the patient has left lower extremity pain and swelling. She denies any known injury or trauma. She is unable to tell me how long it has been like this. She is not on any anticoagulation Related Data Home Medications Medication Instructions Recorded Confirmed atorvastatin 80 mg tablet 80 mg PO DAILY 11/17/21 12/27/21 divalproex 250 mg tablet,delayed 250 mg PO DAILY 12/27/21 12/27/21 release divalproex 500 mg tablet,delayed 500 mg PO BEDTIME 12/27/21 12/27/21 release Previous Rx's Medication Instructions Recorded lisinopril 20 mg tablet 1 tab PO DAILY 30 Days #30 tab 11/08/21 olanzapine 20 mg tablet 20 mg PO BEDTIME #30 tab 11/08/21 trazodone 50 mg tablet 1 tab PO BEDTIME PRN 30 Days #30 11/08/21 tab Allergies Allergy/AdvReac Type Severity Reaction Status Date / Time No Known Allergies Allergy Unverified 08/13/20 17:06 [No Known Allergies*] Review of Systems Verdana 4l Review of Systems: Yes all other systems are reviewed and Verdana 4d are negative Verdana 4l Constitutional: Verdana 4d Constitutional: Verdana 4d Verdana 4d Reports no additional constitutional complaints, Denies body ache(s), Denies chills, Denies fever(s), Denies headache(s), Reports poor appetite and Reports weakness Verdana 4l Eyes: Verdana 4d Verdana 4d Eyes: Verdana 4d Reports no additional eye complaints and Denies change in vision Verdana 4l ENT: Verdana 4d Reports system reviewed and no additional complaints, except as documented, Denies dizziness, Denies headache(s), Denies nasal congestion, Denies nasal discharge and Denies neck pain Verdana 4l Cardiovascular: Verdana 4d Cardiovascular: Verdana 4d Verdana 4d Reports no additional cardiovascular complaints, Denies chest pain, Reports leg edema and Denies dyspnea Verdana 4l Respiratory: Verdana 4d Verdana 4d Respiratory: Verdana 4d Reports no additional respiratory complaints, Denies cough and Denies dyspnea Verdana 4l Gastrointestinal: Verdana 4d Gastrointestinal: Verdana 4d Verdana 4d Reports no additional gastrointestinal complaints, Denies abdominal pain, Denies diarrhea, Denies nausea and Denies vomiting Verdana 4l Genitourinary: Verdana 4d Verdana 4d Genitourinary: Verdana 4d Reports no additional female genitourinary complaints and Denies urinary incontinence Verdana 4l Musculoskeletal: Verdana 4d Musculoskeletal: Verdana 4d Verdana 4d Reports no additional musculoskeletal complaints, Denies back pain, Denies arthralgias, Denies joint swelling, Denies neck pain, Denies numbness and Denies tingling Verdana 4l Integumentary/Breasts: Verdana 4d Skin/Breast: Verdana 4d Verdana 4d Reports system reviewed and no additional complaints, except as docu and Denies rash Verdana 4l Neurologic: Verdana 4d Reports system reviewed and no additional complaints, except as documented, Denies dizziness, Denies headache(s), Denies numbness, Denies tingling and Reports weakness PMFSH Past Medical History Attestation statement: The following information was validated with the patient. Source: old records reviewed and nursing notes reviewed Medical History Bipolar 1 disorder Social History Social History Household Members: None Housing: House Housing Other:: triler Do you presently have visiting nurse or other home services: No Alcohol intake: current Alcohol intake frequency: a few times a month Alcohol type: other Patient Tobacco Use Status: Never used Tobacco e-Cigarette/Vaping Use: Never Used Second Hand Smoke Exposure: No Advance Directives: Yes Advance Directives on File: Yes Advance Directives Date on File: 03/19/21 service: No Current occupational status: disabled Sexual orientation: Straight/Heterosexual Physical Exam Verdana 4l Vital Signs: Verdana 4d Verdana 4d Vital Signs: Verdana 4d Verdana 4Bd Last Vital Signs Verdana 4d 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 New 4d Temp 97.5 F 12/27/21 10:22 Aircraft Maintenance Technician New 4d Pulse 99 12/27/21 13:01 Aircraft Maintenance Technician New 4d Resp 16 12/27/21 13:01 BP 114/84 12/27/21 13:01 Pulse Ox 95 12/27/21 11:42 BMI result Body Mass Index 22.3 Const: General: cooperative, healthy appearing, comfortable and no acute distress Orientation/consciousness: patient oriented x3 Limitations: no limitations HENMT: Other: +tacky mucous membranes Head: Yes normal to inspection Ears: hearing grossly normal bilaterally and TM's normal bilaterally General nose exam: Normal external nose present Face and sinus: Yes normal facial exam Mouth: Normal oral and palatal mucosa present Throat: Yes posterior oropharynx normal Eyes: General: appearance normal, both eyes and all related structures Pupils: Equal, round and reactive pupils present Neck: Neck: Yes normal visual inspection, Yes full ROM, Yes no lymphadenopathy and Yes no meningeal signs Chest: Chest palpation & inspection: normal inspection of the chest Resp: Effort & Inspection: normal respiratory effort Auscultation: clear to auscultation bilaterally Cardio: Rate: regular rate Rhythm: regular rhythm Peripheral pulses: Peripheral pulses 2+ throughout GI: Inspection: Yes normal to inspection Palpation (GI): Soft to palpation and nontender Auscultation: normal bowel sounds Back/Spine/Pelvis: Thoracic/Lumbar Spine: thoracic and lumbar spine normal to inspection Skin: General skin exam: no rashes or lesions noted Neuro: General: patient oriented x3, moves all extremities (Moves x4 equally. +generally weak), no meningeal signs and normal sensation to monofilament Cranial nerves: Yes CN's II-XII intact bilaterally and Yes Equal, round and reactive pupils present Extrem: Other: To the left leg there is swelling, tenderness noted. +distal pulse noted. No warmth or redness General: Yes normal to inspection Course Course Course Narrative: 71 yo female with a history of bipolar disorder, hypertension and hyperlipidemia here with reports of generalized weakness with poor p.o. intake over the last week. On arrival the patient is also noted to have left lower extremity swelling and pain. No known history of DVTs. She is not on any anticoagulation. No shortness of breath, cough, chest pain, fevers reported. Patient does appear dehydrated with tacky mucous membranes. Her initial blood pressure is 86 systolic which is likely secondary to poor p.o. intake and dehydration and not for infection. Will give fluids and gently hydrate. Will also need labs, UA, chest x-ray, EKG, ultrasound of left lower extremity to rule out DVT 1100-extensive DVT to the left lower extremity. Patient is not a reliable historian, will check CTA to rule out PE 1315-Call from radiology. +bilateral PE MDM - Weakness Differential Diagnosis Differential diagnosis: Likely UTI, anemia, hypoglycemia, hypothyroidism, rhabdomyolysis, sepsis and dehydration Medical Records Attestation: I reviewed the patient's medical records. Lab Data Attestation: I reviewed the patient's lab results. Result diagrams: 12/27/21 11:27 12/27/21 11:27 Labs: Lab Results 12/27/21 12/27/21 12/27/21 Range/Units 11:27 11:27 11:27 WBC 11.7 H (4.8-10.8) X10*3/uL RBC 4.40 D (4.20-5.50) X10*6/uL Hgb 12.7 D (12.0-16.0) g/dl Hct 40.4 D (37.0-47.0) % MCV 91.8 (80.0-98.0) fL MCH 28.9 (27.0-33.0) pg MCHC 31.4 (31.0-35.0) g/dl RDW 15.6 (11.0-16.0) % Plt Count 130 L D (160-400) X10*3/uL MPV 8.8 L (9.4-12.3) fL Immature Gran % (Auto) 0.9 H (0.0-0.4) % Neut % (Auto) 78.1 H (45-73) % Lymph % (Auto) 6.8 L (20-40) % [place] % (Auto) 14.1 H (2-11) % Eos % (Auto) 0.0 (0-4) % Baso % (Auto) 0.1 (0-2) % Lymph # (Auto) 0.8 L (1.2-4.9) X10*3/uL [place] # (Auto) 1.7 H (0.1-1.2) X10*3/uL Eos # (Auto) 0.0 (0.0-0.4) X10*3/uL Baso # (Auto) 0.0 (0.0-0.2) X10*3/uL Abs Immat Gran (auto) 0.10 H (0.00-0.03) X10*3/uL Absolute Neuts (auto) 9.2 H (2.0-8.3) x10*3/uL Absolute Nucleated RBC 0.000 (0.0-0.012) X10*3/uL Nucleated RBC % (auto) 0.0 (0.0-0.2) /100WBC Smear Tech's Comments VERIFIED PT 12.7 (9.9-13.0) SEC INR 1.1 (0.9-1.1) APTT (24.1-38.0) SEC Sodium 143 (135-145) mmol/L Potassium 4.2 (3.3-5.1) mmol/L Chloride 105 (96-108) mmol/L Carbon Dioxide 27 (22-29) mmol/L Anion Gap 15 (12-20) BUN 29 H D (9-16) mg/dL Creatinine 1.08 (0.5-1.4) mg/dL Estim Creat Clear Calc 36.0 Estimated GFR 50 Random Glucose 142 H (60-115) mg/dL Lactic Acid (0.5-2.0) mmol/L Calcium 9.1 D (8.4-10.2) mg/dL Total Bilirubin 0.5 (0.0-1.0) mg/dL Direct Bilirubin 0.2 (0.0-0.5) mg/dL AST 47 H D (5-31) U/L ALT 33 H (0-31) U/L Alkaline Phosphatase 75 D (39-117) U/L Troponin I High Sens (<3.5-17.0) ng/L Total Protein 7.6 D (6.5-8.0) g/dL Albumin 3.8 D (3.5-5.0) g/dL Urine Color Urine Appearance Urine pH (5.0-8.0) Ur Specific [place] (1.005-1.025) Urine Protein (NEG-TRACE) MG/DL Urine Glucose (UA) (NEG) MG/DL Urine Ketones (NEG) MG/DL Urine Blood (NEG) Urine Nitrite (NEG) Ur Leukocyte Esterase (NEG) Acetaminophen < 1 (<30) mcg/mL COVID-19 ([facility]) (Negative) COVID-19 Clin Com 12/27/21 12/27/21 12/27/21 Range/Units 11:27 11:27 11:27 WBC (4.8-10.8) X10*3/uL RBC (4.20-5.50) X10*6/uL Hgb (12.0-16.0) g/dl Hct (37.0-47.0) % MCV (80.0-98.0) fL MCH (27.0-33.0) pg MCHC (31.0-35.0) g/dl RDW (11.0-16.0) % Plt Count (160-400) X10*3/uL MPV (9.4-12.3) fL Immature Gran % (Auto) (0.0-0.4) % Neut % (Auto) (45-73) % Lymph % (Auto) (20-40) % [place] % (Auto) (2-11) % Eos % (Auto) (0-4) % Baso % (Auto) (0-2) % Lymph # (Auto) (1.2-4.9) X10*3/uL [place] # (Auto) (0.1-1.2) X10*3/uL Eos # (Auto) (0.0-0.4) X10*3/uL Baso # (Auto) (0.0-0.2) X10*3/uL Abs Immat Gran (auto) (0.00-0.03) X10*3/uL Absolute Neuts (auto) (2.0-8.3) x10*3/uL Absolute Nucleated RBC (0.0-0.012) X10*3/uL Nucleated RBC % (auto) (0.0-0.2) /100WBC Smear Tech's Comments PT (9.9-13.0) SEC INR (0.9-1.1) APTT 28.5 (24.1-38.0) SEC Sodium (135-145) mmol/L Potassium (3.3-5.1) mmol/L Chloride (96-108) mmol/L Carbon Dioxide (22-29) mmol/L Anion Gap (12-20) BUN (9-16) mg/dL Creatinine (0.5-1.4) mg/dL Estim Creat Clear Calc Estimated GFR Random Glucose (60-115) mg/dL Lactic Acid 1.5 (0.5-2.0) mmol/L Calcium (8.4-10.2) mg/dL Total Bilirubin (0.0-1.0) mg/dL Direct Bilirubin (0.0-0.5) mg/dL AST (5-31) U/L ALT (0-31) U/L Alkaline Phosphatase (39-117) U/L Troponin I High Sens 51.8 H* (<3.5-17.0) ng/L Total Protein (6.5-8.0) g/dL Albumin (3.5-5.0) g/dL Urine Color Urine Appearance Urine pH (5.0-8.0) Ur Specific [place] (1.005-1.025) Urine Protein (NEG-TRACE) MG/DL Urine Glucose (UA) (NEG) MG/DL Urine Ketones (NEG) MG/DL Urine Blood (NEG) Urine Nitrite (NEG) Ur Leukocyte Esterase (NEG) Acetaminophen (<30) mcg/mL COVID-19 ([facility]) (Negative) COVID-19 Clin Com 12/27/21 12/27/21 Range/Units 11:33 13:11 WBC (4.8-10.8) X10*3/uL RBC (4.20-5.50) X10*6/uL Hgb (12.0-16.0) g/dl Hct (37.0-47.0) % MCV (80.0-98.0) fL MCH (27.0-33.0) pg MCHC (31.0-35.0) g/dl RDW (11.0-16.0) % Plt Count (160-400) X10*3/uL MPV (9.4-12.3) fL Immature Gran % (Auto) (0.0-0.4) % Neut % (Auto) (45-73) % Lymph % (Auto) (20-40) % [place] % (Auto) (2-11) % Eos % (Auto) (0-4) % Baso % (Auto) (0-2) % Lymph # (Auto) (1.2-4.9) X10*3/uL [place] # (Auto) (0.1-1.2) X10*3/uL Eos # (Auto) (0.0-0.4) X10*3/uL Baso # (Auto) (0.0-0.2) X10*3/uL Abs Immat Gran (auto) (0.00-0.03) X10*3/uL Absolute Neuts (auto) (2.0-8.3) x10*3/uL Absolute Nucleated RBC (0.0-0.012) X10*3/uL Nucleated RBC % (auto) (0.0-0.2) /100WBC Smear Tech's Comments PT (9.9-13.0) SEC INR (0.9-1.1) APTT (24.1-38.0) SEC Sodium (135-145) mmol/L Potassium (3.3-5.1) mmol/L Chloride (96-108) mmol/L Carbon Dioxide (22-29) mmol/L Anion Gap (12-20) BUN (9-16) mg/dL Creatinine (0.5-1.4) mg/dL Estim Creat Clear Calc Estimated GFR Random Glucose (60-115) mg/dL Lactic Acid (0.5-2.0) mmol/L Calcium (8.4-10.2) mg/dL Total Bilirubin (0.0-1.0) mg/dL Direct Bilirubin (0.0-0.5) mg/dL AST (5-31) U/L ALT (0-31) U/L Alkaline Phosphatase (39-117) U/L Troponin I High Sens (<3.5-17.0) ng/L Total Protein (6.5-8.0) g/dL Albumin (3.5-5.0) g/dL Urine Color DK YELLOW Urine Appearance HAZY Urine pH 6.0 (5.0-8.0) Ur Specific [place] >= 1.030 H (1.005-1.025) Urine Protein TRACE (NEG-TRACE) MG/DL Urine Glucose (UA) NEG (NEG) MG/DL Urine Ketones 5 (NEG) MG/DL Urine Blood NEG (NEG) Urine Nitrite NEG (NEG) Ur Leukocyte Esterase NEG (NEG) Acetaminophen (<30) mcg/mL COVID-19 ([facility]) Negative (Negative) COVID-19 Clin Com See Note Imaging Data Chest x-ray: Attestation: I personally reviewed and interpreted this imaging study as follows: Radiologist's impression: Chest: The lungs are hypoexpanded with platelike atelectasis right lung base. Rest of the lungs are clear. The heart size and pulmonary vascularity is normal. No gross bony abnormality seen.? US/US venous duplex LE LT IMPRESSION: Platelike atelectasis right lung base. No acute cardiopulmonary process seen Venous US: Attestation: I personally reviewed and interpreted this imaging study as follows: Radiologist's impression: FINDINGS: There is acute thrombus seen in the left external iliac, greater saphenous, common femoral, profunda femoral, popliteal and the gastroc veins including the posterior tibial and peroneal veins. IMPRESSION: Acute DVT entire left lower leg from left external iliac to left peroneal veins. CT scan - chest: Attestation: I personally reviewed and interpreted this imaging study as follows: Radiologist's impression: FINDINGS: QUALITY OF STUDY/CONTRAST BOLUS: Satisfactory. PULMONARY ARTERIES: There are diffuse segmental and subsegmental bilateral pulmonary emboli. THORACIC AORTA: No aneurysm or dissection. LUNG: There is atelectasis in the right lower lobe. PLEURA: There is a trace right pleural effusion pleural thickening. There is no left pleural effusion. There is no pneumothorax. MEDIASTINUM: Normal heart size.? No pericardial effusion.? No hilar or mediastinal lymphadenopathy.? No evidence of septal bowing or right heart strain. CHEST WALL/AXILLA: No axillary or internal mammary lymphadenopathy. OSSEOUS STRUCTURES: No acute or suspicious osseous abnormality. There are degenerative changes of the spine. UPPER ABDOMEN: There are several low-attenuation liver lesions. The largest measure 1 x 2 cm in lateral segment of the left lobe axial image 42 series 5. This may represent cysts. There is a 5 mm low-attenuation lesion in the neck of the pancreas axial image 47 series 5. Difficult to characterize. There may be diverticulosis of the colon.. No reflux of contrast into the hepatic veins to suggest elevated right heart pressures. CT/CT angio chest PE protocol IMPRESSION: Bilateral pulmonary emboli. ? VTE: positive ECG Data Attestation: I personally reviewed and interpreted this ECG as follows: ECG interpretation date: 12/27/21 ECG interpretation time: 12:31 Interpretation: Unable to interpret due to underlying tremor Discharge Plan Discharge Clinical Impression: Pulmonary emboli, Acute deep vein thrombosis (DVT) of left lower extremity Patient Disposition: Admitted As Inpatient
[2021-12-27] MEDS: 0.9 % Sodium Chloride 1,608 ML 1608 ML IV (11:35)
[2021-12-27 11:36] LABS: Basophils Percent Auto 0.1 % (0-2); Hematocrit 40.4 % (37.0-47.0); Hemoglobin 12.7 g/dl (12.0-16.0); Imm Gran Pct Auto 0.9 % (0.0-0.4); Lymphocytes Absolute Auto 0.8 X10*3/uL (1.2-4.9); Lymphocytes Percent Auto 6.8 % (20-40); MANUAL DIFF FLAG SCAN; Mean Corpuscular HGB Conc 31.4 g/dl (31.0-35.0); Mean Corpuscular Hemoglobin 28.9 pg (27.0-33.0); Mean Corpuscular Volume 91.8 fL (80.0-98.0); Mean Platelet Volume 8.8 fL (9.4-12.3); Monocytes Absolute Auto 1.7 X10*3/uL (0.1-1.2); Monocytes Percent Auto 14.1 % (2-11); Neutrophils Absolute Auto 9.2 x10*3/uL (2.0-8.3); Neutrophils Percent Auto 78.1 % (45-73); Platelet Count 130 X10*3/uL (160-400); Red Cell Distribution Width 15.6 % (11.0-16.0); SCAN SMEAR FLAG 1; White Blood Count 11.7 X10*3/uL (4.8-10.8)
[2021-12-27 11:43] LABS: INTERNATIONAL NORM RATIO 1.1 (0.9-1.1); Prothrombin Time 12.7 SEC (9.9-13.0)
[2021-12-27 11:45] LABS: Partial Thromboplastin Time 28.5 SEC (24.1-38.0)
[2021-12-27 11:47] LABS: Lactic Acid 1.5 mmol/L (0.5-2.0)
[2021-12-27 11:55] LABS: Alanine Aminotransferase 33 U/L (0-31); Albumin Level 3.8 g/dL (3.5-5.0); Alkaline Phosphatase 75 U/L (39-117); Anion Gap 15 (12-20); Aspartate Amino Transferase 47 U/L (5-31); Bilirubin Direct 0.2 mg/dL (0.0-0.5); Bilirubin Total 0.5 mg/dL (0.0-1.0); Blood Urea Nitrogen 29 mg/dL (9-16); Calcium 9.1 mg/dL (8.4-10.2); Carbon Dioxide 27 mmol/L (22-29); Chloride 105 mmol/L (96-108); Estimated Glomerular Filt Rate 50; Glucose Random 142 mg/dL (60-115); Potassium 4.2 mmol/L (3.3-5.1); Sodium 143 mmol/L (135-145); Total Protein 7.6 g/dL (6.5-8.0)
[2021-12-27 12:01] LABS: Troponin-I High Sensitivity 51.8 ng/L (<3.5-17.0)
[2021-12-27 12:02] LABS: COVID-19 Test Negative (Negative)
[2021-12-27 12:06] LABS: Acetaminophen LAB < 1 mcg/mL (<30)
[2021-12-27 12:07] LABS: SLIDE REVIEW VERIFIED
[2021-12-27] MEDS: iohexoL 350 MG/ML 100 ML INFUS..BTL IV (12:21)
--- NOTE | 2021-12-27 13:17 | PHA.MEDREC ---
Pharmacy Consult ? Medication Reconciliation Pharmacy has completed the medication reconciliation. Confirmed medication with patient's neighbor Omid. He give patient her night time medications. He reports the she takes divalproex 500 mg 1 tablet Qhs however the prescription is for 2 tablet QHS. Suzie Joe, PharmD
[2021-12-27 13:21] LABS: Appearance Urine HAZY; Color Urine DK YELLOW; Glucose Urine UA NEG (NEG); Leukocyte Esterase Urine NEG (NEG); Nitrite Urine NEG (NEG); Specific Gravity - Urine >= 1.030 (1.005-1.025); Urine Blood NEG (NEG); Urine Ketones 5 MG/DL (NEG); Urine Protein TRACE MG/DL (NEG-TRACE)
[2021-12-27 13:41] LABS: Amphetamine Screen Urine Not Detected (Not Detect); Barbiturates, Urine Not Detected (Not Detect); Benzodiazepines Screen Urine Not Detected (Not Detect); Cannabinoid Screen Urine Not Detected (Not Detect); Cocaine Screen Urine Not Detected (Not Detect); Fentanyl, urine Not Detected (Not Detect); Opiate Screen Urine Not Detected (Not Detect); Phencyclidine Screen Urine Not Detected (Not Detect)
[2021-12-27 13:43] LABS: Ethanol < 10 mg/dL
[2021-12-27] MEDS: Enoxaparin Sodium 60 MG/0.6 ML SYRINGE 55 MG SUBCUT (13:44)
[2021-12-27 13:54] LABS: Valproate 112.3 mcg/mL (50.0-100.0)
--- NOTE | 2021-12-27 14:02 | PC.NURSE ---
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 pt re-oriented to place and time, she continued to have paranoid thoughts
[2021-12-27 14:46] LABS: Troponin-I High Sensitivity 50.8 ng/L (<3.5-17.0)
--- NOTE | 2021-12-27 14:58 | P.HPHOSP_ITS ---
History of Present Illness Date of Service: 12/27/21 Attending physician on admission: Stephanie Salinas Chief Complaint: generalized weakness/ left lower extremity pain and swelling 71-year-old female patient past medical history of bipolar disorder, recently discharged from [facility] after being treated for Depakote toxicity, patient was sent to short-term rehab on low dose of Depakote, patient returned to [facility] today due to increasing weakness with decreased by mouth i ntake, decreased ambulation symptoms ongoing for greater than a week, patient also complained of left leg swelling and pain, patient called her therapist but was not willing to speak with her on the phone therefore therapist got concerned and EMS was called, at present patient complaining of feeling cold otherwise denies chest pain, no palpitations, denies shortness of breath, denies nausea, vomiting, abdominal pain headache or dizziness, workup in the emergency room showed extensive left lower extremity DVT and bilateral PE, also noted to have elevated Depakote level and elevated troponin. Review of Systems Verdana 4l Review of Systems: Verdana 4d Verdana 4d General no headache, no dizziness, no fever chills. CVS no chest pain, no palpitation. Respiratory no cough, no sob. Gastrointestinal no nausea no vomiting, no abdominal pain no urinary symptoms psych withdrawn, not wanting to communicatecommunicate much Yes all other systems are reviewed and are negative [facility] Medical History Bipolar 1 disorder Pertinent family history: patient withdrawn not answering questions regarding family history Social History Household Members: None Housing: House Housing Other:: triler Do you presently have visiting nurse or other home services: Yes Alcohol intake: current Alcohol intake frequency: a few times a month Alcohol type: other Patient Tobacco Use Status: Never used Tobacco e-Cigarette/Vaping Use: Never Used Second Hand Smoke Exposure: No Use of substances other than those prescribed or required for medical reasons: No Currently Displaying Signs/Symptoms of Drug Intoxication Withdrawal: No Have you been hit, kicked, punched, or otherwise hurt by someone within the past year? If so, by whom?: No Do you feel safe in your current relationship?: Yes Is there a partner from a previous relationship who is making you feel unsafe now?: No Are you made to feel afraid or neglected: No Advance Directives: Yes Advance Directives on File: Yes Advance Directives Date on File: 03/19/21 Do you have thoughts of harming others: None Do you have a plan to hurt others: No Plan Recently lost weight without trying: No Eating poorly because of decreased appetite: No Nutrition Risks: No Nutritional Risk service: No Current occupational status: disabled Sexual orientation: Straight/Heterosexual Meds Allergies Allergy/AdvReac Type Severity Reaction Status Date / Time No Known Allergies Allergy Unverified 08/13/20 17:06 [No Known Allergies*] Active Medications: Current Medications Acetaminophen (Acetaminophen 325 Mg Tablet) 650 mg PO Q6H PRN PRN Reason: Pain, Mild (Pain Scale 1-3) Atorvastatin Calcium (Atorvastatin Calcium 80 Mg Tablet) 80 mg PO DAILY RAFAELA Olanzapine (Olanzapine 10 Mg Tablet) 20 mg PO BEDTIME RAFAELA Ondansetron HCl (Ondansetron Hcl 4 Mg/2 Ml Vial) 4 mg IVPUSH Q8H PRN PRN Reason: Nausea and Vomiting Pharmacy Consult (Consult Rx Perform Med Rec) 1 each MISCELLANE ONCE PRN PRN Reason: Consult order Sodium Chloride (0.9 % Sodium Chloride Flush 3 Ml Syringe) 3 ml IVFLUSH QSHIFT RAFAELA Trazodone HCl (Trazodone Hcl 50 Mg Tablet) 50 mg PO BEDTIME PRN PRN Reason: Insomnia Home Medications Medication Instructions Recorded Confirmed Last Taken Type atorvastatin 80 80 mg PO DAILY 11/17/21 12/27/21 12/27/21 History mg tablet divalproex 250 mg 250 mg PO DAILY 12/27/21 12/27/21 12/27/21 History tablet,delayed release divalproex 500 mg 500 mg PO 12/27/21 12/27/21 12/26/21 History tablet,delayed BEDTIME release Physical Exam Verdana 4l Vital Signs and Narrative: Verdana 4d Verdana 4d Vital Signs: Verdana 4d Verdana 4Bd Last Vital Signs Verdana 4d [employer] 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 HEENT pupil equal round reactive to light and accommodation Neck supple no JVD. CVS regular rate rhythm, Respiratory lungs clear to auscultation, no respiratory distress, no wheeze, no rhonchi. Gastrointestinal abdomen soft, nontender, bowel sounds audible Extremities left lower extremity significantly swollen extending from left foot to thigh, cool to touch good peripheral pulses Neuro nonfocal ,speech clear. Results Labs CBC and Chem 7: 12/28/21 07:03 12/27/21 11:27 Labs: Laboratory Results - last 24 hr 12/27/21 12/27/21 12/27/21 11:27 11:27 11:27 MCV 91.8 MCH 28.9 MCHC 31.4 RDW 15.6 Plt Count 130 L D MPV 8.8 L Immature Gran % (Auto) 0.9 H Neut % (Auto) 78.1 H Lymph % (Auto) 6.8 L [place] % (Auto) 14.1 H Eos % (Auto) 0.0 Baso % (Auto) 0.1 Lymph # (Auto) 0.8 L [place] # (Auto) 1.7 H Eos # (Auto) 0.0 Baso # (Auto) 0.0 Abs Immat Gran (auto) 0.10 H Absolute Neuts (auto) 9.2 H Absolute Nucleated RBC 0.000 Nucleated RBC % (auto) 0.0 Smear Tech's Comments VERIFIED PT 12.7 INR 1.1 APTT Anion Gap 15 Estim Creat Clear Calc 36.0 Estimated GFR 50 Random Glucose 142 H Lactic Acid Calcium 9.1 D Total Bilirubin 0.5 Direct Bilirubin 0.2 AST 47 H D ALT 33 H Alkaline Phosphatase 75 D Troponin I High Sens Total Protein 7.6 D Albumin 3.8 D Urine Color Urine Appearance Urine pH Ur Specific [place] Urine Protein Urine Glucose (UA) Urine Ketones Urine Blood Urine Nitrite Ur Leukocyte Esterase Urine Opiates Screen Urine Fentanyl Screen Acetaminophen < 1 Ur Barbiturates Screen Valproic Acid Ur Phencyclidine Scrn Ur Amphetamines Screen U Benzodiazepines Scrn Urine Cocaine Screen U Marijuana (THC) Screen Ethyl Alcohol COVID-19 ([facility]) COVID-19 Clin Com 12/27/21 12/27/21 12/27/21 11:27 11:27 11:27 MCV MCH MCHC RDW Plt Count MPV Immature Gran % (Auto) Neut % (Auto) Lymph % (Auto) [place] % (Auto) Eos % (Auto) Baso % (Auto) Lymph # (Auto) [place] # (Auto) Eos # (Auto) Baso # (Auto) Abs Immat Gran (auto) Absolute Neuts (auto) Absolute Nucleated RBC Nucleated RBC % (auto) Smear Tech's Comments PT INR APTT 28.5 Anion Gap Estim Creat Clear Calc Estimated GFR Random Glucose Lactic Acid 1.5 Calcium Total Bilirubin Direct Bilirubin AST ALT Alkaline Phosphatase Troponin I High Sens 51.8 H* Total Protein Albumin Urine Color Urine Appearance Urine pH Ur Specific [place] Urine Protein Urine Glucose (UA) Urine Ketones Urine Blood Urine Nitrite Ur Leukocyte Esterase Urine Opiates Screen Urine Fentanyl Screen Acetaminophen Ur Barbiturates Screen Valproic Acid Ur Phencyclidine Scrn Ur Amphetamines Screen U Benzodiazepines Scrn Urine Cocaine Screen U Marijuana (THC) Screen Ethyl Alcohol COVID-19 ([facility]) COVID-Aicent 12/27/21 12/27/21 12/27/21 11:33 13:11 13:11 MCV MCH MCHC RDW Plt Count MPV Immature Gran % (Auto) Neut % (Auto) Lymph % (Auto) [place] % (Auto) Eos % (Auto) Baso % (Auto) Lymph # (Auto) [place] # (Auto) Eos # (Auto) Baso # (Auto) Abs Immat Gran (auto) Absolute Neuts (auto) Absolute Nucleated RBC Nucleated RBC % (auto) Smear Tech's Comments PT INR APTT Anion Gap Estim Creat Clear Calc Estimated GFR Random Glucose Lactic Acid Calcium Total Bilirubin Direct Bilirubin AST ALT Alkaline Phosphatase Troponin I High Sens Total Protein Albumin Urine Color DK YELLOW Urine Appearance HAZY Urine pH 6.0 Ur Specific [place] >= 1.030 H Urine Protein TRACE Urine Glucose (UA) NEG Urine Ketones 5 Urine Blood NEG Urine Nitrite NEG Ur Leukocyte Esterase NEG Urine Opiates Screen Not Detected Urine Fentanyl Screen Not Detected Acetaminophen Ur Barbiturates Screen Not Detected Valproic Acid Ur Phencyclidine Scrn Not Detected Ur Amphetamines Screen Not Detected U Benzodiazepines Scrn Not Detected Urine Cocaine Screen Not Detected U Marijuana (THC) Screen Not Detected Ethyl Alcohol COVID-19 ([facility]) Negative COVID-Aicent See Note 12/27/21 12/27/21 12/27/21 13:24 13:24 14:05 MCV MCH MCHC RDW Plt Count MPV Immature Gran % (Auto) Neut % (Auto) Lymph % (Auto) [place] % (Auto) Eos % (Auto) Baso % (Auto) Lymph # (Auto) [place] # (Auto) Eos # (Auto) Baso # (Auto) Abs Immat Gran (auto) Absolute Neuts (auto) Absolute Nucleated RBC Nucleated RBC % (auto) Smear Tech's Comments PT INR APTT Anion Gap Estim Creat Clear Calc Estimated GFR Random Glucose Lactic Acid Calcium Total Bilirubin Direct Bilirubin AST ALT Alkaline Phosphatase Troponin I High Sens 50.8 H* Total Protein Albumin Urine Color Urine Appearance Urine pH Ur Specific [place] Urine Protein Urine Glucose (UA) Urine Ketones Urine Blood Urine Nitrite Ur Leukocyte Esterase Urine Opiates Screen Urine Fentanyl Screen Acetaminophen Ur Barbiturates Screen Valproic Acid 112.3 H* Ur Phencyclidine Scrn Ur Amphetamines Screen U Benzodiazepines Scrn Urine Cocaine Screen U Marijuana (THC) Screen Ethyl Alcohol < 10 COVID-19 ([facility]) COVID-19 Clin Com Imaging Radiologist's Impressions: Impressions Chest X-Ray 12/27/21 10:42 IMPRESSION: Platelike atelectasis right lung base. No acute cardiopulmonary process seen. Venous Duplex 12/27/21 10:59 IMPRESSION: Platelike atelectasis right lung base. No acute cardiopulmonary process seen. Chest CTA 12/27/21 12:48 IMPRESSION: Bilateral pulmonary emboli. VTE: positive Findings were communicated to Brandee Driver by telephone on 12/27/2021 at 1:15 PM. Assessment and Plan (1) Pulmonary emboli: Status: Acute (2) Acute deep vein thrombosis (DVT) of left lower extremity: Status: Acute (3) Valproic acid toxicity: Status: Acute (4) Physical deconditioning: Status: Acute (5) Bipolar 1 disorder: Status: Acute Plan 71-year-old female patient with past medical history significant for bipolar disorder recently discharged from [facility] on 11/23 after being treated for Depakote toxicity, decreased mobility and was sent to short-term rehab, patient came to [facility] today due to generalized weakness, decreased mobility, decreased by mouth intake with left lower extremity significant swelling and discomfort, patient diagnosed to have extensive left lower leg DVT in bilateral PE with elevated Depakote level extensive left lower extremity DVT and bilateral PE admit to telemetry unit/ start anticoagulation follow CBC closely since noted to have mild thrombocytopenia obtained vascular surgery consultation patient evaluated by Dr. Duarte he does not feel patient is candidate for intervention due to low platelet count,and poor ambulating status elevated Depakote level patient was discharged home on 500 mg of Depakote at bedtime, however med reconciliation shows patient was taking 750 mg of Depakote will hold Depakote today recheck level tomorrow morning obtain psych consult elevated troponin patient with no chest pain no shortness of breath likely re lated to PE, EKG with poor baseline will repeat EKG and follow clical course. history of bipolar disorder continue olanzapine, hold Depakote patient noted to be withdrawn decreased by mouth intake decreased mobility question flare of bipolar disorder obtain psych eval hypertension soft blood pressure will hold lisinopril hyperlipidemia continue statin Code status patient has MOLST form indicating DNR DNI DVT prophylaxis on Lovenox Quality Stroke Does the patient have a stroke diagnosis?: No VTE Prior VTE?: No VTE Risk Level:: Medical - moderate - high VTE Device Contraindication: Treatment Not Indicated VTE Drug Contraindication: N/A - Med Ordered
[2021-12-27] MEDS: 0.9 % Sodium Chloride Flush 3 ML SYRINGE IVFLUSH ×2 (16:36→20:15)
[2021-12-27] MEDS: OLANZapine 10 MG TABLET 20 MG PO (20:13)
--- NOTE | 2021-12-28 | ECG_ITS ---
Test Reason : abn ekg f/u Blood Pressure : / mmHG Vent. Rate : 098 BPM Atrial Rate : 098 BPM P-R Int : 112 ms QRS Dur : 070 ms QT Int : 344 ms P-R-T Axes : 052 020 011 degrees QTc Int : 439 ms Artifact in tracing Normal sinus rhythm Nonspecific T wave abnormality Abnormal ECG When compared with ECG of 27-DEC-2021 15:22, No significant changes seen Referred By: Stephanie Salinas Electronically Signed By:MIGUEL CRAMER
[2021-12-28] MEDS: Enoxaparin Sodium 60 MG/0.6 ML SYRINGE 55 MG SUBCUT ×2 (02:55→14:57)
[2021-12-28 03:10] VITALS: BP 98/69; PULSE 94; RESP 18; TEMP 35.8; O2SAT 93
[2021-12-28 07:46] VITALS: BP 100/65; PULSE 90; RESP 20; TEMP 36.8; O2SAT 97
[2021-12-28 07:47] LABS: Hematocrit 35.6 % (37.0-47.0); Hemoglobin 11.3 g/dl (12.0-16.0); Mean Corpuscular HGB Conc 31.7 g/dl (31.0-35.0); Mean Corpuscular Hemoglobin 29.1 pg (27.0-33.0); Mean Corpuscular Volume 91.8 fL (80.0-98.0); Mean Platelet Volume 9.4 fL (9.4-12.3); Platelet Count 159 X10*3/uL (160-400); Red Blood Count 3.88 X10*6/uL (4.20-5.50); Red Cell Distribution Width 15.6 % (11.0-16.0); White Blood Count 11.3 X10*3/uL (4.8-10.8)
[2021-12-28 08:03] LABS: Valproate 85.8 mcg/mL (50.0-100.0)
--- NOTE | 2021-12-28 09:28 | P.CONGS_ITS ---
History of Present Illness Consult details Consult date: 12/28/21 Reason for consult: other (DVT with PE) Narrative: Very complex 71-year-old elderly female presents for vascular evaluation. She had been admitted in the past with the Depakote toxicity. She has been fairly nonambulatory since that point. Of note she has bipolar disorder and has been fairly deconditioned. It was discovered that she had a swollen left lower extremity. She was subsequently worked up and discovered to have a DVT with PE. She now presents to us for vascular evaluation. Review of Systems Verdana 4l Review of Systems: Yes all other systems are reviewed and Verdana 4d are negative Verdana 4l Constitutional: Verdana 4d Constitutional: Verdana 4d Verdana 4d Reports no additional constitutional complaints Verdana 4l ENT: Verdana 4d Reports Normal hearing present Verdana 4l Cardiovascular: Verdana 4d Cardiovascular: Verdana 4d Verdana 4d Denies chest pain, Denies chest pain at rest, Denies chest pain with activity and Denies pedal edema Verdana 4l Respiratory: Verdana 4d Verdana 4d Respiratory: Verdana 4d Denies cough Verdana 4l Gastrointestinal: Verdana 4d Gastrointestinal: Verdana 4d Verdana 4d Denies abdominal pain Verdana 4l Musculoskeletal: Verdana 4d Musculoskeletal: Verdana 4d Verdana 4d Denies abnormal gait, Denies muscle cramps and Denies radiating pain into limb Verdana 4l Integumentary/Breasts: Verdana 4d Skin/Breast: Verdana 4d Verdana 4d Denies skin ulcer and Denies wounds Verdana 4l Neurologic: Verdana 4d Reports Normal hearing present and Denies abnormal gait Verdana 4l Psychiatric: Verdana 4d Verdana 4d Psychiatric: Verdana 4d Reports no additional psychiatric complaints PMFSH Past Medical History Medical History Bipolar 1 disorder Social History Social History Household Members: None Housing: House Housing Other:: triler Do you presently have visiting nurse or other home services: Yes Alcohol intake: current Alcohol intake frequency: a few times a month Alcohol type: other Patient Tobacco Use Status: Never used Tobacco e-Cigarette/Vaping Use: Never Used Second Hand Smoke Exposure: No Use of substances other than those prescribed or required for medical reasons: No Currently Displaying Signs/Symptoms of Drug Intoxication Withdrawal: No Have you been hit, kicked, punched, or otherwise hurt by someone within the past year? If so, by whom?: No Do you feel safe in your current relationship?: Yes Is there a partner from a previous relationship who is making you feel unsafe now?: No Are you made to feel afraid or neglected: No Advance Directives: Yes Advance Directives on File: Yes Advance Directives Date on File: 03/19/21 Do you have thoughts of harming others: None Do you have a plan to hurt others: No Plan Recently lost weight without trying: No Eating poorly because of decreased appetite: No Nutrition Risks: No Nutritional Risk service: No Current occupational status: disabled Sexual orientation: Straight/Heterosexual Meds Allergies Allergy/AdvReac Type Severity Reaction Status Date / Time No Known Allergies Allergy Unverified 08/13/20 17:06 [No Known Allergies*] Active Medications: Current Medications Acetaminophen (Acetaminophen 325 Mg Tablet) 650 mg PO Q6H PRN PRN Reason: Pain, Mild (Pain Scale 1-3) Atorvastatin Calcium (Atorvastatin Calcium 80 Mg Tablet) 80 mg PO DAILY [facility] Enoxaparin Sodium (Enoxaparin Sodium 60 Mg/0.6 Ml Syringe) 55 mg 1 mg/kg (55 mg) SUBCUT Q12H [facility] Last Admin: 12/28/21 02:55 Dose: 55 mg Documented by: Olanzapine (Olanzapine 10 Mg Tablet) 20 mg PO BEDTIME [facility] Last Admin: 12/27/21 20:13 Dose: 20 mg Documented by: Ondansetron HCl (Ondansetron Hcl 4 Mg/2 Ml Vial) 4 mg IVPUSH Q8H PRN PRN Reason: Nausea and Vomiting Pharmacy Consult (Consult Rx Perform Med Rec) 1 each MISCELLANE ONCE PRN PRN Reason: Consult order Sodium Chloride (0.9 % Sodium Chloride Flush 3 Ml Syringe) 3 ml IVFLUSH QSHIFT [facility] Last Admin: 12/27/21 20:15 Dose: 3 ml Documented by: Trazodone HCl (Trazodone Hcl 50 Mg Tablet) 50 mg PO BEDTIME PRN PRN Reason: Insomnia Home Medications Medication Instructions Recorded Confirmed Last Taken Type atorvastatin 80 80 mg PO DAILY 11/17/21 12/27/21 12/27/21 History mg tablet divalproex 250 mg 250 mg PO DAILY 12/27/21 12/27/21 12/27/21 History tablet,delayed release divalproex 500 mg 500 mg PO 12/27/21 12/27/21 12/26/21 History tablet,delayed BEDTIME release Physical Exam Verdana 4l Vital Signs: Verdana 4d Verdana 4d Vital Signs: Verdana 4d Verdana 4Bd Last Vital Signs Verdana 4d Chair Inspector And Leveler New 4d Chair Inspector And Leveler New 4d Temp 98.2 F 12/28/21 07:46 Chair Inspector And Leveler New 4d Pulse 90 12/28/21 07:46 Chair Inspector And Leveler New 4d Resp 20 12/28/21 07:46 BP 100/65 12/28/21 07:46 Pulse Ox 97 12/28/21 07:46 BMI result Body Mass Index 22.3 Const: General: cooperative, healthy appearing and comfortable Orientation/consciousness: oriented to person, oriented to place and oriented to time HENMT: Head: Yes normal to inspection Neck: Neck: Yes normal visual inspection Carotids: no bruits Chest: Chest palpation & inspection: normal inspection of the chest Resp: Effort & Inspection: normal respiratory effort and able to speak in complete sentences Auscultation: clear to auscultation bilaterally, no crackles, no rales, no rhonchi and no wheezes Cardio: Rate: regular rate Rhythm: regular rhythm Heart sounds: S1 normal heart sound present and S2 normal heart sound present Bruits: no carotid bruits Peripheral pulses: Peripheral pulses 2+ throughout GI: Inspection: Yes normal to inspection Skin: Wounds: no wounds Hair: normal Neuro: General: oriented to person, oriented to place and oriented to time Cranial nerves: Yes CN's II-XII intact bilaterally and Yes Normal hearing present Cognition (Neuro): normal cognition Motor exam (neuro): 5/5 motor strength present throughout Extrem: Other: venous exam: +2 edema on the left lower extremity General: No clubbing, No cyanosis and No edema Psych: Appearance: grossly normal Mental Status: mental status grossly normal Speech and movement: Normal speech and movement present Results Labs Result diagrams: 12/28/21 07:03 12/27/21 11:27 Labs: Abnormal lab results 12/27/21 12/27/2122 Range/Units 11:27 11:27 11:27 WBC 11.7 H (4.8-10.8) X10*3/uL RBC (4.20-5.50) X10*6/uL Hgb (12.0-16.0) g/dl Hct (37.0-47.0) % Plt Count 130 L D (160-400) X10*3/uL MPV 8.8 L (9.4-12.3) fL Immature Gran % (Auto) 0.9 H (0.0-0.4) % Neut % (Auto) 78.1 H (45-73) % Lymph % (Auto) 6.8 L (20-40) % [place] % (Auto) 14.1 H (2-11) % Lymph # (Auto) 0.8 L (1.2-4.9) X10*3/uL [place] # (Auto) 1.7 H (0.1-1.2) X10*3/uL Abs Immat Gran (auto) 0.10 H (0.00-0.03) X10*3/uL Absolute Neuts (auto) 9.2 H (2.0-8.3) x10*3/uL BUN 29 H D (9-16) mg/dL Random Glucose 142 H (60-115) mg/dL AST 47 H D (5-31) U/L ALT 33 H (0-31) U/L Troponin I High Sens 51.8 H* (<3.5-17.0) ng/L Ur Specific [place] (1.005-1.025) Valproic Acid (50.0-100.0) mcg/mL 12/27/21 12/27/21 12/27/21 Range/Units 13:11 13:24 14:05 WBC (4.8-10.8) X10*3/uL RBC (4.20-5.50) X10*6/uL Hgb (12.0-16.0) g/dl Hct (37.0-47.0) % Plt Count (160-400) X10*3/uL MPV (9.4-12.3) fL Immature Gran % (Auto) (0.0-0.4) % Neut % (Auto) (45-73) % Lymph % (Auto) (20-40) % [place] % (Auto) (2-11) % Lymph # (Auto) (1.2-4.9) X10*3/uL [place] # (Auto) (0.1-1.2) X10*3/uL Abs Immat Gran (auto) (0.00-0.03) X10*3/uL Absolute Neuts (auto) (2.0-8.3) x10*3/uL BUN (9-16) mg/dL Random Glucose (60-115) mg/dL AST (5-31) U/L ALT (0-31) U/L Troponin I High Sens 50.8 H* (<3.5-17.0) ng/L Ur Specific [place] >= 1.030 H (1.005-1.025) Valproic Acid 112.3 H* (50.0-100.0) mcg/mL 12/28/21 Range/Units 07:03 WBC 11.3 H (4.8-10.8) X10*3/uL RBC 3.88 L (4.20-5.50) X10*6/uL Hgb 11.3 L (12.0-16.0) g/dl Hct 35.6 L (37.0-47.0) % Plt Count 159 L (160-400) X10*3/uL MPV (9.4-12.3) fL Immature Gran % (Auto) (0.0-0.4) % Neut % (Auto) (45-73) % Lymph % (Auto) (20-40) % [place] % (Auto) (2-11) % Lymph # (Auto) (1.2-4.9) X10*3/uL [place] # (Auto) (0.1-1.2) X10*3/uL Abs Immat Gran (auto) (0.00-0.03) X10*3/uL Absolute Neuts (auto) (2.0-8.3) x10*3/uL BUN (9-16) mg/dL Random Glucose (60-115) mg/dL AST (5-31) U/L ALT (0-31) U/L Troponin I High Sens (<3.5-17.0) ng/L Ur Specific [place] (1.005-1.025) Valproic Acid (50.0-100.0) mcg/mL Short CBC 12/27/21 12/28/21 Range/Units 11:27 07:03 WBC 11.7 H 11.3 H (4.8-10.8) X10*3/uL Hgb 12.7 D 11.3 L (12.0-16.0) g/dl Hct 40.4 D 35.6 L (37.0-47.0) % Plt Count 130 L D 159 L (160-400) X10*3/uL BMP 12/27/21 11:27 Sodium 143 Potassium 4.2 Chloride 105 Carbon Dioxide 27 BUN 29 H D Creatinine 1.08 Calcium 9.1 D Liver Function 12/27/21 Range/Units 11:27 Total Bilirubin 0.5 (0.0-1.0) mg/dL Direct Bilirubin 0.2 (0.0-0.5) mg/dL AST 47 H D (5-31) U/L ALT 33 H (0-31) U/L Alkaline Phosphatase 75 D (39-117) U/L Albumin 3.8 D (3.5-5.0) g/dL Urine 12/27/21 Range/Units 13:11 Urine Color DK YELLOW Urine Appearance HAZY Urine pH 6.0 (5.0-8.0) Ur Specific [place] >= 1.030 H (1.005-1.025) Urine Protein TRACE (NEG-TRACE) MG/DL Urine Glucose (UA) NEG (NEG) MG/DL All other labs normal. Imaging Additional studies: CT angiogram was reviewed and was positive for pulmonary embolism. Ultrasound was positive for left lower extremity DVT. Assessment and Plan (1) Acute deep vein thrombosis (DVT) of left lower extremity: Status: Acute Plan 71-year-old female with new onset DVT and PE. Most likely due to her nonambulatory status. Due to her current status and low platelet count would not consider her a safe candidate for thrombolysis. At the current time would continue with formal anticoagulation. Will follow-up as required. Thank you for allowing us to assist in his care. If there are any questions or concerns please do not hesitate to contact us Procedures Date of Service Date of Service: 12/28/21
[2021-12-28] MEDS: 0.9 % Sodium Chloride Flush 3 ML SYRINGE IVFLUSH ×3 (10:07→20:08)
[2021-12-28] MEDS: Atorvastatin Calcium 80 MG TABLET PO (10:07)
[2021-12-28 11:15] VITALS: BP 122/77; PULSE 100; RESP 20; TEMP 37.4; O2SAT 97
--- NOTE | 2021-12-28 13:03 | MHC.CM.PN ---
called and left message for pts ashok benson [phone] to complete cm assesement
--- NOTE | 2021-12-28 14:00 | MHC.CM.PN ---
received call back from pts ashok who explains that pt lives alone and has a lock box which juancarlos oconnell daily pt may need assistance with transportaion home if her dgter is working pt is vax x 2
--- NOTE | 2021-12-28 15:09 | P.PNIM_ITS ---
Subjective Subjective Date of Service: 12/28/21 Interval History: patient awake alert offers no acute complaints denies chest pain, no palpitation denies left leg pain wants to move her leg, no acute events overnight. Review of Systems Review of Systems: Yes all other systems are reviewed and are negative Physical Exam Verdana 4l Vital Signs: Verdana 4d Verdana 4d Vital Signs: Verdana 4d Verdana 4Bd Last Vital Signs Verdana 4d Retail Financial Analyst New 4d Retail Financial Analyst New 4d Temp 99.4 F 12/28/21 11:15 Retail Financial Analyst New 4d Pulse 100 12/28/21 11:15 Retail Financial Analyst New 4d Resp 20 12/28/21 11:15 BP 122/77 12/28/21 11:15 Pulse Ox 97 12/28/21 11:15 BMI result Body Mass Index 22.3 Const: Other: General? awake alert, no acute distress.? HEENT pupil equal round reactive to light and accommodation Neck supple no JVD. CVS? regular rate rhythm, Respiratory lungs clear to auscultation, no respiratory distress, no wheeze, no rhonchi. Gastrointestinal abdomen soft, nontender, bowel sounds audible Extremities? left lower extremity Swelling significantly improved, leg warm to touch good peripheral pulses, no skin mottling Neuro nonfocal ,speech clear. psych conversing more, still withdrawn Objective Data Active Medications Acetaminophen (Acetaminophen 325 Mg Tablet) 650 mg PO Q6H PRN PRN Reason: Pain, Mild (Pain Scale 1-3) Atorvastatin Calcium (Atorvastatin Calcium 80 Mg Tablet) 80 mg PO DAILY [facility] Last Admin: 12/28/21 10:07 Dose: 80 mg Documented by: TRE Enoxaparin Sodium (Enoxaparin Sodium 60 Mg/0.6 Ml Syringe) 55 mg 1 mg/kg (55 mg) SUBCUT Q12H [facility] Last Admin: 12/28/21 14:57 Dose: 55 mg Documented by: LATOYA Olanzapine (Olanzapine 10 Mg Tablet) 20 mg PO BEDTIME [facility] Last Admin: 12/27/21 20:13 Dose: 20 mg Documented by: JENNIFER Ondansetron HCl (Ondansetron Hcl 4 Mg/2 Ml Vial) 4 mg IVPUSH Q8H PRN PRN Reason: Nausea and Vomiting Pharmacy Consult (Consult Rx Perform Med Rec) 1 each MISCELLANE ONCE PRN PRN Reason: Consult order Sodium Chloride (0.9 % Sodium Chloride Flush 3 Ml Syringe) 3 ml IVFLUSH QSHIFT [facility] Last Admin: 12/28/21 15:00 Dose: 3 ml Documented by: LATOYA Trazodone HCl (Trazodone Hcl 50 Mg Tablet) 50 mg PO BEDTIME PRN PRN Reason: Insomnia Labs CBC & Chem 7: 12/28/21 07:03 12/27/21 11:27 Labs: Laboratory Results - last 24 hr 12/28/21 12/28/21 07:03 07:03 MCV 91.8 MCH 29.1 MCHC 31.7 RDW 15.6 Plt Count 159 L MPV 9.4 Absolute Nucleated RBC 0.000 Nucleated RBC % (auto) 0.0 Valproic Acid 85.8 Microbiology Microbiology Results: Microbiology 12/27/21 11:33 Blood Culture - Preliminary Blood - Venous No growth after 24 hours. 12/27/21 11:27 Blood Culture - Preliminary Blood - Venous No growth after 24 hours. Assessment and Plan (1) Pulmonary emboli: Status: Acute (2) Acute deep vein thrombosis (DVT) of left lower extremity: Status: Acute (3) Valproic acid toxicity: Status: Acute (4) Physical deconditioning: Status: Acute (5) Bipolar 1 disorder: Status: Acute Plan 71-year-old female patient with past medical history significant for bipolar disorder recently discharged from [facility] on 11/23 after being treated for Depakote toxicity, decreased mobility and was sent to short-term rehab, patient came to [facility] today due to generalized weakness, decreased mobility, decreased by mouth intake with left lower extremity significant swelling and discomfort, patient diagnosed to have extensive left lower leg DVT in bilateral PE? with elevated Depakote level ?extensive left lower extremity DVT and bilateral PE significant improvement in left lower extremity swelling, platelet stable and improved, continue subQ Lovenox b.i.d. ?evaluated by Dr. Duarte he does not feel patient is candidate for intervention due to low platelet count,and poor ambulating status ?elevated Depakote level ?patient was discharged home on 500 mg of Depakote at bedtime, however med reconciliation shows patient was taking 750 mg of Depakote ?Depakote level normalized from 112.3 to 85.8 will resume Depakote 500 mg at bedtime await psych input for further med adjustment for bipolar disorder ?elevated troponin patient with no chest pain no shortness of breath likely related to PE, EKG? with poor baseline ,will obtain repeat EKG ?history of bipolar disorder ?continue olanzapine, low-dose Depakote is started at bedtime ?patient noted to be withdrawn, decreased by mouth intake ,decreased mobility question flare of bipolar disorder psych eval pending ?hypertension soft blood pressure continue to hold lisinopril ? hyperlipidemia continue statin ?Code status patient has MOLST form indicating DNR DNI ?DVT prophylaxis on Lovenox disposition to home after being converted to oral anticoagulation and after being evaluated by psych Quality Stroke Does the patient have a stroke diagnosis?: No VTE Prior VTE?: No VTE Risk Level:: Medical - moderate - high VTE Device Contraindication: Treatment Not Indicated VTE Drug Contraindication: N/A - Med Ordered
[2021-12-28 15:19] VITALS: BP 95/59; PULSE 98; RESP 14; TEMP 37; O2SAT 96
[2021-12-28 19:30] VITALS: BP 90/60; PULSE 98; RESP 16; TEMP 36.7; O2SAT 95
[2021-12-28] MEDS: OLANZapine 10 MG TABLET 20 MG PO (20:04)
[2021-12-28] MEDS: Acetaminophen 325 MG TABLET 650 MG PO (20:10)
[2021-12-28 23:25] VITALS: BP 90/58; PULSE 79; RESP 18; TEMP 35.8; O2SAT 94
[2021-12-29] MEDS: Enoxaparin Sodium 60 MG/0.6 ML SYRINGE 55 MG SUBCUT ×2 (03:09→13:20)
[2021-12-29 03:44] VITALS: BP 94/61; PULSE 90; RESP 18; TEMP 36.2; O2SAT 96
--- NOTE | 2021-12-29 05:14 | PC.NURSE ---
Pt has not voided, bladder scanned for [address] Chu notified, order for straight cath. 500 ml alisson urine out.
[2021-12-29 07:20] VITALS: BP 118/83; PULSE 99; RESP 18; TEMP 36.4; O2SAT 95
[2021-12-29] MEDS: 0.9 % Sodium Chloride Flush 3 ML SYRINGE IVFLUSH ×3 (08:04→21:26)
[2021-12-29] MEDS: Atorvastatin Calcium 80 MG TABLET PO (08:04)
[2021-12-29 11:17] VITALS: BP 101/59; PULSE 103; RESP 18; TEMP 36.8; O2SAT 96
--- NOTE | 2021-12-29 12:29 | P.PNIM_ITS ---
Subjective Subjective Date of Service: 12/29/21 Interval History: awake alert answering questions appropriately complaining of constipation requesting for enema, denies left leg pain, no acute issues overnight denies chest pain, no shortness of breath , no palpitation. Review of Systems Review of Systems: Yes all other systems are reviewed and are negative Physical Exam Verdana 4l Vital Signs: Verdana 4d Verdana 4d Vital Signs: Verdana 4d Verdana 4Bd Last Vital Signs Verdana 4d Academic Support Assistant New 4d Academic Support Assistant New 4d Temp 98.2 F 12/29/21 11:17 Academic Support Assistant New 4d Pulse 103 H 12/29/21 11:17 Academic Support Assistant New 4d Resp 18 12/29/21 11:17 BP 101/59 L 12/29/21 11:17 Pulse Ox 96 12/29/21 11:17 BMI result Body Mass Index 22.3 Const: Other: General? awake alert, no acute distress.? HEENT pupil equal round reactive to light and accommodation Neck supple no JVD. CVS? regular rate rhythm, Respiratory lungs clear to auscultation, no respiratory distress, no wheeze, no rhonchi. Gastrointestinal abdomen soft, nontender, bowel sounds audible Extremities? left lower extremity swelling improved since yesterday, leg warm to touch good peripheral pulses, no skin mottling Neuro nonfocal ,speech clear. psych appropriate affect,conversing? more. Objective Data Active Medications Acetaminophen (Acetaminophen 325 Mg Tablet) 650 mg PO Q6H PRN PRN Reason: Pain, Mild (Pain Scale 1-3) Last Admin: 12/28/21 20:10 Dose: 650 mg Documented by: CALEB Atorvastatin Calcium (Atorvastatin Calcium 80 Mg Tablet) 80 mg PO DAILY [facility] Last Admin: 12/29/21 08:04 Dose: 80 mg Documented by: COTEMA Divalproex Sodium (Divalproex Sodium Er 500 Mg Tab.Er.24h) 500 mg PO BEDTIME [facility] Last Admin: 12/28/21 20:13 Dose: Not Given Documented by: CALEB Non-Admin Reason: Patient Refused Enoxaparin Sodium (Enoxaparin Sodium 60 Mg/0.6 Ml Syringe) 55 mg 1 mg/kg (55 mg) SUBCUT Q12H [facility] Last Admin: 12/29/21 03:09 Dose: 55 mg Documented by: CALEB Olanzapine (Olanzapine 10 Mg Tablet) 20 mg PO BEDTIME [facility] Last Admin: 12/28/21 20:04 Dose: 20 mg Documented by: CALEB Ondansetron HCl (Ondansetron Hcl 4 Mg/2 Ml Vial) 4 mg IVPUSH Q8H PRN PRN Reason: Nausea and Vomiting Pharmacy Consult (Consult Rx Perform Med Rec) 1 each MISCELLANE ONCE PRN PRN Reason: Consult order Sodium Chloride (0.9 % Sodium Chloride Flush 3 Ml Syringe) 3 ml IVFLUSH QSHIFT [facility] Last Admin: 12/29/21 08:04 Dose: 3 ml Documented by: ANTON Trazodone HCl (Trazodone Hcl 50 Mg Tablet) 50 mg PO BEDTIME PRN PRN Reason: Insomnia Labs CBC & Chem 7: 12/28/21 07:03 12/27/21 11:27 Microbiology Microbiology Results: Microbiology 12/27/21 11:33 Blood Culture - Preliminary Blood - Venous No growth after 24 hours. 12/27/21 11:27 Blood Culture - Preliminary Blood - Venous No growth after 24 hours. Assessment and Plan (1) Pulmonary emboli: Status: Acute (2) Acute deep vein thrombosis (DVT) of left lower extremity: Status: Acute (3) Valproic acid toxicity: Status: Acute (4) Physical deconditioning: Status: Acute (5) Bipolar 1 disorder: Status: Acute Plan 71-year-old female patient with past medical history significant for bipolar disorder recently discharged from [facility] on 11/23 after being treated for Depakote toxicity, decreased mobility and was sent to short-term rehab, patient came to [facility] today due to generalized weakness, decreased mobility, decreased by mouth intake with left lower extremity significant s welling and discomfort, patient diagnosed to have extensive left lower leg DVT in bilateral PE? with elevated Depakote level ?extensive left lower extremity DVT and bilateral PE significant improvement in left lower extremity swelling, no pain, platelet stable and improved, continue subQ Lovenox b.i.d. times 48 hours then transition to oral anticoagulant ?evaluated by Dr. Duarte he does not feel patient is candidate for intervention due to low platelet count,and poor ambulating status ?elevated Depakote level ?patient was discharged home on 500 mg of Depakote at bedtime, however med reconciliation shows patient was taking 750 mg of Depakote ?Depakote level normalized from 112.3 to 85.8 placed back on Depakote 500 mg at bedtime await psych input for further med adjustment for bipolar disorder ?elevated troponin patient with no chest pain no shortness of breath likely related to PE, EKG? with poor baseline ,repeat EKG shows artifact, normal sinus rhythm and nonspecific T-wave abnormality ?history of bipolar disorder ?continue olanzapine, low-dose Depakote is started at bedtime ?patient presented with decreased by mouth intake ,decreased mobility question flare of bipolar disorder psych eval pending ?hypertension blood pressure remains low, continue to hold lisinopril ? hyperlipidemia continue statin ?Code status patient has MOLST form indicating DNR DNI ?DVT prophylaxis on Lovenox disposition to home after being converted to oral anticoagulation and after being evaluated by psych, will require PT evaluation prior to discharge Quality Stroke Does the patient have a stroke diagnosis?: No VTE Prior VTE?: No VTE Risk Level:: Medical - moderate - high VTE Device Contraindication: Treatment Not Indicated VTE Drug Contraindication: N/A - Med Ordered
[2021-12-29 15:09] VITALS: BP 105/73; PULSE 105; RESP 18; TEMP 37; O2SAT 96
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
[2021-12-29 19:33] VITALS: BP 110/72; PULSE 108; RESP 15; TEMP 36.6; O2SAT 95
[2021-12-29] MEDS: OLANZapine 10 MG TABLET 20 MG PO (21:25)
[2021-12-29] MEDS: Divalproex Sodium ER 500 MG TAB.ER.24H PO (21:26)
[2021-12-29 23:22] VITALS: BP 113/75; PULSE 95; RESP 18; TEMP 36.4; O2SAT 94
[2021-12-30] VITALS (7 sets, daily range): BP systolic 95–140; BP diastolic 58–93; PULSE 76–104; RESP 17–18; TEMP 35.8–37.1; O2SAT 94–95
[2021-12-30] MEDS: Enoxaparin Sodium 60 MG/0.6 ML SYRINGE 55 MG SUBCUT (02:15)
[2021-12-30 06:28] LABS: Hematocrit 30.6 % (37.0-47.0); Hemoglobin 9.7 g/dl (12.0-16.0); Mean Corpuscular HGB Conc 31.7 g/dl (31.0-35.0); Mean Corpuscular Hemoglobin 28.6 pg (27.0-33.0); Mean Corpuscular Volume 90.3 fL (80.0-98.0); Mean Platelet Volume 8.8 fL (9.4-12.3); Platelet Count 222 X10*3/uL (160-400); Red Blood Count 3.39 X10*6/uL (4.20-5.50); Red Cell Distribution Width 15.1 % (11.0-16.0); White Blood Count 9.1 X10*3/uL (4.8-10.8)
[2021-12-30] MEDS: Atorvastatin Calcium 80 MG TABLET PO (10:13)
[2021-12-30] MEDS: 0.9 % Sodium Chloride Flush 3 ML SYRINGE IVFLUSH ×3 (10:13→23:20)
[2021-12-30] MEDS: Apixaban 5 MG TABLET 10 MG PO ×2 (10:13→22:00)
[2021-12-30 12:07] LABS: Appearance Urine HAZY; Color Urine DK YELLOW; Glucose Urine UA NEG (NEG); Leukocyte Esterase Urine TRACE (NEG); Nitrite Urine POS (NEG); PH 6.5 (5.0-8.0); UACC Culture Trigger YES; Urine Blood 1+ (NEG); Urine Ketones NEG (NEG); Urine Protein 2+ MG/DL (NEG-TRACE)
[2021-12-30 12:29] LABS: RBC Urine 0 /HPF (0)
[2021-12-30 12:30] LABS: Bacteria Urine 3+ /LPF; Mucus Urine 1+ /LPF
--- NOTE | 2021-12-30 13:39 | P.PNIM_ITS ---
Subjective Subjective Date of Service: 12/30/21 Interval History: complaining of difficulty with urination denies burning or dysuria, overnight noted to have urinary incontinence, was constipated yesterday but moved bowel after enema, denies leg pain denies fever chills, no nausea, no vomiting, no fever, chills no other acute issues overnight. Review of Systems Review of Systems: Yes all other systems are reviewed and are negative Physical Exam Verdana 4l Vital Signs: Verdana 4d Verdana 4d Vital Signs: Verdana 4d Verdana 4Bd Last Vital Signs Verdana 4d Radioisotope Production Operator New 4d Radioisotope Production Operator New 4d Temp 98.6 F 12/30/21 11:23 Radioisotope Production Operator New 4d Pulse 89 12/30/21 11:23 Radioisotope Production Operator New 4d Resp 18 12/30/21 11:23 BP 95/58 L 12/30/21 11:23 Pulse Ox 94 12/30/21 11:23 BMI result Body Mass Index 22.3 Const: Other: General? awake alert, no acute distress.? HEENT pupil equal round reactive to light and accommodation. Neck supple no JVD. CVS? regular rate rhythm, Respiratory lungs clear to auscultation, no respiratory distress, no wheeze, no rhonchi. Gastrointestinal abdomen soft, nontender, bowel sounds audible Extremities? left lower extremity swelling? Significantly improved,good peripheral pulses, no skin mottling Neuro nonfocal ,speech clear. psych? appropriate affect,conversing? more. Objective Data Active Medications Acetaminophen (Acetaminophen 325 Mg Tablet) 650 mg PO Q6H PRN PRN Reason: Pain, Mild (Pain Scale 1-3) Last Admin: 12/28/21 20:10 Dose: 650 mg Documented by: CALEB Apixaban (Apixaban 5 Mg Tablet) 10 mg PO BID [facility] Stop: 01/05/22 21:01 Last Admin: 12/30/21 10:13 Dose: 10 mg Documented by: TRE Atorvastatin Calcium (Atorvastatin Calcium 80 Mg Tablet) 80 mg PO DAILY [facility] Last Admin: 12/30/21 10:13 Dose: 80 mg Documented by: TRE Divalproex Sodium (Divalproex Sodium Er 500 Mg Tab.Er.24h) 500 mg PO BEDTIME [facility] Last Admin: 12/29/21 21:26 Dose: 500 mg Documented by: GUTIERREZ Olanzapine (Olanzapine 10 Mg Tablet) 20 mg PO BEDTIME [facility] Last Admin: 12/29/21 21:25 Dose: 20 mg Documented by: GUTIERREZ Ondansetron HCl (Ondansetron Hcl 4 Mg/2 Ml Vial) 4 mg IVPUSH Q8H PRN PRN Reason: Nausea and Vomiting Pharmacy Consult (Consult Rx Perform Med Rec) 1 each MISCELLANE ONCE PRN PRN Reason: Consult order Sodium Chloride (0.9 % Sodium Chloride Flush 3 Ml Syringe) 3 ml IVFLUSH QSHIFT [facility] Last Admin: 12/30/21 10:13 Dose: 3 ml Documented by: TRE Trazodone HCl (Trazodone Hcl 50 Mg Tablet) 50 mg PO BEDTIME PRN PRN Reason: Insomnia Labs CBC & Chem 7: 12/30/21 05:46 12/27/21 11:27 Labs: Laboratory Results - last 24 hr 12/30/21 12/30/21 05:46 11:55 MCV 90.3 MCH 28.6 MCHC 31.7 RDW 15.1 Plt Count 222 D MPV 8.8 L Absolute Nucleated RBC 0.000 Nucleated RBC % (auto) 0.0 Urine Color DK YELLOW Urine Appearance HAZY Urine pH 6.5 Ur Specific [place] 1.020 Urine Protein 2+ H Urine Glucose (UA) NEG Urine Ketones NEG Urine Blood 1+ H Urine Nitrite POS H Ur Leukocyte Esterase TRACE H Urine RBC 0 Urine WBC 10-14 H Ur Squamous Epith Cells NONE Urine Bacteria 3+ Urine Mucus 1+ Microbiology Microbiology Results: Microbiology 12/27/21 11:33 Blood Culture - Preliminary Blood - Venous No growth after 48 hours. 12/27/21 11:27 Blood Culture - Preliminary Blood - Venous No growth after 48 hours. Assessment and Plan (1) Pulmonary emboli: Status: Acute (2) Acute deep vein thrombosis (DVT) of left lower extremity: Status: Acute (3) Valproic acid toxicity: Status: Acute (4) Physical deconditioning: Status: Acute (5) Bipolar 1 disorder: Status: Acute Plan 71-year-old female patient with past medical history significant for bipolar disorder recently discharged from [facility] on 11/23 after being treated for Depakote toxicity, decreased mobility and was sent to short-term rehab, miriam ent came to [facility] today due to generalized weakness, decreased mobility, decreased by mouth intake with left lower extremity significant swelling and discomfort, patient diagnosed to have extensive left lower leg DVT in bilateral PE? with elevated Depakote level ?extensive left lower extremity DVT and bilateral PE ?significant improvement in left lower extremity swelling, no pain, platelet stable and improved, ?s/p subQ Lovenox b.i.d. times 48 hours now on Eliquis 10 mg by mouth b.i.d. x7 days day 1 today ?evaluated by Dr. Duarte he does not feel patient is candidate for intervention due to low platelet count,and poor ambulating status ?elevated Depakote level ?patient was discharged home on 500 mg of Depakote at bedtime, however med reconciliation shows patient was taking 750 mg of Depakote ?Depakote level normalized from 112.3 to 85.8 ? placed back on Depakote 500 mg at bedtime , seen by psych they agree to continue current dose of Depakote but changed to Sprinkles, no other medication changes recommended urinary retention bladder scan 430 will do straight cath check UA and culture sensitivity add low-dose Flomax ?elevated troponin patient with no chest pain, no shortness of breath, likely related to PE, EKG? with poor baseline ,repeat EKG shows artifact, normal sinus rhythm and nonspecific T-wave abnormality ?history of bipolar disorder ?continue olanzapine,? and low-dose Depakote ?hypertension? blood pressure? remains low, continue to hold lisinopril hyperlipidemia continue statin ?Code status patient has MOLST form indicating DNR DNI ?DVT prophylaxis on Lovenox ?disposition obtain PT eval they recommend short-term rehab Quality Stroke Does the patient have a stroke diagnosis?: No VTE Prior VTE?: No VTE Risk Level:: Medical - moderate - high VTE Device Contraindication: Treatment Not Indicated VTE Drug Contraindication: N/A - Med Ordered
[2021-12-30] MEDS: cefTRIAXone sodium 1 GM in 0.9 % Sodium Chloride 50 ML IV (14:27)
[2021-12-30] MEDS: Docusate Sodium 100 MG CAPSULE PO (22:00)
[2021-12-30] MEDS: Divalproex Sodium Sprinkles 125 MG CAP.DR.SPR 500 MG PO (22:00)
[2021-12-30] MEDS: Tamsulosin HCL 0.4 MG CAPSULE PO (22:00)
[2021-12-30] MEDS: OLANZapine 10 MG TABLET 20 MG PO (22:00)
[2021-12-31] VITALS (7 sets, daily range): BP systolic 95–141; BP diastolic 54–78; PULSE 67–101; RESP 17–18; TEMP 36.5–37.2; O2SAT 94–98
[2021-12-31] MEDS: Apixaban 5 MG TABLET 10 MG PO ×2 (08:40→21:45)
[2021-12-31] MEDS: Docusate Sodium 100 MG CAPSULE PO (08:40)
[2021-12-31] MEDS: Atorvastatin Calcium 80 MG TABLET PO (08:40)
[2021-12-31] MEDS: 0.9 % Sodium Chloride Flush 3 ML SYRINGE IVFLUSH ×3 (08:41→21:45)
--- NOTE | 2021-12-31 09:47 | MHC.CM.PN ---
physical therapy recommends str ,attempted to meet with pt who states she is not feeling well and to call dr camacho and spoke with pts ashok and hcp marcelino who is agreeable to hi plan of str she has no preferences pt has been at [facility] in the past referals made ashok moreno a copy of pts med list at hi be emailrd to her so she can share with her psychiaytis her email address is [email or web address]
[2021-12-31] MEDS: Throat Lozenge, Medicated LOZENGE 1 LOZENGE MUCOUS MEM (11:44)
[2021-12-31] MEDS: cefTRIAXone sodium 1 GM in 0.9 % Sodium Chloride 50 ML IV (14:24)
--- NOTE | 2021-12-31 14:38 | MHC.CM.PN ---
pt has a bed at [facility] waiting in s jovana sh[facility] dc tomorrow
--- NOTE | 2021-12-31 14:53 | PC.NURSE ---
Patient unable to void, bladder scan showed 460ml, per dr. Salinas' order straight cath performed and 500ml dark alisson color urine drained. Patient tolerated procedure well
[2021-12-31 15:04] LABS: COVID-19 Test Negative (Negative)
--- NOTE | 2021-12-31 15:39 | P.PNIM_ITS ---
Subjective Subjective Date of Service: 01/01/22 Interval History: complaining of sore throat, difficulty in voiding, required straight catheterization, due to bladder scan greater than 450, denies nausea vomiting no abdominal pain, no other acute issues overnight. Review of Systems Review of Systems: Yes all other systems are reviewed and are negative Physical Exam Verdana 4l Vital Signs: Verdana 4d Verdana 4d Vital Signs: Verdana 4d Verdana 4Bd Last Vital Signs Verdana 4d Petroleum Refinery Worker New 4d Petroleum Refinery Worker New 4d Temp 97.7 F 12/31/21 10:49 Petroleum Refinery Worker New 4d Pulse 101 H 12/31/21 10:49 Petroleum Refinery Worker New 4d Resp 18 12/31/21 10:49 BP 100/59 L 12/31/21 10:49 Pulse Ox 94 12/31/21 10:49 BMI result Body Mass Index 22.3 Const: Other: General? awake brayden rt, no acute distr ess.? Throat hyper emic pharynx Neck supple no JVD. CVS ? regular rate rhy thm, Respiratory l ungs clear to ausc ultation, no respi ratory distress, n o wheeze, no rhonc hi. Gastrointestin al abdomen soft, n ontender, bowel so unds audible Extre mities? left lower extremity swellin g,significantly im proved,good periph eral pulses Neuro nonfocal ,speech c lear. psych? appro priate affect Objective Data Active Medications Acetaminophen (Acetaminophen 325 Mg Tablet) 650 mg PO Q6H PRN PRN Reason: Pain, Mild (Pain Scale 1-3) Last Admin: 12/28/21 20:10 Dose: 650 mg Documented by: CALEB Apixaban (Apixaban 5 Mg Tablet) 10 mg PO BID [facility] Stop: 01/05/22 21:01 Last Admin: 12/31/21 08:40 Dose: 10 mg Documented by: GEE Atorvastatin Calcium (Atorvastatin Calcium 80 Mg Tablet) 80 mg PO DAILY [facility] Last Admin: 12/31/21 08:40 Dose: 80 mg Documented by: GEE Benzocaine (Throat Lozenge, Medicated Lozenge) 1 lozenge MUCOUS MEM Q2H PRN PRN Reason: Sore Throat Last Admin: 12/31/21 11:44 Dose: 1 lozenge Documented by: GEE Cefuroxime Axetil (Cefuroxime Axetil 250 Mg Tablet) 250 mg PO Q12H [facility] Divalproex Sodium (Divalproex Sodium Sprinkles 125 Mg ) 500 mg PO BEDTIME [facility] Last Admin: 12/30/21 22:00 Dose: 500 mg Documented by: LUCIA Docusate Sodium (Docusate Sodium 100 Mg Capsule) 100 mg PO BID [facility] Last Admin: 12/31/21 08:40 Dose: 100 mg Documented by: GEE Ceftriaxone Sodium 1 gm/ (Sodium Chloride) 50 mls @ 100 mls/hr IV Q24H [facility] Last Infusion: 12/31/21 14:59 Dose: 0 mls/hr Documented by: GEE Olanzapine (Olanzapine 10 Mg Tablet) 20 mg PO BEDTIME [facility] Last Admin: 12/30/21 22:00 Dose: 20 mg Documented by: LUCIA Ondansetron HCl (Ondansetron Hcl 4 Mg/2 Ml Vial) 4 mg IVPUSH Q8H PRN PRN Reason: Nausea and Vomiting Pharmacy Consult (Consult Rx Perform Med Rec) 1 each MISCELLANE ONCE PRN PRN Reason: Consult order Sodium Chloride (0.9 % Sodium Chloride Flush 3 Ml Syringe) 3 ml IVFLUSH QSHIFT [facility] Last Admin: 12/31/21 08:41 Dose: 3 ml Documented by: GEE Tamsulosin HCl (Tamsulosin Hcl 0.4 Mg Capsule) 0.4 mg PO BEDTIME [facility] Last Admin: 12/30/21 22:00 Dose: 0.4 mg Documented by: LUCIA Trazodone HCl (Trazodone Hcl 50 Mg Tablet) 50 mg PO BEDTIME PRN PRN Reason: Insomnia Labs CBC & Chem 7: 01/01/22 05:31 01/01/22 05:31 Labs: Laboratory Results - last 24 hr 12/31/21 14:30 COVID-19 ([facility]) Negative COVID-19 Clin Com See Note Microbiology Microbiology Results: Microbiology 12/30/21 Unknown Urine Culture - Final Urine clean catch - Urine lo top Assessment and Plan (1) Pulmonary emboli: Status: Acute (2) Acute deep vein thrombosis (DVT) of left lower extremity: Status: Acute (3) Valproic acid toxicity: Status: Acute (4) Physical deconditioning: Status: Acute (5) Bipolar 1 disorder: Status: Acute Plan 71-year-old female patient with past medical history significant for bipolar disorder recently discharged from [facility] on 11/23 after being treated for Depakote toxicity, decreased mobility and was sent to short-term rehab, patient came to [facility] today due to generalized weakness, decreased mobility, decreased by mouth intake with left lower extremity significant swelling and discomfort, patient diagnosed to have extensive left lower leg DVT in bilateral PE? with elevated Depakote level ?extensive left lower extremity DVT and bilateral PE ?significant improvement in left lower extremity swelling, no pain, platelet stable and improved, ?s/p subQ Lovenox b.i.d. times 48 hours now on Eliquis 10 mg by mouth b.i.d. day 01/03 ?evaluated by Dr. Duarte he does not feel patient is candidate for intervention due to low platelet count,and poor ambulating status ?elevated Depakote level ?patient was discharged home on 500 mg of Depakote at bedtime, however med reconciliation shows patient was taking 750 mg of Depakote ?Depakote level normalized from 112.3 to 85.8 placed back on Depakote 500 mg at bedtime , seen by psych they agree to continue current dose of Depakote no other medication changes recommended Urinary retention bladder scan >400 , started on Flomax 0.4 mg, placed on IV ceftriaxone for UTI, will straight cath Q shift for bladder scan greater than 400 encourage by mouth fluids obtain renal ultrasound urinary tract infection UA positive patient is symptomatic urine culture grew mixed bacterial bisi greater than 100,000, will finish course of antibiotics since that will cover pharyngitis also. pharyngitis with dysphagia continue antibiotic as above and give lozenges.no thrush ?elevated troponin patient with no chest pain, no shortness of breath, likely related to PE, EKG? with poor baseline ,repeat EKG shows artifact, normal sinus rhythm and nonspecific T-wave abnormality ?history of bipolar disorder ?continue olanzapine,? and low-dose Depakote ?hypertension? blood pressure? remains low, continue to hold lisinopril hyperlipidemia continue statin ?Code status patient has MOLST form indicating DNR DNI ?DVT prophylaxis on Lovenox ?disposition PT recommend short-term rehab,Cm arranging for safe discharge Quality Stroke Does the patient have a stroke diagnosis?: No VTE Prior VTE?: No VTE Risk Level:: Medical - moderate - high VTE Device Contraindication: Treatment Not Indicated VTE Drug Contraindication: N/A - Med Ordered
[2021-12-31] MEDS: Acetaminophen 325 MG TABLET 650 MG PO (21:42)
[2021-12-31] MEDS: OLANZapine 10 MG TABLET 20 MG PO (21:44)
[2021-12-31] MEDS: Tamsulosin HCL 0.4 MG CAPSULE PO (21:44)
[2021-12-31] MEDS: Divalproex Sodium Sprinkles 125 MG CAP.DR.SPR 500 MG PO (21:45)
[2022-01-01 03:51] VITALS: BP 101/54; PULSE 75; RESP 18; TEMP 36.4; O2SAT 95
[2022-01-01 06:13] LABS: Hematocrit 28.5 % (37.0-47.0); Mean Corpuscular HGB Conc 31.6 g/dl (31.0-35.0); Mean Corpuscular Hemoglobin 28.6 pg (27.0-33.0); Mean Corpuscular Volume 90.5 fL (80.0-98.0); Mean Platelet Volume 8.6 fL (9.4-12.3); Platelet Count 266 X10*3/uL (160-400); Red Blood Count 3.15 X10*6/uL (4.20-5.50); Red Cell Distribution Width 15.3 % (11.0-16.0); White Blood Count 10.5 X10*3/uL (4.8-10.8)
[2022-01-01 06:33] LABS: Valproate 77.3 mcg/mL (50.0-100.0)
[2022-01-01 06:37] LABS: Anion Gap 10 (12-20); Blood Urea Nitrogen 15 mg/dL (9-16); Calcium 8.1 mg/dL (8.4-10.2); Carbon Dioxide 28 mmol/L (22-29); Chloride 108 mmol/L (96-108); Creatinine Clr Calc Pharmacy 72.1; Estimated Glomerular Filt Rate > 60; Glucose Random 83 mg/dL (60-115); Potassium 3.6 mmol/L (3.3-5.1); Sodium 142 mmol/L (135-145)
[2022-01-01 07:47] VITALS: BP 118/70; PULSE 98; RESP 16; TEMP 37; O2SAT 95
[2022-01-01] MEDS: Apixaban 5 MG TABLET 10 MG PO ×2 (08:42→21:18)
[2022-01-01] MEDS: Docusate Sodium 100 MG CAPSULE PO ×2 (08:42→21:18)
[2022-01-01] MEDS: 0.9 % Sodium Chloride Flush 3 ML SYRINGE IVFLUSH ×3 (08:42→21:19)
[2022-01-01] MEDS: Atorvastatin Calcium 80 MG TABLET PO (08:42)
--- NOTE | 2022-01-01 10:52 | P.PNIM_ITS ---
Subjective Subjective Date of Service: 01/01/22 Interval History: complaining of left thigh pain, feel it is infected, complaining of being incontinent, requiring straight catheterization for bladder scan > 400s, denies urinary burning, no fevers no chills no other acute issues overnight, admits to drinking fluids, no nausea, no vomiting, no complain of sore throat. Review of Systems Review of Systems: Yes all other systems are reviewed and are negative Physical Exam Verdana 4l Vital Signs: Verdana 4d Verdana 4d Vital Signs: Verdana 4d Verdana 4Bd Last Vital Signs Verdana 4d Project Surveyor New 4d Project Surveyor New 4d Temp 98.6 F 01/01/22 07:47 Project Surveyor New 4d Pulse 98 01/01/22 07:47 Project Surveyor New 4d Resp 16 01/01/22 07:47 BP 118/70 01/01/22 07:47 Pulse Ox 95 01/01/22 07:47 BMI result Body Mass Index 22.3 Const: Other: General? awake alert, no acute distress.? HEENT pupil equal round reactive to light and accommodation Neck supple no JVD. CVS? regular rate rhythm, Respiratory lungs clear to auscultation, no respiratory distress, no wheeze, no rhonchi. Gastrointestinal abdomen soft, nontender, bowel sounds audible Extremities? left lower extremity swelling? improved significantly since admission, no redness no warmth no evidence of infection,good peripheral pulses, no skin mottling Neuro nonfocal ,speech clear. psych?appropriate affect, More interactive Objective Data Active Medications Acetaminophen (Acetaminophen 325 Mg Tablet) 650 mg PO Q6H PRN PRN Reason: Pain, Mild (Pain Scale 1-3) Last Admin: 12/31/21 21:42 Dose: 650 mg Documented by: NAUMOC Apixaban (Apixaban 5 Mg Tablet) 10 mg PO BID [facility] Stop: 01/05/22 21:01 Last Admin: 01/01/22 08:42 Dose: 10 mg Documented by: DOBROB Atorvastatin Calcium (Atorvastatin Calcium 80 Mg Tablet) 80 mg PO DAILY [facility] Last Admin: 01/01/22 08:42 Dose: 80 mg Documented by: BROFadi Benzocaine (Throat Lozenge, Medicated Lozenge) 1 lozenge MUCOUS MEM Q2H PRN PRN Reason: Sore Throat Last Admin: 12/31/21 11:44 Dose: 1 lozenge Documented by: GEE Cefuroxime Axetil (Cefuroxime Axetil 250 Mg Tablet) 250 mg PO Q12H [facility] Last Admin: 01/01/22 03:36 Dose: 250 mg Documented by: ZINA Divalproex Sodium (Divalproex Sodium Sprinkles 125 Mg ) 500 mg PO BEDTIME [facility] Last Admin: 12/31/21 21:45 Dose: 500 mg Documented by: ZINA Docusate Sodium (Docusate Sodium 100 Mg Capsule) 100 mg PO BID [facility] Last Admin: 01/01/22 08:42 Dose: 100 mg Documented by: GEE Olanzapine (Olanzapine 10 Mg Tablet) 20 mg PO BEDTIME [facility] Last Admin: 12/31/21 21:44 Dose: 20 mg Documented by: ZINA Ondansetron HCl (Ondansetron Hcl 4 Mg/2 Ml Vial) 4 mg IVPUSH Q8H PRN PRN Reason: Nausea and Vomiting Pharmacy Consult (Consult Rx Perform Med Rec) 1 each MISCELLANE ONCE PRN PRN Reason: Consult order Sodium Chloride (0.9 % Sodium Chloride Flush 3 Ml Syringe) 3 ml IVFLUSH QSHIFT [facility] Last Admin: 01/01/22 08:42 Dose: 3 ml Documented by: GEE Tamsulosin HCl (Tamsulosin Hcl 0.4 Mg Capsule) 0.4 mg PO BEDTIME [facility] Last Admin: 12/31/21 21:44 Dose: 0.4 mg Documented by: ZINA Trazodone HCl (Trazodone Hcl 50 Mg Tablet) 50 mg PO BEDTIME PRN PRN Reason: Insomnia Labs CBC & Chem 7: 01/01/22 05:31 01/01/22 05:31 Labs: Laboratory Results - last 24 hr 12/27/21 12/28/21 12/30/21 11:27 07:03 05:46 Hct 40.4 D 35.6 L 30.6 L MCV MCH MCHC RDW Plt Count MPV Absolute Nucleated RBC Nucleated RBC % (auto) Anion Gap Estim Creat Clear Calc Estimated GFR Random Glucose Calcium Valproic Acid COVID-19 ([facility]) COVID-19 Clin Com 02/03/1801/01/22 01/01/22 14:30 05:31 05:31 Hct MCV 90.5 MCH 28.6 MCHC 31.6 RDW 15.3 Plt Count 266 MPV 8.6 L Absolute Nucleated RBC 0.000 Nucleated RBC % (auto) 0.0 Anion Gap 10 L Estim Creat Clear Calc 72.1 Estimated GFR > 60 Random Glucose 83 Calcium 8.1 L D Valproic Acid 77.3 COVID-19 ([facility]) Negative COVID-19 Clin Com See Note Microbiology Microbiology Results: Microbiology 12/30/21 Unknown Urine Culture - Final Urine clean catch - Urine lo top Assessment and Plan (1) Pulmonary emboli: Status: Acute (2) Acute deep vein thrombosis (DVT) of left lower extremity: Status: Acute (3) Valproic acid toxicity: Status: Acute (4) Physical deconditioning: Status: Acute (5) Bipolar 1 disorder: Status: Acute Plan 71-year-old female patient with past medical history significant for bipolar disorder recently discharged from [facility] on 11/23 after being treated for Depakote toxicity, decreased mobility and was sent to short-term rehab, patient came to [facility] today due to generalized weakness, decreased mobility, decreased by mouth intake with left lower extremity significant swelling and discomfort, patient diagnosed to have extensive left lower leg DVT in bilateral PE? with elevated Depakote level ?extensive left lower extremity DVT and bilateral PE ?significant improvement in left lower extremity swelling, complaining of pain today, examination is benign no evidence of infection left hip good range of motion, normal WBC, will follow closely ?s/p subQ Lovenox b.i.d. times 48 hours now on Eliquis 10 mg by mouth b.i.d. day 01/31 ?evaluated by Dr. Duarte he does not feel patient is candidate for intervention due to low platelet count,and poor ambulating status ?elevated Depakote level ?patient was discharged home on 500 mg of Depakote at bedtime, however med reconciliation shows patient was taking 750 mg of Depakote ? placed back on Depakote 500 mg at bedtime , seen by psych they agree to continue current dose of Depakote no other medication changes recommended Depakote level normalized from 112.3 to 85.8 repeat Depakote level this morning is 77.3 Urinary retention bladder scan >400 , continue Flomax 0.4 mg, straight cath Q shift for bladder scan greater than 400 encourage by mouth fluids , renal ultrasound unremarkable will give voiding trial urinary tract infection UA positive patient is symptomatic urine culture grew mixed bacterial bisi greater than 100,000, continue Ceftin 250mg bid to finish course of antibiotics since that will cover pharyngitis also. pharyngitis with dysphagia improved,continue antibiotic as above , continue lozenges.no thrush ?elevated troponin patient with no chest pain, no shortness of breath, likely related to PE, EKG? with poor baseline ,repeat EKG shows artifact, normal sinus rhythm and nonspecific T-wave abnormality, no further workup warranted ?history of bipolar disorder ?continue olanzapine,? and low-dose Depakote ?hypertension? blood pressure? remains low, continue to hold lisinopril normocytic anemia on Eliquis drop in hematocrit will check stool guaiacs follow CBC hyperlipidemia continue statin ?Code status patient has MOLST form indicating DNR DNI ?DVT prophylaxis on Lovenox ?disposition PT recommend short-term rehab,Cm arranging for safe discharge Quality Stroke Does the patient have a stroke diagnosis?: No VTE Prior VTE?: No VTE Risk Level:: Medical - moderate - high VTE Device Contraindication: Treatment Not Indicated VTE Drug Contraindication: N/A - Med Ordered
[2022-01-01 11:31] VITALS: BP 136/75; PULSE 104; RESP 16; TEMP 37.1; O2SAT 96
[2022-01-01] MEDS: oxyCODONE HCl Immed Release 5 MG TABLET PO (13:31)
--- NOTE | 2022-01-01 13:49 | MHC.CM.PN ---
PT CLEARED TO DC TO [facility] HOWEVER [employer] HAS NOT YET COMPLETED REVIEW FOR STEP DOWN AUTHORIZATION. PT WILL DC VIA S PENDING INSURANCE AUTH
[2022-01-01 15:33] VITALS: BP 126/84; PULSE 99; RESP 18; TEMP 36.3; O2SAT 96
--- NOTE | 2022-01-01 19:09 | PC.NURSE ---
Patient unable to void, bladder scanner showed 554ml, straight cath performed and 600ml dark alisson urine drained. Patient tolerated procedure well.
[2022-01-01 19:38] VITALS: BP 101/67; PULSE 96; RESP 16; TEMP 36.9; O2SAT 95
[2022-01-01] MEDS: Tamsulosin HCL 0.4 MG CAPSULE PO (21:18)
[2022-01-01] MEDS: OLANZapine 10 MG TABLET 20 MG PO (21:18)
[2022-01-01] MEDS: Divalproex Sodium Sprinkles 125 MG CAP.DR.SPR 500 MG PO (21:19)
[2022-01-02] VITALS (7 sets, daily range): BP systolic 100–137; BP diastolic 60–86; PULSE 93–112; RESP 14–20; TEMP 36.4–37.2; O2SAT 91–96
[2022-01-02 05:32] LABS: OBS Int Ctl Valid YES; OBS1 POSITIVE (NEGATIVE)
[2022-01-02 06:07] LABS: Hematocrit 28.5 % (37.0-47.0); Hemoglobin 9.1 g/dl (12.0-16.0)
[2022-01-02] MEDS: 0.9 % Sodium Chloride Flush 3 ML SYRINGE IVFLUSH ×2 (10:07→15:15)
[2022-01-02] MEDS: Apixaban 5 MG TABLET 10 MG PO ×2 (10:08→19:56)
[2022-01-02] MEDS: Docusate Sodium 100 MG CAPSULE PO ×2 (10:08→19:55)
[2022-01-02] MEDS: Atorvastatin Calcium 80 MG TABLET PO (10:08)
[2022-01-02] MEDS: Pramoxine HCl 1 % Rectal Foam 15 GM 1 APPL PR (12:36)
--- NOTE | 2022-01-02 12:51 | P.PNIM_ITS ---
Subjective Subjective Date of Service: 01/02/22 Interval History: complaining of rectal pain, had constipation few days ago, now resolved, noted to have hemorrhoids, left thigh pain has improved, requiring intermittent straight catheterization, refusing out of bed to chair. no nausea, no vomiting, tolerating diet, no fevers, no chills. Review of Systems Review of Systems: Yes all other systems are reviewed and are negative Physical Exam Verdana 4l Vital Signs: Verdana 4d Verdana 4d Vital Signs: Verdana 4d Verdana 4Bd Last Vital Signs Verdana 4d Tour Operator New 4d Tour Operator New 4d Temp 98.6 F 01/02/22 11:37 Tour Operator New 4d Pulse 93 01/02/22 11:37 Tour Operator New 4d Resp 18 01/02/22 11:37 BP 103/69 01/02/22 11:37 Pulse Ox 94 01/02/22 11:37 BMI result Body Mass Index 22.3 Const: Other: General? awake alert, no acute distress.? Neck supple no JVD. CVS? regular rate rhythm, Respiratory lungs clear to auscultation, no respiratory distress, no wheeze, no rhonchi. Gastrointestinal abdomen soft, nontender, bowel sounds audible Rectal exam positive external hemorrhoids no bleeding noted, stool guaiac positive back examination no swelling, no tenderness, no discoloration. Extremities? left lower extremity swelling? improved significantly since admission, no redness no warmth no evidence of infection,good peripheral pulses Neuro nonfocal ,speech clear. psych?appropriate affect Objective Data Active Medications Acetaminophen (Acetaminophen 325 Mg Tablet) 650 mg PO Q6H PRN PRN Reason: Pain, Mild (Pain Scale 1-3) Last Admin: 12/31/21 21:42 Dose: 650 mg Documented by: NAUMOC Apixaban (Apixaban 5 Mg Tablet) 10 mg PO BID [facility] Stop: 01/05/22 21:01 Last Admin: 01/02/22 10:08 Dose: 10 mg Documented by: DOBROFadi Atorvastatin Calcium (Atorvastatin Calcium 80 Mg Tablet) 80 mg PO DAILY [facility] Last Admin: 01/02/22 10:08 Dose: 80 mg Documented by: GEE Benzocaine (Throat Lozenge, Medicated Lozenge) 1 lozenge MUCOUS MEM Q2H PRN PRN Reason: Sore Throat Last Admin: 12/31/21 11:44 Dose: 1 lozenge Documented by: GEE Cefuroxime Axetil (Cefuroxime Axetil 250 Mg Tablet) 250 mg PO Q12H [facility] Last Admin: 01/02/22 03:26 Dose: 250 mg Documented by: ZINA Divalproex Sodium (Divalproex Sodium Sprinkles 125 Mg Adryan.) 500 mg PO BEDTIME [facility] Last Admin: 01/01/22 21:19 Dose: 500 mg Documented by: ZINA Docusate Sodium (Docusate Sodium 100 Mg Capsule) 100 mg PO BID [facility] Last Admin: 01/02/22 10:08 Dose: 100 mg Documented by: GEE Olanzapine (Olanzapine 10 Mg Tablet) 20 mg PO BEDTIME [facility] Last Admin: 01/01/22 21:18 Dose: 20 mg Documented by: ZINA Ondansetron HCl (Ondansetron Hcl 4 Mg/2 Ml Vial) 4 mg IVPUSH Q8H PRN PRN Reason: Nausea and Vomiting Oxycodone HCl (Oxycodone Hcl Immed Release 5 Mg Tablet) 5 mg PO Q6H PRN PRN Reason: Pain, Severe (Pain Scale 7-10) Last Admin: 01/01/22 13:31 Dose: 5 mg Documented by: GEE Pharmacy Consult (Consult Rx Perform Med Rec) 1 each MISCELLANE ONCE PRN PRN Reason: Consult order Pramoxine HCl (Pramoxine Hcl 1 % Rectal Foam 15 Gm) 1 appl PA BID [facility] Last Admin: 01/02/22 12:36 Dose: 1 appl Documented by: GEE Sodium Chloride (0.9 % Sodium Chloride Flush 3 Ml Syringe) 3 ml IVFLUSH QSHIFT [facility] Last Admin: 01/02/22 10:07 Dose: 3 ml Documented by: GEE Tamsulosin HCl (Tamsulosin Hcl 0.4 Mg Capsule) 0.4 mg PO BEDTIME [facility] Last Admin: 01/01/22 21:18 Dose: 0.4 mg Documented by: ZINA Trazodone HCl (Trazodone Hcl 50 Mg Tablet) 50 mg PO BEDTIME PRN PRN Reason: Insomnia Labs CBC & Chem 7: 01/02/22 05:44 01/01/22 05:31 Labs: Laboratory Results - last 24 hr 01/02/22 04:00 Stool Occult Blood POSITIVE Microbiology Microbiology Results: Microbiology 12/27/21 11:33 Blood Culture - Final Blood - Venous No growth after 5 days. 12/27/21 11:27 Blood Culture - Final Blood - Venous No growth after 5 days. Assessment and Plan (1) Pulmonary emboli: Status: Acute (2) Acute deep vein thrombosis (DVT) of left lower extremity: Status: Acute (3) Valproic acid toxicity: Status: Acute (4) Physical deconditioning: Status: Acute (5) Bipolar 1 disorder: Status: Acute Plan 71-year-old female patient with past medical history significant for bipolar disorder recently discharged from [facility] on 11/23 after being treated for Depakote toxicity, decreased mobility and was sent to short-term rehab, patient came to [facility] today due to generalized weakness, decreased mobility, decreased by mouth intake with left lower extremity significant swelling and discomfort, patient diagnosed to have extensive left lower leg DVT in bilateral PE? with elevated Depakote level ?extensive left lower extremity DVT and bilateral PE ?significant improvement in left lower extremity swelling, less pain this morning,on oxycodone prn ?s/p subQ Lovenox b.i.d. times 48 hours now on Eliquis 10 mg by mouth b.i.d. day 03/03 ?evaluated by Dr. Duarte he does not feel patient is candidate for intervention due to low platelet count,and poor ambulating status ?elevated Depakote level Depakote level returned to normal, placed back on Depakote 500 mg at bedtime , seen by psych they agree to continue current dose of Depakote no other me dication changes recommended Depakote level improved from 112.3 to 85.8 and now 77.3 Urinary retention bladder scan >400 , continue Flomax 0.4 mg, straight cath Q shift for bladder scan greater than 400 encourage by mouth fluids , renal ultrasound unremarkable will give voiding trial ? urinary tract infection UA positive patient symptomatic urine culture grew mixed bacterial bisi greater than 100,000, will finish total 5 day course of antibiotic pharyngitis with dysphagia improved,continue antibiotic as above , continue lozenges.no thrush ?elevated troponin patient with no chest pain, no shortness of breath, likely related to PE, EKG? with poor baseline ,repeat EKG shows artifact, normal sinus rhythm and nonspecific T-wave abnormality, no further workup warranted ?history of bipolar disorder ?continue olanzapine,? and low-dose Depakote , seen by psych no further medicat ion adjustment recommended. ?hypertension? blood pressure? remains low, continue to hold lisinopril normocytic anemia on Eliquis drop in hematocrit noted, repeat hematocrit stable likely due to hemorrhoidal bleed, follow CBC hyperlipidemia continue statin ?Code status patient has MOLST form indicating DNR DNI ?DVT prophylaxis on Lovenox ?disposition PT recommend short-term rehab,Cm arranging for safe discharge Quality Stroke Does the patient have a stroke diagnosis?: No VTE Prior VTE?: No VTE Risk Level:: Medical - moderate - high VTE Device Contraindication: Treatment Not Indicated VTE Drug Contraindication: N/A - Med Ordered
[2022-01-02] MEDS: OLANZapine 10 MG TABLET 20 MG PO (19:55)
[2022-01-02] MEDS: Tamsulosin HCL 0.4 MG CAPSULE PO (19:55)
[2022-01-02] MEDS: Divalproex Sodium Sprinkles 125 MG CAP.DR.SPR 500 MG PO (19:56)
[2022-01-03] MEDS: 0.9 % Sodium Chloride Flush 3 ML SYRINGE IVFLUSH ×2 (01:37→06:54)
[2022-01-03 03:35] VITALS: BP 113/71; PULSE 93; RESP 14; TEMP 36.1; O2SAT 94
[2022-01-03 05:44] LABS: Hematocrit 31.7 % (37.0-47.0); Hemoglobin 10.3 g/dl (12.0-16.0)
[2022-01-03] MEDS: Atorvastatin Calcium 80 MG TABLET PO (06:54)
[2022-01-03] MEDS: Apixaban 5 MG TABLET 10 MG PO (06:54)
[2022-01-03] MEDS: Pramoxine HCl 1 % Rectal Foam 15 GM 1 APPL PR (06:54)
[2022-01-03] MEDS: oxyCODONE HCl Immed Release 5 MG TABLET PO ×2 (06:54→12:03)
[2022-01-03] MEDS: Docusate Sodium 100 MG CAPSULE PO (06:54)
[2022-01-03 07:11] VITALS: BP 155/97; PULSE 101; RESP 18; TEMP 37; O2SAT 95
--- NOTE | 2022-01-03 09:47 | PC.NURSE ---
Skin/assessment completed. Patient has slight pinkness and warmth to LLE which is improving daily. No open areas noted on leg or buttocks. Skin intact.
[2022-01-03 11:20] VITALS: BP 111/69; PULSE 95; RESP 16; TEMP 36.3; O2SAT 95
--- NOTE | 2022-01-03 11:59 | P.DS_ITS ---
DS: Providers Provider Date of Service: 01/03/22 Date of admission: 12/27/21 14:35 Primary care physician: Unknown Physician Consults: 12/27/21 14:47 Consult to Vascular Surgery Routine Consulting Provider: Meliton Duarte Reason for consultation: extensive left lower extremity DVT/ bilateral PE Has provider been notified: No 12/27/21 14:56 Consult to Psychiatry Routine Consulting Provider: Blanca Thomas Reason for consultation: bipolar withdrawn/elevated depakote Has provider been notified: No DS: Diagnosis Discharge Diagnosis (1) Pulmonary emboli: Status: Acute (2) Acute deep vein thrombosis (DVT) of left lower extremity: Status: Acute (3) Valproic acid toxicity: Status: Acute (4) Physical deconditioning: Status: Acute (5) Bipolar 1 disorder: Status: Acute DS: Summary Hospital Course Hospital Course: Chief Complaint:? generalized weakness/ left lower extremity pain and swelling ?71-year-old female patient past medical history of bipolar disorder, recently discharged from [facility] after being treated for Depakote toxicity, patient was sent to short-term rehab on low dose of Depakote, patient returned to [facility] today due to increasing weakness with decreased by mouth intake, decreased ambulation? symptoms ongoing for greater than a week, patient also complained of left leg swelling and pain, patient called her therapist but was not willing to speak with her on the phone therefore therapist got concerned and EMS was called, at present patient complaining of feeling cold otherwise denies chest pain, no palpitations, denies shortness of breath, denies nausea, vomiting, abdominal pain headache or dizziness, workup in the emergency room showed extensive left lower extremity DVT and bilateral PE, also noted to have elevated Depakote level and elevated troponin. hospital course 71-year-old female patient with past medical history significant for bipolar disorder recently discharged from [facility] on 11/23 after being treated for Depakote toxicity, decreased mobility and was sent to short-term rehab, patient came to [facility] today due to generalized weakness, decreased mobility, decreased by mouth intake with left lower extremity significant swelling and discomfort, patient diagnosed to have extensive left lower leg DVT in bilateral PE? with elevated Depakote level ?Extensive left lower extremity DVT and bilateral PE, patient admitted to intermediate care unit treated with Lovenox subcu twice daily for 48 hours [facility], will need 2 more days of Eliquis 10 mg b.i.d.than Eliquis 5 mg by mouth b.i.d. for 4 months, left lower extremity swelling has significantly improved patient oxygenation is stable with no chest pain, no palpitation patient evaluated by Dr. Duarte he felt patient is not a candidate for intervention due to low platelet count and poor ambulating status patient is now being discharged to rehab facility, due to weakness, unsteady gait, for left leg pain recommend to use oxycodone as needed for severe pain and Tylenol for mild pain. DVT/PE likely due to decreased mobility ? Elevated Depakote level patient dose of Depakote has been reduced to 500 mg at bedtime Depakote level improved from 112-85 patient of elevated by psych and they recommend to continue current dose of Depakote,if patient unable to swallow Depakote tablet than it can be changed to Depakote Sprinkles 500 mg at bedtime during hospitalization patient noted to have urinary retention bladder scan around 400 range therefore required straight cath urinalysis came back positive therefore treated 5 days of antibiotic, however urine culture came back negative, encouraged to drink fluids and ambulate, also started on low-dose Flomax,if retention persists can have urology follow-up, patient has been noted to be incontinent of urine, recommend to check bladder scan q.shift if no void. mild pharyngitis resolved. elevated troponin patient with no chest pain, no shortness of breath, likely related to PE, EKG? with poor baseline ,repeat EKG shows artifact, normal sinus rhythm and nonspecific T-wave abnormality history of bipolar disorder?continue olanzapine,? and low-dose Depakote hypertension? Due to low blood pressure lisinopril has been discontinued hyperlipidemia continue statin External hemorrhoids with constipation, continue rectal cream and stool softeners. Time Spent with Patient Time attestation: Total time spent providing and/or coordinating discharge services: Discharge coordination time: Greater than 30 minutes Quality: Stroke Does the patient have a stroke diagnosis?: No Physical Exam Verdana 4l Vital Signs: Verdana 4d Verdana 4d Vital Signs: Verdana 4d Verdana 4Bd Last Vital Signs Verdana 4d Netezza Developer New 4d Netezza Developer New 4d Temp 97.7 F 12/31/21 10:49 Netezza Developer New 4d Pulse 101 H 12/31/21 10:49 Netezza Developer New 4d Resp 18 12/31/21 10:49 BP 100/59 L 12/31/21 10:49 Pulse Ox 94 12/31/21 10:49 BMI result Body Mass Index 22.3 Const: Other: General? awake alert, no acute distress.? HEENT pupil equal round reactive to light and accommodation. Oral examination mild pharyngeal hyperemia Neck supple no JVD. CVS? regular rate rhythm, Respiratory lungs clear to auscultation, no respiratory distress, no wheeze, no rhonchi. Gastrointestinal abdomen soft, nontender, bowel sounds audible Extremities? left lower extremity swelling significantly improved, Pain with activity,good peripheral pulses. rectal exam external hemorrhoids no bleeding Neuro nonfocal ,speech clear. psych? appropriate affect DS: Data Data Completed and Pending Labs on day of discharge: Preliminary micro results at discharge 12/27/21 11:33 Blood Culture - Preliminary Blood - Venous No growth after 48 hours. 12/27/21 11:27 Blood Culture - Preliminary Blood - Venous No growth after 48 hours. Discharge Plan Discharge Patient Disposition: [facility] Discharge Diagnosis: extensive left lower extremity DVT pulmonary emboli Depakote toxicity urinary tract infection urinary retention pharyngitis Referrals: ELEANOR BRANDON [Other] Physician,Unknown J [Primary Care Provider] - 1 Week Discharge Medications: New tamsulosin 0.4 mg Capsule 0.4 mg PO BEDTIME Qty: 30 0RF docusate sodium 100 mg Capsule 100 mg PO BID Qty: 60 0RF Cepacol Sore Throat (linette-men) 15-3.6 mg Lozenge 1 geneva mucous membrane Q2H PRN (Reason: Sore Throat) Qty: 30 0RF Eliquis 5 mg tablet 5 mg PO BID Qty: 60 0RF Rx Instructions: take Eliquis 10 mg (2 tabs 5mg ) twice daily for 2 days, followed by Eliquis 5 mg 1 tablet twice daily for 4 months polyethylene glycol 3350 17 gram Powder In Packet 17 g PO DAILY Qty: 30 0RF oxycodone 5 mg Tablet 5 mg PO Q6H PRN (Reason: Pain, Severe (Pain Scale 7-10)) Qty: 12 0RF pramoxine 1 % Foam 1 appl [place] BID Qty: 10 0RF Continued divalproex 500 mg tablet,delayed release (/EC) 500 mg PO BEDTIME 0RF olanzapine 20 mg tablet 20 mg PO BEDTIME Qty: 30 0RF trazodone 50 mg tablet 1 tab PO BEDTIME PRN (Reason: Insomnia) 30 Days Qty: 30 0RF atorvastatin 80 mg Tablet 80 mg PO DAILY 0RF Discontinued divalproex 250 mg tablet,delayed release (DR/EC) 250 mg PO DAILY 0RF lisinopril 20 mg tablet 1 tab PO DAILY 30 Days Qty: 30 0RF Discharge Orders: Discharge Order (Routine); Ordered 01/03/22 Ordered By: Stephanie Salinas Diet: low fat, low cholesterol Activity on Discharge: As tolerated Stand Alone Forms: Patient Portal Discharge page Care Plan Goals: extensive left lower extremity DVT and pulmonary embolism take Eliquis 10 mg by mouth twice daily for 2 more days and then take Eliquis 5 mg b.i.d. for 4 months and discuss with PCP if need to be continued for 6 months. urinary retention, incontinent of urine, requiring straight catheterization prn, bladder scan q.shift and if greater than 350 rec. straight cath encouraged to void, out of bed to chair has been started on Flomax 0.4 mg for urinary retention elevated Depakote level dose of Depakote reduced to 500 mg at bedtime left leg pain take as needed analgesics hemorrhoids continue rectal cream, avoid constipation Health Concerns: bipolar disorder /hypertension/hyperlipidemia take all medications as prescribed stop lisinopril due to low blood pressure Plan of Treatment: outpatient follow-up with primary care physician in 1 week, outpatient follow- up with Urology if continued to have difficulty with voiding Assessment: per discharge summary
[2022-01-03 12:01] VITALS: BP 111/69; PULSE 95; O2SAT 95
[2022-01-03] MEDS: Acetaminophen 325 MG TABLET 650 MG PO (12:02)
--- NOTE | 2022-01-03 12:02 | MHC.CM.PN ---
PT DISCHARGING TO [facility] OF PENDING INSURANCE AUTH, ACTION FOR BLS TRANSPORT
[2022-01-03] MEDS: polyethylene glycoL 3350 17 GM POWD.PACK PO ×2 (14:08→14:09)
--- NOTE | 2022-01-04 08:39 | MHC.CM.PN ---
POST D/C NOTE: D/C SUMMARY ADDENDED W/LESS THAN 30 DAY, SUMMARY PRINTED AND FAXED TO [facility] [phone], CONFIRMATION RECEIVED AT 8:40AM. COPY ALSO UPLOADED & SENT VIA [employer].
== END 2022-01-03 15:22 | disposition skilled nursing facility (03) | DRG 299 ==
LOC: HO.ED 13:29 → HO.EDOVER 14:56 → HO.IMC 15:39 → HO.S3 01-02 16:38
PROVIDERS: Nurse Practitioner Family; Admitting Provider Hospitalist; Emergency Provider Emergency Medicine Emergency Medical Services; PCP Internal Medicine; Visit Provider Hospitalist
DX: I82.492 Acute embolism and thrombosis of other specified deep vein of left lower extremity (principal); I26.99 Other pulmonary embolism without acute cor pulmonale; N39.0 Urinary tract infection, site not specified; Y92.9 Unspecified place or not applicable; F31.9 Bipolar disorder, unspecified; I10 Essential (primary) hypertension; R33.9 Retention of urine, unspecified; R13.10 Dysphagia, unspecified; J02.9 Acute pharyngitis, unspecified; D64.9 Anemia, unspecified; T42.6X5A Adverse effect of other antiepileptic and sedative-hypnotic drugs, initial encounter; K64.9 Unspecified hemorrhoids; K59.00 Constipation, unspecified; E78.5 Hyperlipidemia, unspecified; Z20.822 Contact with and (suspected) exposure to COVID-19; Z79.01 Long term (current) use of anticoagulants; Z79.899 Other long term (current) drug therapy; Z66 Do not resuscitate
CPT/HCPCS: 36415; 71046; 71275; 76775; 80048; 80076; 80143; 80164; 80307; 81001; 81003; 82077; 82272; 83605; 84484; 85014; 85018; 85025; 85027; 85610; 85730; 87040; 87086; 87635; 93005; 93971; 96360; 96372; 97116; 97162; 99284; 99285; J0696; J1650; Q9967

== ENCOUNTER 2025-10-09 14:50 | Outpatient (AMB) | payer OTHER, SELFPAY ==
--- NOTE | 2025-10-09 15:01 | MHC.OFFVIS ---
Intake Visit Reasons: 6m PD Accompanied by: Spouse Allergies No Known Allergies (No Known Allergies*) Allergy (Verified 10/09/25 15:05) Medication List - Last Reconciled 10/09/25 by Mely Eisenberg CNP apixaban (Eliquis) 5 mg PO BID atorvastatin 80 mg PO DAILY benzocaine-menthol 15-3.6 mg (Cepacol Sore Throat (benzocaine-menthol)) 1 geneva mucous membrane Q2H PRN carbidopa-levodopa 25-250 mg 1 tab PO TID divalproex ER 500 mg PO DAILY docusate sodium 100 mg PO BID olanzapine 20 mg PO BEDTIME oxycodone 5 mg PO Q6H PRN polyethylene glycol 3350 17 grams PO DAILY pramoxine 1% 1 appl NE BID tamsulosin 0.4 mg PO BEDTIME trazodone 1 tab PO BEDTIME PRN 30 days HPI Comments Details: 75 yo woman with diagnosis of bipolar disorder taking olanzpine and depakote was referred for hand tremor. Exam revealed mild parkinsonian features. She was doing okay. She was taking carbidopa-levodopa 25-250mg three times a day. Tremors were okay.?No functional impairment. No difficulty eating, drinking, or swallowing. No falls. No difficulty getting up from chair or turning in bed. Sleep was okay. [facility] Medical History (Updated 10/09/25 @ 15:04 by Mely Eisenberg CNP) Parkinsonism, secondary Bipolar disorder Bipolar 1 disorder Social History Household Members: None Housing: House Housing Other:: triler Do you presently have visiting nurse or other home services: Yes Alcohol intake: current Alcohol intake frequency: a few times a month Alcohol type: other Comment: asleep Patient Tobacco Use Status: Never used Tobacco e-Cigarette/Vaping Use: Never Used Second Hand Smoke Exposure: No Advance Directives Date on File: 03/19/21 service: No Current occupational status: disabled Sexual orientation: Straight/Heterosexual Review of Systems Const Denies chills, Denies daytime sleepiness, Denies difficulty sleeping, Denies fatigue, Denies fever(s), Denies frequent falls, Denies headache(s), Denies increased appetite, Denies poor appetite, Denies snoring, Denies weakness, Denies weight gain and Denies weight loss Eyes Denies loss of vision ENT Denies vertigo, Denies dizziness and Denies headache(s) Card Denies chest pain at rest, Denies chest pain with activity, Denies syncope, Denies leg edema and Denies palpitations Resp Denies snoring GI Denies constipation, Denies heartburn, Denies diarrhea and Denies nausea Denies urinary frequency, Denies urinary incontinence and Denies urinary urgency Musc Reports abnormal gait (balance difficulty), Denies numbness and Denies tingling Skin/Breast Denies dry skin and Denies rash Neuro Reports abnormal gait (balance difficulty), Denies vertigo, Denies dizziness, Denies syncope, Denies frequent falls, Denies headache(s), Denies lack of coordination, Denies loss of vision, Denies memory loss, Denies numbness, Denies restless legs, Denies seizure-like activity, Denies tingling, Denies paresthesias, Reports tremor(s) and Denies weakness Psych Denies anxiety, Denies depression, Denies auditory hallucinations, Denies memory loss, Denies visual hallucinations and Denies suicidal ideation Endo Denies fatigue and Denies palpitations Physical Exam Const Other: General Appearance:? normal, in no acute distress. Skin:? no rashes, no significant birthmarks. Heart:? S1, S2 normal, no murmurs. Lungs:? clear anteriorly and posteriorly. Extremities:? no edema. Psych:? alert, oriented, cognitive function intact, cooperative with exam. Neuro Other: Mental Status:?Normal attention, orientation, memory and affect.? Cranial Nerves:?Pupils are equal, round and reactive to light. External occular muscles are intact. Visual basilio are full. Face is symmetrical. Facial sensations are normal. Tongue is midline. Palate elevates symmetrically. Shoulder shrugging is normal. Hearing to bedside conversation is normal. Motor Examination:?DTRs trace to absent. Sensory Exam:?....? Coordination:?No ataxia,?no titubation.? Gait Exam: Slow and cautious. Cerebellar Signs:?[id number]-[id number] with mild tremor. Extrapyramidal System:?Decreased facial expressions and blinking, slow paced gait, decreased arm swing. Pronator Drift:?Not present.? Involuntary Movements:?No tremors seen.? Speech:?Normal.? Results Reviewed Results Reviewed: CT brain WO at [facility] in 2022: Mod cerebral and cerebellar atrophy Assessment & Plan Assessment & Plan (1) Parkinsonism, secondary: Code(s): G21.9 - Secondary parkinsonism, unspecified Category: Medical Qualifiers: Secondary Parkinsonism type: other drug-induced Qualified Code(s): G21.19 - Other drug induced secondary parkinsonism Plan: Continue carbidopa-levodopa 25-250mg 1 tablet three times a day. Medications: New carbidopa-levodopa 25-250 mg 1 tab PO TID 270 tabs 1RF 90 days Coding Level of Care Code Est Pt Level 3 (88454) Diagnoses Other drug-induced secondary parkinsonism G21.19 Secondary Parkinsonism type: other drug-induced
--- OUTSIDE RECORDS SUMMARY | 2025-10-09 18:05 | XMS_ITS | Clinical Summary ---
Author Organization [facility] Address [address] [place] [address] Care Team Providers Care Clinic Physician Name Role Phone Chinyere Luna MD Primary Care Provider [phone] Allergies Active Allergy Reactions Criticality Noted Date Comments Sulfamethoxazole Medium 08/17/2022 Other reaction(s): Drug fever Trimethoprim Medium 08/17/2022 Other reaction(s): Drug fever Medications Medication Sig Dispensed Refills Start Date End Date Status Eliquis 5 MG TABS tablet Take 1 tablet (5 mg total) by mouth 2 (two) times a day. 0 09/14/2022 Active traZODone (DESYREL) 50 MG tablet Take 1 tablet (50 mg total) by mouth every night at bedtime. 0 07/27/2022 Active tamsulosin (FLOMAX) 0.4 MG CAPS TAKE 1 CAPSULE BY MOUTH EVERY DAY 30 MINUTES AFTER THE SAME MEAL 0 08/11/2022 Active OLANZapine (ZyPREXA) 20 MG tablet Take 1 tablet (20 mg total) by mouth every night at bedtime. 0 07/19/2022 Active docusate sodium (COLACE) 100 MG capsule Take 1 capsule (100 mg total) by mouth 2 (two) times a day. 0 07/19/2022 Active divalproex (DEPAKOTE) 500 MG 24 hr tablet Take 1 tablet (500 mg total) by mouth daily. 0 07/27/2022 Active atorvastatin (LIPITOR) tablet 80 mg Take 1 tablet (80 mg total) by mouth daily. 0 10/23/2022 Active Diclofenac Sodium 1 % GEL Apply topically. 0 06/11/2021 Active apixaban (ELIQUIS) 5 MG TABS tablet Take 1 tablet (5 mg total) by mouth daily. Taking 2 tablets daily 0 01/31/2022 Active OLANZapine (ZyPREXA) 10 MG tablet 0 09/05/2019 Active traZODone (DESYREL) 50 MG tablet Take 1 tablet (50 mg total) by mouth every night at bedtime. 0 07/27/2022 Active divalproex (DEPAKOTE) 500 MG 24 hr tablet Take 1 tablet (500 mg total) by mouth daily. 0 11/01/2022 Active Active Problems Problem Noted Date Diagnosed Date Arthritis of hip 04/10/2023 Bipolar disorder, in partial remission, most recent episode depressed 10/10/2022 Primary osteoarthritis of right knee 10/10/2022 Bilateral pulmonary embolism 10/10/2022 Family History Medical History Relation Name Comments Stroke Mother Relation Name Status Comments Mother Social History Tobacco Use Types Packs/Day Years Used Date Smoking Tobacco: Former Cigarettes Smokeless Tobacco: Never Tobacco Cessation:Counseling Given: Not Answered Alcohol Use Standard Drinks/Week Comments Not Currently 0 (1 standard drink = 0.6 oz pur e alcohol) Sex and Gender Information Value Date Recorded Sex Assigned at Not on file Gender Identity Not on file Sexual Orientation Not on file Job Start Date Occupation Industry Not on file Not on file Not on file Last Filed Vital Signs Vital Sign Reading Time Taken Comments Blood Pressure 125/86 10/11/2023 1:54 PM EST Pulse 81 10/11/2023 1:54 PM EST Temperature 36.8 C (98.2 F) 10/11/2023 1:54 PM EST Respiratory Rate - - Oxygen Saturation 97% 10/11/2023 1:54 PM EST Inhaled Oxygen Concentration - - Weight 52.1 kg (114 lb 12.8 oz) 10/11/2023 1:54 PM EST Height 154.9 cm (5' 1 ) 11/10/2022 1:47 PM EST Body Mass Index 21.69 11/10/2022 1:47 PM EST Plan of Treatment Health Maintenance Due Date Last Done Comments Hepatitis C Screening 1950 Depression Screening 1962 Preventative Health Evaluation 02/07/1968 Colon Cancer Screening (Colonoscopy) 1995 Shingrix-Zoster Vaccine (1 of 2) 02/07/2000 Fall Risk Assessment 2015 Osteoporosis Screening (DEXA Scan) 2015 DTap / Tdap / Td (2 - Td or Tdap) 01/25/2023 01/25/2013 RSV Adult > 60+ Yrs or (1 - 1-dose 75+ series) 2025 COVID-19 Vaccine ( season) 2025 03/24/2022, 08/31/2021, 02/22/2021, Additional history exists Influenza Vaccine (#1) 2025 2, 08/27/2020, 09/13/2019 Pneumococcal Vaccine Completed 07/10/2019, 02/16/20 18 Hepatitis B Vaccines Aged Out No long er eligible based on patient's age to complete this topic RSV Ped < 20 months Aged Out No longe r eligible based on patient's age to complete this topic Care Teams Clinic Physician Relationship Specialty Start Date End Date Chinyere Luna MD [address] [facility] [address] [place] [address] PCP - General Internal Medicine 07/25/22
--- OUTSIDE RECORDS SUMMARY | 2025-10-09 18:05 | XMS_ITS ---
Author Organization [facility] Care Team Providers Care Bleach Boiler Packer Name Role Phone Nika Castro Unavailable Unavailable Shae Da Silva Unavailable Unavailable Lacy Cool Unavailable Unavailable Andrzej Crawford Unavailable Unavailable Allergies and adverse reactions Code CodeSystem Substance Reaction Severity StartDate Concern Status 13272 RXNORM Sulfamethoxazole Drug-induce d hyperpyrexia (code- 953018538, SNOMED CT) Moderate 08/17/2022 active 21124 RXNORM Trimethoprim Drug-induced hyperpyrexia (code- 142355575, SNOMED CT) Moderate 08/17/2022 active Care Team Name Role Address Phone Organization Dates Shae Da Silva PCP [address] [facility] [address], [place], [address], [facility] (Office): [facility] 08/17/2022 - 08/31/2022 Nika Castro [address] [facility] [address], [address], [facility] (Office): [facility] 08/17/2022 - 08/31/2022 Lacy Cool [address], [address], [facility] (Office): [facility] 08/17/2022 - 08/31/2022 Andrzej Crawford [address] [place], [address], [place] (Office): [facility] 08/17/2022 - 08/31/2022 Immunizations Immunization Status Vaccine Details Vaccine Code CodeSystem Cj e Notes Influenza completed Influenza, split virus, trivalent, injectable, contains preservative 141 CVX created date: 08/25/2022 administered date: 07/28/2022 SARS-COV-2 (COVID-19) completed SARS-COV-2 (COVID-19) vaccine, mRNA, spike protein, LNP, preservative free, 30 mcg/0.3mL dose Step 2 of Multi-step with next step required 208 CVX created date: 08/17/2022 administered date: 02/22/2021 SARS-COV-2 (COVID-19) completed SARS-COV-2 (COVID-19) vaccine, mRNA, spike protein, LNP, preservative free, 30 mcg/0.3mL dose Step 1 of Multi-step with next step required 208 CVX created date: 08/17/2022 administered date: 02/01/2021 SARS-COV-2 (COVID-19 BOOSTER) completed SARS-COV-2 (COVID-19) vaccine, mRNA, spike protein, LNP, preservative free, 30 mcg/0.3mL dose 208 CVX created date: 08/17/2022 administered date: 03/24/2022 SARS-COV-2 (COVID-19 BOOSTER) completed SARS-COV-2 (COVID-19) vaccine, mRNA, spike protein, LNP, preservative free, 30 mcg/0.3mL dose 208 CVX created date: 08/17/2022 administered date: 08/31/2021 Mental Status Section Date Assessment Total Score Description 08/31/2022 PHQ-9 00 08/23/2022 BIMS 15 cognitively int act PHQ-9 00 Insurance Providers Problems Problem # Description Date of onset Resolved Date Code CodeSystem Concern Status 1 CONSTIPATION, UNSPECIFIED 08/18/[address] active 2 ESSENTIAL (PRIMARY) HYPERTENSION 08/18/[address] active 3 BIPOLAR DISORDER, UNSPECIFIED 08/17/[address] active 4 CONTUSION OF RIGHT FRONT WALL OF THORAX, SUBSEQUENT ENCOUNTER 08/17/[address] active 5 HISTORY OF FALLING 08/17/[address] active 6 MUSCLE WEAKNESS (GENERALIZED) 08/17/[address] active 7 OTHER ABNORMALITIES OF GAIT AND MOBILITY 08/17/[address] active 8 RETENTION OF URINE, UNSPECIFIED 08/17/[address] active 9 UNSPECIFIED FALL, SEQUELA 08/17/[address] active 10 UNSTEADINESS ON FEET 08/17/[address] active Reason for Referral No Reasons for Referral Entered Social History Social History Observation Description Start Date End Date Code Code System Current Smoking Status Tobacco smoking consumption unknown 392625620 SNOMED CT Sex Assigned At Female 1950 63538-1 [facility] Gender Identity Sexual Orientation Vital Signs Code Code System Vitals Name Values and Units Timing Information 43470-6 [facility] Pain Level Value=0.0 08/31/2022 9279-1 [facility] Respiratory Rate Value=20.0 Units=/m in 08/31/2022 8462-4 [facility] Blood Pressure-Diastolic Value=84 Un its=mmHg 08/31/2022 8480-6 [facility] Blood Pressure-Systolic Hgnoc=789 Un its=mmHg 08/31/2022 8310-5 [facility] Body Temperature Value=98.5 Units= F 08/31/2022 8867-4 [facility] Heart rate Value=87.0 Units=/min 03/2022 76655-7 [facility] O2 % BldC Oximetry Value=98.0 Units= % 08/31/2022 44443-1 [facility] Weight Whach=794.8 Units=Lbs 8302-2 [facility] Height Value=60.0 Units=Inches 08/17/2022
--- OUTSIDE RECORDS SUMMARY | 2025-10-09 18:05 | XMS_ITS | Clinical Summary ---
Author Organization [employer] Address [address] [facility] [address] [place] [address] Care Team Providers Care Vehicle Assembly Inspector Name Role Phone Unavailable Primary Care Provider Unavailabl e Social History Tobacco Use Types Packs/Day Years Used Date Smoking Tobacco: Never Assessed Comments Unknown Sex and Gender Information Value Date Recorded Sex Assigned at Female 06/03/2024 10:01 AM EDT Legal Sex Female 9:59 AM EDT Gender Identity Female 06/03/2024 10:01 AM EDT Sexual Orientation Don't know 06/03/2024 10 :01 AM EDT Plan of Treatment Health Maintenance Due Date Last Done Comments CT Colonography 1950 Colonoscopy 1950 Colorectal Cancer Screening 1950 Depression Screening 1950 FIT DNA/Cologuard 1950 FIT 1950 FOBT 1950 Lipid Panel 1950 SDOH Screening 1950 Sigmoidoscopy 1950 Alcohol/Substance Use Screening 1962 Tobacco Screening 1962 Hepatitis C Screening 02/07/1968 Zoster Vaccines (1 of 2) 02/07/2000 DTaP/Tdap/Td Vaccines (2 - T d or Tdap) 01/25/2023 01/25/2013 RSV Patients and Patients Aged 60 years or older (1 - 1-dose 75+ series) 2025 COVID-19 Vaccine ( - 2024-2 6 season) 2025 Influenza Vaccine (#1) 2025 0, 09/13/2019, 08/24/2018 Pneumococcal Vaccine: 50+ Years Completed 07/10/2019, 02/15/2018 HIB Vaccines Aged Out No longer eligi ble based on patient's age to complete this topic HPV Vaccines Aged Out No longer eligi ble based on patient's age to complete this topic Hepatitis A Vaccines Aged Out No long er eligible based on patient's age to complete this topic Hepatitis B Vaccines Aged Out No long er eligible based on patient's age to complete this topic IPV Vaccines Aged Out No longer eligi ble based on patient's age to complete this topic Meningococcal B Vaccine Aged Out No l onger eligible based on patient's age to complete this topic Meningococcal Vaccine Aged Out No yesi jovita eligible based on patient's age to complete this topic RSV under 20 months Aged Out No longe r eligible based on patient's age to complete this topic Rotavirus Vaccines Aged Out No longer eligible based on patient's age to complete this topic Insurance [facility] PPO
--- OUTSIDE RECORDS SUMMARY | 2025-10-09 18:05 | XMS_ITS ---
Author Organization [facility] Care Team Providers Care Oncology Navigator Name Role Phone Brent Ragsdale Unavailable Unavailable Sandrita Heath Unavailable Unavailable Allergies and adverse reactions No Known Allergies Care Team Name Role Address Phone Organization Dates Brent Ragsdale PCP [address], [place], [address], [place] (Office): : [facility] 11/23/2021 - 11/30/2021 Sandrita Levheim [address], [place], [address], [place] (Office): [facility] 11/23/2021 - 11/30/2021 Immunizations Immunization Status Vaccine Details Vaccine Code CodeSystem Cj e Notes TB 1 Step Mantoux (PPD) completed tuberculin skin test; unspecified formulation lotNumber: [id number] expiry: 04/28/2023 Mfg: [employer] INc Given 0.1 ml Right Forearm intradermally 98 CVX created date: 11/23/2021 consent date: 11/23/2021 administere d date: 11/23/2021 Mental Status Section Date Assessment Total Score Description 11/30/2021 BIMS 12 moderate cognit adarsh impairment CAM 0 No delirium ind icated PHQ-9 15 moderately miguel angel re depression 11/28/2021 BIMS 12 moderate cognit adarsh impairment CAM 0 No delirium ind icated PHQ-9 15 moderately miguel angel re depression Insurance Providers Problems Problem # Description Date of onset Resolved Date Code CodeSystem Concern Status 1 BIPOLAR DISORDER, CURRENT EPISODE MANIC WITHOUT PSYCHOTIC FEATURES, UNSPECIFIED 11/23/[address] active 2 ESSENTIAL (PRIMARY) HYPERTENSION 11/23/[address] active 3 HYPERLIPIDEMIA, UNSPECIFIED 11/23/[address] active 4 MUSCLE WASTING AND ATROPHY, NOT ELSEWHERE CLASSIFIED, MULTIPLE SITES 11/23/[address] active 5 POISONING BY OTHER ANTIEPILEPTIC AND SEDATIVE-HYPNOTIC DRUGS, ACCIDENTAL (UNINTENTIONAL), SUBSEQUENT ENCOUNTER 11/23/[address] active Reason for Referral No Reasons for Referral Entered Social History Social History Observation Description Start Date End Date Code Code System Current Smoking Status Tobacco smoking consumption unknown 658297892 SNOMED CT Sex Assigned At Female 1950 66377-3 [facility] Gender Identity Sexual Orientation Vital Signs Code Code System Vitals Name Values and Units Timing Information 25173-7 [facility] Pain Level Value=0.0 11/30/2021 8462-4 [facility] Blood Pressure-Diastolic Value=86 Un its=mmHg 11/30/2021 8480-6 [facility] Blood Pressure-Systolic Otjwi=454 Un its=mmHg 11/30/2021 8867-4 [facility] Heart rate Value=97.0 Units=/min 02/2022 9279-1 [facility] Respiratory Rate Value=18.0 Units=/m in 11/30/2021 8310-5 [facility] Body Temperature Value=97.9 Units= F 11/30/2021 42525-5 [facility] O2 % BldC Oximetry Value=95.0 Units= % 11/30/2021 30726-0 [facility] Weight Vglei=158.4 Units=Lbs 8302-2 [facility] Height Value=64.0 Units=Inches 11/23/2021
--- OUTSIDE RECORDS SUMMARY | 2025-10-09 18:06 | XMS_ITS ---
Author Organization [facility] Care Team Providers Care Training Consultant Name Role Phone Johana Barahona Unavailable Unavailable Ghanshyam Nathan Unavailable Unavailable Ramsey Benson Unavailable Unavailable Ramsey Benson Unavailable Unavailable Dinah Holm Unavailable Unavailable Allergies and adverse reactions Code CodeSystem Substance Reaction Severity StartDate Concern Status Sulfamethoxazole /Trimethop rim Moderate 11/07/2023 active Care Team Name Role Address Phone Organization Dates Ramsey Benson PCP [address] [address], [place], [address], [place] (Office): : [facility] 11/07/2023 - 11/18/2023 Johana Barahona [address] [place], [address], [place] (Office): : [facility] 11/07/2023 - 11/18/2023 Ghanshyam Nathan [address] [place] [address], [place], [address], [place] (Office): [facility] 11/07/2023 - 11/18/2023 Ramsey Benson [address] [facility] [address], [place], [address], [place] (Office): : [facility] 11/07/2023 - 11/18/2023 Dinah Holm [address] [place] [address] , [place], [address], [place] (Office): [facility] 11/07/2023 - 11/18/2023 Immunizations Immunization Status Vaccine Details Vaccine Code CodeSystem Date Notes TB 1 Step Mantoux (PPD) completed tuberculin skin test; unspecified formulation lotNumber: [id number] expiry: 07/28/2024 Mfg: [employer] Given 0.1 ml Right Forearm intradermally 98 CVX created date: 11/07/2023 consent date: 11/07/2023 administer ed date: 11/07/2023 PPSV23 (Pneumococcal) Dose 1 completed pneumococcal polysaccharide vaccine, 23 valent 33 CVX created date: 11/14/2023 administer ed date: 07/10/2019 Influenza (high dose) cancelled Influenza, high-dose, split virus, trivalent, injectable, preservative free 135 CVX created date: 11/15/2023 consent date: 11/15/2023 Educated by on 11/15/2023 COVID-19 Vaccine Dose 1 completed unknown vaccine or immune globulin 999 CVX created date: 11/14/2023 administer ed date: 02/01/2021 Pulled from [employer] COVID-19 Vaccine Dose 2 completed unknown vaccine or immune globulin 999 CVX created date: 11/14/2023 administer ed date: 02/22/2021 Pulled from [employer] SARS-COV(COVID-1 9) booster completed SARS-COV-2 (COVID-19) vaccine, mRNA, spike protein, LNP, preservative free, 30 mcg/0.3mL dose 208 CVX created date: 11/14/2023 administer ed date: 03/24/2022 Pulled from [employer] SARS-COV(COVID-1 9) booster completed SARS-COV-2 (COVID-19) vaccine, mRNA, spike protein, LNP, preservative free, 30 mcg/0.3mL dose 208 CVX created date: 11/14/2023 administer ed date: 08/31/2021 PCV20 cancelled Pneumococcal conjugate vaccine 20-valent (PCV20), polysaccharide [id number] conjugate, adjuvant, preservative free 216 CVX created date: 11/15/2023 consent date: 11/15/2023 Educated by Gretel Stephens on 11/15/2023 Comirnaty (Restore Water) COVID19 [id number] cancelled SARS-COV-2 (COVID-19) vaccine, mRNA, spike protein, LNP, preservative free, 30 mcg/0.3mL dose, sebas-sucrose formulation 217 CVX created date: 11/15/2023 consent date: 11/15/2023 Educated by Gretel Stephens on 11/15/2023 Mental Status Section Date Assessment Total Score Description 11/18/2023 BIMS 14 cognitively int act CAM 0 No delirium ind icated PHQ-9 01 minimal depress ion 11/09/2023 BIMS 14 cognitively int act CAM 0 No delirium ind icated PHQ-9 01 minimal depress ion Insurance Providers Problems Problem # Description Date of onset Resolved Date Code CodeSystem Concern Status 1 BIPOLAR DISORDER, UNSPECIFIED 11/07/[address] active 2 BODY MASS INDEX [BMI] 21.0-21.9, ADULT 11/07/[address] active 3 COVID-19 11/07/[address] active 4 DIFFICULTY IN WALKING, NOT ELSEWHERE CLASSIFIED 11/07/[address] active 5 ESSENTIAL (PRIMARY) HYPERTENSION 11/07/[address] active 6 HYPERLIPIDEMIA, UNSPECIFIED 11/07/[address] active 7 OTHER LACK OF COORDINATION 11/07/[address] active 8 OTHER MALAISE 11/07/[address] act adarsh 9 RETENTION OF URINE, UNSPECIFIED 11/07/[address] active 10 UNSPECIFIED PROTEIN-CALORIE MALNUTRITION 11/07/[address] active Reason for Referral No Reasons for Referral Entered Social History Social History Observation Description Start Date End Date Code Code System Current Smoking Status Tobacco smoking consumption unknown 487773690 SNOMED CT Sex Assigned At Female 1950 [address]4594-6 [facility] Gender Identity Sexual Orientation Vital Signs Code Code System Vitals Name Values and Units Timing Information 07344-2 [facility] Pain Level Value=0.0 11/18/2023 9279-1 [facility] Respiratory Rate Value=18.0 Units=/m in 11/17/2023 8462-4 [facility] Blood Pressure-Diastolic Value=85 Un its=mmHg 11/17/2023 8480-6 [facility] Blood Pressure-Systolic Hziph=082 Un its=mmHg 11/17/2023 8310-5 [facility] Body Temperature Value=97.5 Units= F 11/17/2023 8867-4 [facility] Heart rate Value=80.0 Units=/min 85570-4 [facility] O2 % dC Oximetry Value=95.0 Units= % 11/17/2023 45988-9 [facility] Weight Dqvzg=228.6 Units=Lbs 8302-2 [facility] Height Value=61.0 Units=Inches 11/07/2023
--- OUTSIDE RECORDS SUMMARY | 2025-10-09 18:06 | XMS_ITS ---
Author Organization [facility] Care Team Providers Care Senior Cost Analyst Name Role Phone Elsa Dominguez Unavailable Unavailable Alyce Aldridge Unavailable Allergies and adverse reactions No Known Allergies Care Team Name Role Address Phone Organization Dates Alyce Aldridge PCP [address] [facility] [address], [place], [address], [place] (Office): : [facility] 01/03/2022 - 01/20/2022 [place], [address], [facility] (Office): : [facility] 01/03/2022 - 01/20/2022 Mental Status Section Date Assessment Total Score Description 01/20/2022 BIMS 14 cognitively int act CAM 0 No delirium ind icated PHQ-9 00 01/10/2022 BIMS 14 cognitively int act CAM 0 No delirium ind icated PHQ-9 02 minimal depress ion Insurance Providers Problems Problem # Description Date of onset Resolved Date Code CodeSystem Concern Status 1 ACUTE EMBOLISM AND THROMBOSIS OF UNSPECIFIED DEEP VEINS OF LEFT LOWER EXTREMITY 01/03/[address] active 2 BIPOLAR DISORDER, UNSPECIFIED 01/03/[address] active 3 ESSENTIAL (PRIMARY) HYPERTENSION 01/03/[address] active 4 HYPERLIPIDEMIA, UNSPECIFIED 01/03/[address] active 5 OTHER ABNORMALITIES OF GAIT AND MOBILITY 01/03/[address] active 6 OTHER PULMONARY EMBOLISM WITHOUT ACUTE COR PULMONALE 01/03/[address] active 7 OTHER REDUCED MOBILITY 01/03/[address] active 8 RETENTION OF URINE, UNSPECIFIED 01/03/[address] active 9 WEAKNESS 01/03/[address] active Reason for Referral No Reasons for Referral Entered Social History Social History Observation Description Start Date End Date Code Code System Current Smoking Status Tobacco smoking consumption unknown 314961767 SNOMED CT Sex Assigned At Female 1950 [address]140-8 [facility] Gender Identity Sexual Orientation Vital Signs Code Code System Vitals Name Values and Units Timing Information 07749-9 [facility] Pain Level Value=0.0 01/20/2022 22028-1 [facility] Weight Sqpte=157.0 Units=Lbs 05/2022 9279-1 [facility] Respiratory Rate Value=20.0 Units=/m in 01/03/2022 8462-4 [facility] Blood Pressure-Diastolic Value=83 Un its=mmHg 01/03/2022 8480-6 [facility] Blood Pressure-Systolic Dyiub=974 Un its=mmHg 01/03/2022 8310-5 [facility] Body Temperature Value=97.0 Units= F 01/03/2022 8867-4 [facility] Heart rate Value=86.0 Units=/min 05/2022 8302-2 [facility] Height Value=61.0 Units=Inches 01/03/2022
--- OUTSIDE RECORDS SUMMARY | 2025-10-09 18:06 | XMS_ITS | Data Portability ---
Author Organization [place] [facility] [place] Address [address] [place] [address] Care Team Providers Care Band Attacher Name Role Phone ISHAN QURESHI Referring Provider [phone] ISHAN QURESHI Primary Care Provider Assessment Encounter Date Assessment Date Assessment LastModified by Organization Details LastModified Time 06/02/2023 06/02/2023 HPI : T maryanne you for the pleasure of requesting a consultation on this patient. Patient comes in complaining of right hip pain. T his patient is experiencing right hip pain for a period lasting greater than the last three months, which is severe (VAS score greater than or equal to 6 on a 0-10 scale) in intensity and the restriction of function (appropriate for a patient of this age) are intolerable. The pain substantially limits activities of daily living. In particular, walking tolerance and ability to stair climb is reduced. Conservative management such as non-steroidal anti-inflammatory medications available by prescription, physician directed therapy, ice and/or heat and activity modification have been minimally effective or deemed insufficient by the patient for a period lasting greater than 3-6 months in duration. Assistive devices and external support were not deemed by the patient to be helpful in improving their function. The patient is unable to tolerate further physical therapy at this time. Review of systems is negative for rapidly progressive neurological disorder, chest pain, shortness of breath, fevers, chills, or any signs of active or persistent local or systemic infection. Physical Exam : Patient is well nourished, well-developed, in no acute distress, with appropriate mood and affect. The patient is oriented to time, place, and person. Respirations are even and unlabored. Gait evaluation reveals a limp. There is no inguinal adenopathy. Examination of the contralateral hip shows normal range of motion, strength, no tenderness, and intact skin. The affected limb is well-perfused, shows a grossly normal motor and sensory examination. Examination of the hip shows no skin lesions. Hip motion is reduced and causes pain. FADIR is positive and CHIRAG is positive. Stinchfield test is positive. Leg lengths are approximately right less than left by 5 mm. Both hips are stable and muscle strength is normal. Pedal pulses are palpable. Assessment/Plan : The patient is an appropriate candidate for consideration of right total hip replacement. An extensive discussion was conducted of the natural history of the disease and the variety of surgical and non-surgical treatment options available to the patient. A risk/benefit analysis was discussed with the patient reviewing the advantages and disadvantages of surgical intervention at this time. A full explanation was given of the nature and the purpose of the procedure and anesthesia, its benefits, possible alternative methods of diagnosis or treatment, the risks involved, the possibility of complications, the foreseeable consequences of the procedure and the possible results of the non-treatment. No guarantee or assurance was made as to the results that may be obtained. Specifically, the risks were identified to include, but are not limited to the following: Infection, phlebitis, pulmonary embolism, , paralysis, dislocation, pain, stiffness, instability, limp, weakness, breakage, leg-length inequality, uncontrolled bleeding, nerve injury, blood vessel injury, pressure sores, anesthetic risks, delayed healing of wound and bone, and wear and loosening. Additional risks of robotic hip replacement were discussed (if used) including but not limited to pin site infection, draining, longer incision, longer OR time, and fracture near the pin sites. Further discussion was undertaken with the patient about the details of surgical preparation, treatment, and postoperative rehabilitation including medical clearance, autotransfusion, the hospital course, and the postoperative rehabilitation involved. As a part of routine preoperative counseling, if the patient is a smoker, the patient recognizes the increased risk of complications in patients who utilize tobacco products. The patient has also been counseled regarding the elevated risk of surgical complications in patients with an elevated BMI. The patient demonstrates understanding of the increased risk in such patients. The patient was encouraged to participate in physical activity and diet modification under the direction of their primary care physician. We will plan on proceeding with right total hip arthroplasty using the [place] hip replacement system. However, it is possible during the preoperative planning process or due to intraoperative findings that a different implant system may be utilized in order to optimize the patient's outcome. We had a discussion regarding implant and bearing options. We had a detailed discussion of the advantages and limitations of the specific implant designs, materials and bearing surfaces. All questions were answered to the patient's satisfaction, and the patient was asked to call the office with any further concerns. All in all, I feel that this patient is a good candidate for surgical reconstruction. Plan for right total hip replacement on August 10, 2023 at [facility]. Not available 06/02/2023 12:18:12 08/28/2023 08/28/2023 HPI : Patient is here for a 2 week follow-up from a right MANN. Patient denies fevers, chest pain and shortness of breath. Patient has been compliant with anticoagulant protocol. She is doing great 2 weeks status post her surgery. She is using Eliquis for the prevention of DVT and is not requiring any analgesia. She is doing physical therapy and home. Physical Exam : Patient is well nourished, well- developed, in no acute distress, with appropriate mood and affect. The patient demonstrates good hip motion and strength. The incision is clean and dry with no signs of infection. Negative calf tenderness, negative Juan Jose's sign. Assessment/Plan : The patient is doing well 2 weeks from total hip arthroplasty. Patient will continue and complete 28 day anticoagulation therapy and continue physical therapy. Return for follow-up in 1 month; sooner with any problems. Not available 08/28/2023 10:50:06 10/06/2023 10/06/2023 HPI : Patient is here for a 8 week follow-up from a right MANN. She is recovering well. She is walking without assistive device. She has occasional discomforts, but they are improving with time. Her strength is improving. She is still doing home physical therapy. Physical Exam : Patient is well nourished, well- developed, in no acute distress, with appropriate mood and affect. The patient is AAOx3. The patient demonstrates good hip motion and strength. The incision is well healing. Assessment/Plan : The patient is functioning well 8 weeks from total hip arthroplasty. Continue physical therapy as needed. Return for follow-up in 2 months with x-rays at that time. Not available 10/06/2023 13:12:07 11/30/2023 11/30/2023 HPI : Patient is here for 4 month(s) follow-up for RIGHT total hip replacement. Indy quezada reports good pain relief in the hip and satisfactory temple of function in terms of activities of daily living. Their condition is improved relative to their pre-operative condition. Her right hip is pain-free. She is very pleased with the results of her hip replacement. She has not encountered any problems and has not had any falls. Physical Exam : Patient is well nourished, well-developed, in no acute distress, with appropriate mood and affect. The patient is oriented to time, place, and person. There is no inguinal adenopathy. The operative limb is well-perfused, with well healed skin incision. The patient demonstrates good hip motion, stability, and strength. There is no pain with ROM Muscle strength is normal. Distal NVMS checks are intact. Assessment/Plan : This patient is functioning well after total hip arthroplasty. Continue to work on hip conditioning exercises. Mfcj-ocy-iaxbrlh medications as needed. The patient understands that ultimate failure may occur due to mechanical wear, loosening or breakage. Follow-up at one year post-op is recommended to assess for the possibility of failure. Follow up sooner with any problems. A total of 26 minutes were spent reviewing previous charting, obtaining history and physical exam, and reviewing treatment plan. This patient was seen and evaluated by William Judd MS, PA-C in indirect conjunction with documenting/superv ising provider Kurt Parkinson MD. He agrees with history, physical examination, tests/diagnostic imaging, and treatment plan. Not available 11/30/2023 13:15:35 Plan of Treatment Reminders Order Date Submit Date Provider Last Modified By Organization Details Last Modified Time Details Appointments None recorded. Lab None recorded. Referral None recorded. Procedures None recorded. Surgeries total hip arthroplast y (SURG) 2022 023 [facility], [address], [place], [address], 3 10:40:34 Imaging XR, hip, unilateral, 2 or 3 view 2023 024 [facility], [address], [place], [address], 4 13:21:48 XR, hip, unilateral, 2 or 3 view 2022 023 [facility], [address], [place], [address], 3 12:11:26 Medication Orders None recorded. Patient TargetsNo targets recorded. Patient Instructions Encounter Date Encounter Id Patient Instructions Last Modified By Organization Details Last Modified Time 06/02/2023 [id number] AP Pelvis, AP an d lateral radiographs of the right hip taken today demonstrate degenerative joint disease of the hip with definite joint space narrowing, osteophyte formation, and subchondral sclerosis. There is ygyp-ke-asuv articulation. Not available 06/02/2023 12:17:39 11/30/2023 [id number] view x-ray dayana dy of right hip obtained during today's office encounter does not show any signs of implant related issues including loosening, malposition, instability, periprosthetic fracture, periosteal reaction or infection. Not available 11/30/2023 13:15:54 Reason for Referral None Reported. Results Created Date Observation Date Name Description Value Unit Range Abnormal Flag Note LastModifiedBy Organization Detail LastModifiedTime Result Notes None recorded. Problems Name Problem SNOMED Code Status Onset Date Resolution Date Notes Provider Name and Address Organization Details Recorded Time Pulmonary embolism 10669852 Active 2021 Bilateral pulmonary embolism Not Available [facility] 5 23:07:08 Bipolar disorder, most recent episode depressio n 327550977 Active 2021 Bipolar disorder, in partial remission , most recent episode depressed Not Available 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 Procedures Surgical History Date Name Laterality Status Provider Name and Address Organization Details Recorded Time TOTAL HIP [facility] ([facility]/11/[facility]23 10:41:00 Imaging Results None recorded. Procedure Notes None recorded. Medical Equipment None Reported. Allergies Allergen ID Allergen Name Allergen Category Reaction Reaction Severity Criticality Documentation Date Start Date Code Code System Note Provider Name and Address Organization Details Recorded Time 43294 trimethop rim medicatio n Not available Not available Not available 08/19/20252021 97323 RxNorm Other react ion(s ): Drug fever Not Available [facility] 5 01:15:49 82467 sulfameth oxazole medicatio n Not available Not available Not available 08/19/20252021 51449 RxNorm Other react ion(s ): Drug fever Not Available [facility] 5 01:15:49 Medications Name Sig Start Date Stop Date Status Note LastModified by Organization Details LastModified Time docusate sodium 100mg soft gels TAKE ONE CAPSULE BY MOUTH TWICE DAILY active Not Available Not Available No t Available atorvastatin 80 mg tablet TAKE 1 TABLET BY MOUTH DAILY active Not Available Not Available No t Available trazodone 50 mg tablet TAKE 1 TABLET BY MOUTH AT BEDTIME active Not Available Not Available No t Available carbidopa 25 mg-levodopa 250 mg tablet TAKE 2 TO 3 TABLETS BY MOUTH EVERY DAY active Not Available Not Available No t Available meloxicam 15 mg tablet 10/06 completed Not Available Not Available Not Available olanzapine 5 mg tablet TAKE 1 TABLET BY MOUTH AT BEDTIME active Not Available Not Available No t Available olanzapine 10 mg tablet TAKE 1 TABLET BY MOUTH AT BEDTIME active Not Available Not Available No t Available divalproex 500 mg tablet,delay ed release TAKE 1 TABLET BY MOUTH AT BEDTIME active Not Available Not Available No t Available ondansetron 8 mg disintegrati ng tablet 10/06 completed Not Available Not Available Not Available methocarbamo l 750 mg tablet 10/06 completed Not Available Not Available Not Available tamsulosin 0.4 mg capsule TAKE 1 CAPSULE BY MOUTH EVERY DAY 30 MINUTES AFTER THE SAME MEAL active Not Available Not Available No t Available cephalexin 500 mg capsule TAKE 1 CAPSULE BY MOUTH TWICE DAILY active Not Available Not Available No t Available pantoprazole 40 mg tablet,delay ed release 10/06 completed Not Available Not Available Not Available divalproex ER 500 mg tablet,exten ded release 24 hr TAKE 1 TABLET BY MOUTH DAILY active Not Available Not Available No t Available docusate sodium 100 mg capsule TAKE 1 CAPSULE BY MOUTH 2 TIMES DAILY active Not Available Not Available No t Available polyethylene glycol 3350 17 gram/dose oral powder MIX 17 GRAMS IN LIQUID AND DRINK DAILY active Not Available Not Available No t Available olanzapine 20 mg tablet Take 1 tablet (20 mg total) by mouth every night at bedtime. 2021 active Not Available Not Available Not Avai lable oxycodone 5 mg tablet 10/06 completed Not Available Not Available Not Available diclofenac 1 % topical gel Apply topicall y. 2020 active Not Available Not Available Not Avai lable Eliquis 5 mg tablet TAKE 1 TABLET BY MOUTH TWICE DAILY active Not Available Not Available No t Available Eliquis 2.5 mg tablet 10/06 completed Not Available Not Available Not Available Vitals Date Recorded Body height Body mass index (BMI) Body weight Provider Name and Address Organization Details Last Updated DateTime 06/02/2023 152.4 cm 21.1 kg/m2 98925.98 g Luz Allen [place] [facility] 06/02/2023 11:11:40 Date Recorded Body height Body mass index (BMI) Body weight Provider Name and Address Organization Details Last Updated DateTime 08/28/2023 152.4 cm 21.1 kg/m2 [address].[address] [facility] 08/28/2023 10:33:12 Date Recorded Body mass index (BMI) Body weight Heart rate Body temperature Oxygen saturation Oxygen saturation in Arterial blood by Pulse oximetry Systolic And Diastolic Provider Name and Address Organization Details Last Updated DateTime 3 21.69 kg/m2 01289 g 81 /min 98.204 [degF] 97 % 97 % 125/86 mm[Hg] Not Available [facility] 5 00:53:01 Social History None recorded. Functional Status None recorded. Mental Status None recorded. Family History Relationship Description Onset Age of this Age Resolved Age Notes LastModified by Organization Details LastModified Time Brother Deep venous thrombosis [email or web address] Not available 06/02 11:12:29 Mother Family history of malignant neoplasm [email or web address] Not available 2022 11:12:55 Medical History Condition Response Bleeding Disorder Y Hypertension Y Gynecological HistoryNo gynecological history recorded. Obstetrics History GPAL:G 0 P 0 0 0 0 Past Encounters Encounter ID Performer Location Encounter Start Date Encounter Closed Date Diagnosis/Indication Diagnosis SNOMED-CT Code Diagnosis ICD10 Code Diagnosis IMO Codes Diagnosis Note [id number] MD ALOK Starrsera [address] [address] 06/02/2023 10:12:54 06/02/2023 11:44:39 Pain of right hip joint 4172442579 51237 M25.551 Arthritis of hip 2634289 6 M13.859 Osteoarthr itis of right hip joint 4538012709 52665 M16.11 [id number] [address] 08/28/2023 10:27:03 08/28/2023 10:50:57 History of total replacement of right hip joint 8834864590 71630 Z96.641 [id number] MD ALOK Starr [address] [address] 10/06/2023 12:38:31 10/06/2023 13:07:30 History of total replacement of right hip joint 9716190193 24704 Z96.641 Aftercare 888111453 Z47. 1 [id number] PANFILO SKELTONsera [address] [facility] [address] [place] [place] [place] [address] 11/30/2023 12:52:28 11/30/2023 13:15:45 History of total replacement of right hip joint 2557082382 42741 Z96.641 Health Concerns Section Related Observation LastModified by Organization Detai ls LastModified Time None Recorded Concern Status LastModified by Organization Details LastModified Time None Recorded Advance Directives Directive None Recorded Payers Insurance Date Sequence Insurance Name Policy Number Policy Lopez Covered Member ID Lopez Member ID Guarantor Name 08/12/2024 1 [facility] (MEDICARE REPLACEMENT/A DVANTAGE - PPO) [id number] Dena Vanegas Case [id number] Dena Case OBGyn Episode No OBEpisode recorded.
--- OUTSIDE RECORDS SUMMARY | 2025-11-05 19:00 | XMS_ITS | Clinical Summary ---
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 03-10 00:00: 00 DIFFICULTY IN WALKING, NOT ELSEWHERE CLASSIFIED Active 1- 00:00: 00 CONSTIPATION , UNSPECIFIED Active 2022-11 00:00: 00 REPEATED FALLS Active 2022-11 00:00: 00 ESSENTIAL (PRIMARY) HYPERTENSION Active 2022-11 00:00: 00 INSOMNIA, UNSPECIFIED Active 2022-11 00:00: 00 MUSCLE WEAKNESS (GENERALIZED ) Active 2022-11 00:00: 00 Allergies, Adverse Reactions, Alerts Allergy Name Allergy Type Status Severity Reaction(s) Onset Date Inactive Date Treating Clinician Comments NKA Propensity to adverse reactions Active 2023-10 20:47:5 6 Medications Ordered Medication Name Filled Medication Name Start Date Stop Date Current Medication? Ordering Clinician Indication Dosage Frequency Signature (SIG) Comments Components lisinopril 20 mg tablet 03-23 00:00: 00 11-02 23:59 :00 No [id number] 1 tablet DAILY 1 tablet DAILY (route: oral) Med Classific ation: Cardiovas cular Therapy Agents olanzapine 20 mg tablet 03-23 00:00: 00 11-02 23:59 :00 No [id number] 1 tablet BEDTIME 1 tablet BEDTIME (route: oral) Med Classific ation: Central Nervous System Agents Protonix 40 mg tablet,luly yed release 05 00:00: 00 11-02 23:59 :00 No [id number] 1 tablet DAILY 1 tablet DAILY (route: oral) Med Classific ation: Gastroint estinal Therapy Agents trazodone 50 mg tablet 08-10 00:00: 00 Yes [id number] 50 mg AT BEDTIME 50 mg AT BEDTIME (route: oral) Med Classific ation: Central Nervous System Agents lisinopril 20 mg tablet 2020-11 00:00: 00 01-20 23:59 :00 No [id number] 20 mg DAILY 20 mg DAILY (route: oral) Med Classific ation: Cardiovas cular Therapy Agents olanzapine 20 mg tablet 2020-11 00:00: 00 06-30 23:59 :00 No [id number] 20 mg AT BEDTIME 20 mg AT BEDTIME (route: oral) Med Classific ation: Central Nervous System Agents atorvastati n 80 mg tablet 08-23 00:00: 00 11-09 23:59 :00 No [id number] 80 mg AT BEDTIME 80 mg AT BEDTIME (route: oral) Med Classific ation: Cardiovas cular Therapy Agents Depakote ER 500 mg tablet,exte nded release 2020-11 00:00: 00 12-01 23:59 :00 No [id number] 500 mg BEDTIME 500 mg BEDTIME (route: oral) Med Classific ation: Central Nervous System Agents Depakote ER 500 mg tablet,exte nded release 2020-11 00:00: 00 Yes [id number] 500 mg BEDTIME 500 mg BEDTIME (route: oral) Med Classific ation: Central Nervous System Agents atorvastati n 80 mg tablet 12-01 00:00: 00 Yes [id number] 80 mg EVERY AM 80 mg EVERY AM (route: oral) Med Classific ation: Cardiovas cular Therapy Agents Colace 100 mg capsule - 00:00: 00 Yes [id number] 100 mg 2 TIMES DAILY 100 mg 2 TIMES DAILY (route: oral) Med Classific ation: Gastroint estinal Therapy Agents Eliquis 5 mg tablet 2-24 00:00: 00 05-10 23:59 :00 No [id number] 5 mg 2 TIMES DAILY 5 mg 2 TIMES DAILY (route: oral) Med Classific ation: Hematolog ical Agents tamsulosin 0.4 mg capsule 2-24 00:00: 00 Yes [id number] 0.4 capsule BEDTIME 0.4 capsule BEDTIME (route: oral) Med Classific ation: Genitouri nary Therapy Eliquis 5 mg tablet 6-19 00:00: 00 05-05 23:59 :00 No [id number] 5 mg 2 TIMES DAILY 5 mg 2 TIMES DAILY (route: oral) Med Classific ation: Hematolog ical Agents carbidopa 25 mg-levodopa 250 mg disintegrat ing tablet 4-21 00:00: 00 05-12 23:59 :00 No [id number] 25-250 mg 2 TIMES DAILY 25-250 mg 2 TIMES DAILY (route: oral) Med Classific ation: Central Nervous System Agents carbidopa 25 mg-levodopa 250 mg disintegrat ing tablet 620 00:00: 00 Yes [id number] 25 mg 3 TIMES DAILY 25 mg 3 TIMES DAILY (route: oral) Med Classific ation: Central Nervous System Agents aspirin 81 mg chewable tablet 615 00:00: 00 06-30 23:59 :00 No [id number] 81 mg DAILY 81 mg DAILY (route: oral) Med Classific ation: Hematolog ical Agents olanzapine 5 mg tablet 8-04 00:00: 00 Yes [id number] 1 tablet BEDTIME 1 tablet BEDTIME (route: oral) Med Classific ation: Central Nervous System Agents olanzapine 5 mg tablet 8-05 00:00: 00 Yes [id number] 1 tablet BEDTIME 1 tablet BEDTIME (route: oral) Med Classific ation: Central Nervous System Agents Vital Signs Vital Name Observation Time Observation Value Commen ts Temperature 2025-10-08 07:32:00.000 97.9 [degF] Temperature 2025-10-07 07:19:00.000 97.6 [degF] Temperature 2025-10-06 07:21:00.000 97.5 [degF] Temperature 2025-10-05 07:04:00.000 97.5 [degF] Temperature 2025-10-04 07:17:00.000 97.5 [degF] Temperature 2025-10-03 07:30:00.000 97.8 [degF] Temperature 2025-10-02 07:21:00.000 97.8 [degF] Temperature 2025-10-01 07:26:00.000 97.5 [degF] Temperature 2025-09-30 07:22:00.000 97.4 [degF] Temperature 2025-09-29 07:09:00.000 97.5 [degF] Temperature 2025-09-28 07:16:00.000 97.5 [degF] Temperature 2025-09-27 07:29:00.000 97.6 [degF] Temperature 2025-09-25 07:17:00.000 97.5 [degF] Temperature 2025-09-24 07:11:00.000 97.8 [degF] Temperature 2025-09-23 07:18:00.000 97.5 [degF] Temperature 2025-09-22 07:03:00.000 97.5 [degF] Temperature 2025-09-21 06:45:00.000 98 [degF] Temperature 2025-09-20 06:44:00.000 97.9 [degF] Temperature 2025-09-19 07:27:00.000 97.5 [degF] Temperature 2025-09-18 07:22:00.000 97.7 [degF] Temperature 2025-09-17 07:26:00.000 97.5 [degF] Temperature 2025-09-16 07:27:00.000 97.7 [degF] Temperature 2025-09-15 07:31:00.000 97.6 [degF] Temperature 2025-09-14 07:49:00.000 97.5 [degF] Temperature 2025-09-13 07:15:00.000 97.5 [degF] Temperature 2025-09-12 07:01:00.000 97 [degF] Temperature 2025-09-11 07:16:00.000 97.7 [degF] Temperature 2025-09-10 07:33:00.000 97.5 [degF] Temperature 2025-09-09 07:40:00.000 97.5 [degF] Temperature 2025-09-08 07:29:00.000 97.5 [degF] Plan of Treatment Planned Activity Planned Date Details Comments Future Scheduled Test SKILLED NU RSE TO EVALUATE PATIENT, IDENTIFY PRIMARY AND CO-MORBID CONDITIONS CODED PER CODING GUIDELINES, AND DEVELOP PATIENT SPECIFIC PLAN OF CARE THAT INCLUDES PATIENT GOAL FOR HOME HEALTH. [code = SKILLED NURSE TO EVALUATE PATIENT, IDENTIFY PRIMARY AND CO-MORBID CONDITIONS CODED PER CODING GUIDELINES, AND DEVELOP PATIENT SPECIFIC PLAN OF CARE THAT INCLUDES PATIENT GOAL FOR HOME HEALTH.] Future Scheduled Test SKILLED NU RSE TO PERFORM HOME SAFETY AND FALL ASSESSMENT AND PROVIDE INSTRUCTION TO IMPLEMENT HOME SAFETY AND FALL PREVENTION STRATEGIES. [code = SKILLED NURSE TO PERFORM HOME SAFETY AND FALL ASSESSMENT AND PROVIDE INSTRUCTION TO IMPLEMENT HOME SAFETY AND FALL PREVENTION STRATEGIES.] Future Scheduled Test PATIENT DAVE S A RISK OF HOSPITALIZATION AND ED USE. SKILLED NURSE TO ESTABLISH SUPPORT MEASURES TO MINIMIZE RISK OF HOSPITALIZATION AND ED USE, AND INSTRUCT PATIENT/CAREGIVER ON METHODS TO REDUCE AVOIDABLE HOSPITALIZATION AND ED USE. [code = PATIENT HAS A RISK OF HOSPITALIZATION AND ED USE. SKILLED NURSE TO ESTABLISH SUPPORT MEASURES TO MINIMIZE RISK OF HOSPITALIZATION AND ED USE, AND INSTRUCT PATIENT/CAREGIVER ON METHODS TO REDUCE AVOIDABLE HOSPITALIZATION AND ED USE.] Future Scheduled Test SKILLED NU RSE TO PROVIDE INSTRUCTION TO PATIENT/CAREGIVER RELATED TO DISCHARGE PLANNING. [code = SKILLED NURSE TO PROVIDE INSTRUCTION TO PATIENT/CAREGIVER RELATED TO DISCHARGE PLANNING.] Future Scheduled Test SKILLED NU RSE TO O/A OF PATIENTS MENTAL/BEHAVIORAL STATUS, ASSESS VITAL SIGNS DAILY [code = SKILLED NURSE TO O/A OF PATIENTS MENTAL/BEHAVIORAL STATUS, ASSESS VITAL SIGNS DAILY] Future Scheduled Test CLINICAL S UMMARY (SOC/RECERT, 10 DAY, 60 DAY): THE PATIENT IS RECEIVING HOMECARE DUE TO NEW ONSET/EXACERBATION OF: YES RECENT HOSPITALIZATION/INPATIENT ADMISSION RELATED TO: NO NEW OR CHANGED MEDICATIONS PERTINENT TO THE PLAN OF CARE: YES PATIENT LIVING SITUATION/CAREGIVER STATUS: ALONE SUMMARIZE SKILLED NEED: MEDICATION MANAGEMENT, VITAL SIGN ASSESSMENT, MENTAL STATUS ASSESSMENT AND DIAGNOSIS MANAGEMENT (REMOVE THE FOLLOWING STATEMENT IF NOT APPLICABLE) MEDICATIONS ADMINISTERED AND/OR PREPOURED PER MEDICATION PROFILE [code = CLINICAL SUMMARY (SOC/RECERT, 10 DAY, 60 DAY): THE PATIENT IS RECEIVING HOMECARE DUE TO NEW ONSET/EXACERBATION OF: YES RECENT HOSPITALIZATION/INPATIENT ADMISSION RELATED TO: NO NEW OR CHANGED MEDICATIONS PERTINENT TO THE PLAN OF CARE: YES PATIENT LIVING SITUATION/CAREGIVER STATUS: ALONE SUMMARIZE SKILLED NEED: MEDICATION MANAGEMENT, VITAL SIGN ASSESSMENT, MENTAL STATUS ASSESSMENT AND DIAGNOSIS MANAGEMENT (REMOVE THE FOLLOWING STATEMENT IF NOT APPLICABLE) MEDICATIONS ADMINISTERED AND/OR PREPOURED PER MEDICATION PROFILE] Future Scheduled Test SKILLED NU RSE WILL MAINTAIN SITUATIONAL AWARENESS FOR SAFETY AND WILL NOTIFY CLINICAL LICENSED MENTAL HEALTH PROFESSIONAL AND PHYSICIAN/PROVIDER WITH ANY CHANGE IN CONDITION. [code = SKILLED NURSE WILL MAINTAIN SITUATIONAL AWARENESS FOR SAFETY AND WILL NOTIFY CLINICAL LICENSED MENTAL HEALTH PROFESSIONAL AND PHYSICIAN/PROVIDER WITH ANY CHANGE IN CONDITION.] Future Scheduled Test SKILLED NU RSE TO REVIEW PATIENT MEDICATIONS. INSTRUCT PATIENT/CAREGIVER ON MONITORING OF EFFECTIVENESS, ADVERSE DRUG REACTIONS, SIDE EFFECTS OF ALL MEDICATIONS (PRESCRIPTION/-OTC), AND HOW AND WHEN TO REPORT PROBLEMS. [code = SKILLED NURSE TO REVIEW PATIENT MEDICATIONS. INSTRUCT PATIENT/CAREGIVER ON MONITORING OF EFFECTIVENESS, ADVERSE DRUG REACTIONS, SIDE EFFECTS OF ALL MEDICATIONS (PRESCRIPTION/-OTC), AND HOW AND WHEN TO REPORT PROBLEMS.] Future Scheduled Test SKILLED NU RSE TO ADMINISTER MEDICATIONS DAILY AND PRE-POUR MEDICATIONS TILL NEXT [facility] VISIT PER MEDICATION LIST. [code = SKILLED NURSE TO ADMINISTER MEDICATIONS DAILY AND PRE-POUR MEDICATIONS TILL NEXT [facility] VISIT PER MEDICATION LIST.] Future Scheduled Test SKILLED NU RSE FOR MEDICATION ADMINISTRATION PER MEDICATION LIST TO BE PERFORMED DAILY [code = SKILLED NURSE FOR MEDICATION ADMINISTRATION PER MEDICATION LIST TO BE PERFORMED DAILY] Future Scheduled Test SKILLED NU RSE FOR O/A AND SKILLED TEACHING RELATED TO MANAGEMENT OF DEPRESSIVE SYMPTOMS AND/OR DEPRESSION. SN TO REPORT SIGNIFICANT CHANGE IN DEPRESSIVE SYMPTOMS TO CLINICAL PROVIDER FOR EARLY INTERVENTION. [code = SKILLED NURSE FOR O/A AND SKILLED TEACHING RELATED TO MANAGEMENT OF DEPRESSIVE SYMPTOMS AND/OR DEPRESSION. SN TO REPORT SIGNIFICANT CHANGE IN DEPRESSIVE SYMPTOMS TO CLINICAL PROVIDER FOR EARLY INTERVENTION.] Future Scheduled Test SKILLED NU RSE FOR O/A OF ALTERED THOUGHT PROCESS AND/OR DISRUPTION IN COGNITIVE OPERATIONS AND ACTIVITIES [code = SKILLED NURSE FOR O/A OF ALTERED THOUGHT PROCESS AND/OR DISRUPTION IN COGNITIVE OPERATIONS AND ACTIVITIES] Future Scheduled Test SKILLED NU RSE TO ASSESS PATIENT S PSYCHOSOCIAL STATUS TO IDENTIFY POTENTIAL ISSUES THAT MAY COMPLICATE THE PROVISION OF THE PLAN OF CARE INCLUDING THE PATIENT S ABILITY TO ACCESS COMMUNITY RESOURCES AND PSYCHOSOCIAL SUPPORT SERVICES. [code = SKILLED NURSE TO ASSESS PATIENT S PSYCHOSOCIAL STATUS TO IDENTIFY POTENTIAL ISSUES THAT MAY COMPLICATE THE PROVISION OF THE PLAN OF CARE INCLUDING THE PATIENT S ABILITY TO ACCESS COMMUNITY RESOURCES AND PSYCHOSOCIAL SUPPORT SERVICES.] Future Scheduled Test SKILLED NU RSE FOR O/A OF CLIENT'S SOCIAL ISOLATION AND PROVIDE ASSISTANCE TO CLIENT IN DEVELOPMENT OF PLANNED ACTIVITIES [code = SKILLED NURSE FOR O/A OF CLIENT'S SOCIAL ISOLATION AND PROVIDE ASSISTANCE TO CLIENT IN DEVELOPMENT OF PLANNED ACTIVITIES] Future Scheduled Test MEDICATION S WILL BE HELD AND STORED IN LOCKBOX [code = MEDICATIONS WILL BE HELD AND STORED IN LOCKBOX] Goal 2024-11-07 Patient Goal - [facility] Goal 2024-01-12 Patient Goal - [facility] Goal 2024-09-09 Patient Goal - [facility] Goal 2024-07-10 Patient Goal - [facility] Goal 2024-05-11 Patient Goal - [facility] Goal 2024-03-12 Patient Goal - [facility] Goal Patient Goal - [facility] Goal 2025-09-03 Patient Goal - [facility] Goal 2025-07-07 Patient Goal - [facility] Goal 2025-05-06 Patient Goal - [facility] Goal 2025-03-07 Patient Goal - [facility] Goal 2025-01-06 Patient Goal - [facility] Goal Provider Goal - A PLAN OF CARE WILL BE ESTABLISHED THAT MEETS PATIENT'S [facility]PC NEEDS AND INCLUDES PATIENT GOAL FOR HOME HEALTH. Goal Provider Goal - PATIENT/CAREGIVER WILL VERBALIZE/DEMONSTRATE EFFECTIVE HOME SAFETY AND FALL PREVENTION STRATEGIES THROUGHOUT CERTIFICATION PERIOD. Goal Provider Goal - PATIENT WILL HAVE SUPPORT MEASURES ESTABLISHED TO PREVENT HOSPITALIZATION AND ED USE AND PATIENT/CAREGIVER WILL VERBALIZE/DEMONSTRATE METHODS TO REDUCE AVOIDABLE HOSPITALIZATION AND ED USE BY END OF EPISODE. Goal Provider Goal - PATIENT/CAREGIVER WILL VERBALIZE UNDERSTANDING OF DISCHARGE PLANNING INSTRUCTIONS BY DATE OF DISCHARGE. Goal Provider Goal - ALTERED MENTAL/BEHAVIORAL STATUS WILL BE IDENTIFIED PROMPTLY AND INTERVENTION INITIATED QUICKLY TO MINIMIZE ASSOCIATED RISKS THROUGHOUT CERTIFICATION PERIOD. Goal Provider Goal - PATIENT WILL REMAIN SAFE, FREE FROM HOSPITALIZATION, AND ADHERE TO THE SKILLED NURSE S PLAN OF CARE THROUGHOUT THE CERTIFICATION PERIOD. Goal Provider Goal - PATIENT WILL REMAIN SAFE IN THE COMMUNITY AND WILL BE FREE OF DANGER TO SELF AND OTHERS THROUGHOUT THE CERTIFICATION PERIOD. Goal Provider Goal - PATIENT/CAREGIVER WILL VERBALIZE UNDERSTANDING OF EDUCATION PROVIDED ON MEDICATIONS BY THE END OF THE CERTIFICATION PERIOD. Goal Provider Goal - PATIENT WILL COMPLY WITH MEDICATION WHEN SKILLED NURSE ADMINISTERS AND PRE-POURS MEDICATION THROUGHOUT CERTIFICATION PERIOD. Goal Provider Goal - PATIENT WILL COMPLY WITH MEDICATION WHEN NURSE ADMINISTERS THROUGHOUT CERTIFICATION PERIOD. Goal Provider Goal - PATIENT WILL REMAIN SAFE WITHOUT DECOMPENSATION IN DEPRESSIVE CONDITION, WHILE MAINTAINING OPTIMAL LEVEL OF MENTAL HEALTH AND WELL BEING THROUGHOUT CERTIFICATION PERIOD. Goal Provider Goal - PATIENT WILL BE ABLE TO PERFORM DAILY FUNCTIONS AND HAVE OPTIMAL IMPROVEMENT IN THOUGHT PROCESS THROUGHOUT CERTIFICATION PERIOD. Goal Provider Goal - PSYCHOSOCIAL NEEDS WILL BE IDENTIFIED AND PLAN IMPLEMENTED TO MINIMIZE RISK THROUGHOUT CERTIFICATION PERIOD. Goal Provider Goal - PATIENT WILL DEMONSTRATE AN INCREASED INTEREST IN SOCIALIZATION AND ACTIVITIES BY THE END OF THE CERTIFICATION PERIOD. Goal Provider Goal - MEDICATION WILL BE STORED IN LOCKBOX FOR SAFETY. Progress Notes Progress Notes <paragraph>[Visit Date: 2024 by JULIUS SENIOR RN]:</paragraph><paragraph>SN EDUCATED PATIENT THAT ASSISTED USE OF SMOKING CAN EFFECT THE RESPIRATORY SYSTEM, INCLUDING AN INCREASED RISK FOR LUNG CANCER, SHORTNESS OF BREATH AND CIRCULATION PROBLEMS, PATIENT VERBALIZED UNDERSTANDING.</paragraph> <paragraph>[Visit Date: 2024 by JULIUS SENIOR RN]:</paragraph><paragraph>PATIENT EDUCATED THAT LACK OF AMBULATION/ACTIVITY INCREASES THE RISK FOR SKIN BREAKDOWN/OPEN AREAS, WAYS TO REDUCE SKIN IMPAIRMENT INCLUDE CHANGING POSITIONS OFTEN, SUPPORTING SELF WITH PILLOWS, AND EATING A WELL BALANCED DIET, PATIENT VERBALIZED UNDERSTANDING.</paragraph> <paragraph>[Visit Date: 2024 by JULIUS SENIOR RN]:</paragraph><paragraph>PATIENT EDUCATED THAT LACK OF AMBULATION/ACTIVITY INCREASES THE RISK FOR SKIN BREAKDOWN/OPEN AREAS, WAYS TO REDUCE SKIN IMPAIRMENT INCLUDE CHANGING POSITIONS OFTEN, SUPPORTING SELF WITH PILLOWS, AND EATING A WELL BALANCED DIET, PATIENT VERBALIZED UNDERSTANDING.</paragraph> Encounters Start Date/Time End Date/Time Encounter Type Admission Type Attending [facility] Care Department Encounter ID Discharge Date Discharge Status Discharge Condition Discharge Reason Percent Goals Met 2025-09-08 00:00:00 2025-11-06 00:00:00 Outpatient RECERTIFIC ATION JULIUS SENIOR [facility] [id number]
== END 2025-10-09 15:10 | disposition home or self-care (01) ==
LOC: HO.HSM 14:51
PROVIDERS: PCP Internal Medicine; Referring Provider Internal Medicine; Visit Provider Registered Nurse
DX: G21.19 Other drug induced secondary parkinsonism (principal)
CPT/HCPCS: 99213